=== PATIENT | female | born 1980 | race Caucasian/White ===

== ENCOUNTER 2025-04-19 16:10 | Outpatient (CLI) | payer OTHER, SELFPAY ==
[2025-04-19 16:48] LABS: Microscopic, Urine URINE MICROSCOPIC (MICROSCOPIC)
[2025-04-19 17:15] LABS: Hematocrit 39.2 % (37.0-47.0); Hemoglobin 13.1 g/dL (12.2-16.2); Immature Granulocytes % 0.3 %; Mean Corpuscular HGB Conc 33.4 g/dL (31.8-35.4); Mean Corpuscular Hemoglobin 29.7 pg (27.0-31.2); Mean Corpuscular Volume 88.9 fl (81-99); Nucleated Red Blood Cells % 0 %; Platelet Count 392 K/mm3 (142-424); Red Blood Count 4.41 M/mm3 (4.20-5.40); Red Cell Distribution Width-SD 41.0 fL; White Blood Count 7.7 K/mm3 (4.8-10.8)
[2025-04-19 17:16] LABS: Bilirubin,Urine Negative (Negative); Color,Urine YELLOW (Yellow); Glucose,Urine (UA) Negative (Negative); Ketones,Urine TRACE (Negative); Leukocyte Esterase,Urine Negative (Negative); PH,Urine 6.0 (5.0-8.5); Protein,Urine Negative (Negative); Specific Gravity, Urine 1.020 (1.005-1.030); Urobilinogen,Urine 0.2 EU/dl (0.2)
[2025-04-19 17:38] LABS: Alanine Aminotransferase 38 U/L (12-78); Albumin Level 4.7 g/dl (3.5-5.0); Albumin/Globulin Ratio 1.5 (1.1-1.8); Alkaline Phosphatase 84 U/L (38-126); Anion Gap 16.4 mEq/L (5-15); Aspartate Amino Transferase 29 U/L (14-36); Bilirubin,Total 1.2 mg/dl (0.2-1.3); Blood Urea Nitrogen 10 mg/dl (7-17); Calcium 10.3 mg/dl (8.4-10.2); Carbon Dioxide 26 mmol/L (22.0-30.0); Chloride 100 mmol/L (98-107); Cholesterol 215 mg/dl (140-200); Creatinine,Serum 0.70 mg/dl (0.52-1.04); Estimated Glomerular Filt Rate 91 ml/min (>60); GFR (African American) 110 ML/MIN (>60); Globulin 3.1 g/dL (1.3-3.2); Glucose 80 mg/dl (74-100); HDL Cholesterol 72 mg/dl (40-60); Potassium 4.4 mmoL/L (3.5-5.1); Sodium 138 mmol/L (136-145); Total Protein,Serum 7.8 g/dl (6.3-8.2); Triglycerides 81 mg/dl (30-150)
[2025-04-19 17:56] LABS: Free T4 (Free Thyroxine) 1.17 ng/dl (0.78-2.19)
[2025-04-19 17:58] LABS: 25-OH Vitamin D, Total 36.8 ng/mL (30-100)
[2025-04-19 18:09] LABS: Thyroid Stimulating Hormone < 0.02 uIU/mL (0.465-4.68)
[2025-04-19 18:28] LABS: Hepatitis C Ab Qual. W/ RFX NEGATIVE (Negative); Vitamin B12 293 pg/mL (239-931)
[2025-04-19 18:31] LABS: Bacteria,Urine 2+ /lpf; Mucus,Urine 1+ /lpf; RBC,Urine Occasional #/hpf (0-3)
[2025-04-19 18:42] LABS: Iron 134 ug/dL (37-170)
[2025-04-19 18:55] LABS: Hemoglobin A1C 5.1 % (4.0-6.0); Total Iron Binding Capacity 380 ug/dL (265-497)
[2025-04-19 19:21] LABS: Ferritin 14.8 ng/ml (6.24-137)
--- OUTSIDE RECORDS SUMMARY | 2025-04-20 10:48 | XMS_ITS | Clinical Summary ---
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 Role Phone Gladis Villarreal MD Primary Care Provider [phone] Allergies No known active allergies Medications atenolol (TENORMIN) 25 MG tablet 02/14/2023 Active Family History Medical History Relation Name Comments Hypertension Father Hypertension Mother Thyroid cancer Sister Relation Name Status Comments Father Alive Mother Alive Sister Alive Social History Tobacco Use Types Packs/Day Years Used Date Smoking Tobacco: Never Passive Smoke Exposure: Never Smokeless Tobacco: Never Tobacco Cessation:Counseling Given: Not Answered Alcohol Use Standard Drinks/Week Comments Yes 0 (1 standard drink = 0.6 oz pur e alcohol) Abuse Screen Answer Date Recorded Unsafe at Home or Work/School Not on file Feels Threatened by Someone? Not on file 03/2023 Does Anyone Keep You from Co ntacting Others or Doint Things Outside the Home? Not on file 04/27/2023 Physical Sign of Abuse Present Not on file 1 Housing Stability Answer Date Recorded Current Living Arrangements Not on file 03/2023 Potentially Unsafe Housing Conditions Not on larry e 04/27/2023 Family and Community Support Answer Bruce e Recorded Help with Day-to-Day Activities Not on file 04/27/2023 Lonely or Isolated Not on file 04/27/2023 Employment Answer Date Recorded Do you want help finding or keeping work or a jeane b? Not on file 04/27/2023 Disabilities Answer Date Recorded Concentrating, Remembering, or Making Decisions Difficulty Not on file 04/27/2023 Doing Errands Independently Difficulty Not on fi le 04/27/2023 Education Answer Date Recorded Help with school or training? Not on file Preferred Language Not on file 04/27/2023 Comments Unknown Sex and Gender Information Value Date Recorded Sex Assigned at Not on file Legal Sex Female 1:03 PM EDT Gender Identity Not on file Sexual Orientation Not on file Last Filed Vital Signs Vital Sign Reading Time Taken Comments Blood Pressure 124/78 10/05/2023 2:11 PM EDT Pulse 66 10/05/2023 2:11 PM EDT Temperature - - Respiratory Rate - - Oxygen Saturation 99% 10/05/2023 2:11 PM EDT Inhaled Oxygen Concentration - - Weight 59.3 kg (130 lb 12.8 oz) 10/05/2023 2:11 PM EDT Height 162.6 cm (5' 4 ) 10/05/2023 2:11 PM EDT Body Mass Index 22.45 10/05/2023 2:11 PM EDT Plan of Treatment Health Maintenance Due Date Last Done Comments Annual Gynecologic Pelvic an d Breast Exam 1981 TDAP/TD VACCINES (1 - Tdap) 02/07/2000 MAMMOGRAM 2021 ANNUAL PHYSICAL 02/16/2023 HEPATITIS C SCREENING 02/16/2023 INFLUENZA VACCINE 02/17/2025 Pneumococcal Vaccine 0-49 Aged Out No longer eligible based on patient's age to complete this topic Insurance [facility] Care Teams 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
--- OUTSIDE RECORDS SUMMARY | 2025-04-20 10:48 | XMS_ITS | Data Portability ---
Author Organization [place] - [facility] & LARS Hansen ADMIN Address [address] [place] [id number] Care Team Providers Care Tear Down Matcher Name Role Phone ОЛЕГ REED Family Medicine ОЛЕГ REED Primary Care Provider Assessment Encounter Date Assessment Date Assessment LastModified by Organization Details LastModified Time 06/02/2024 06/02/2024 given duration and recurrence of symptoms, we will plan for imaging as noted below. We have also plan for some additional lab work to assess. We discussed potential differential diagnosis including musculoskeletal cause such as iliopsoas related symptoms. [email or web address] Not available 06/02/2024 17:28:29 08/05/2024 08/05/2024 Follow up in 4 weeks. [email or web address] Not available 08/08/2024 14:52:23 09/01/2024 09/01/2024 CT findings 08/17 found a 4 mm hypodense lesion on the liver as well as a nodule in the lung. PCP is following up with chest CT. No acute intra-abdominal abnormalities or specific etiology to account for lower abdominal pain. [email or web address] Not available 09/01/2024 09:36:21 Plan of Treatment Reminders Order Date Submit Date Provider Last Modified By Organization Details Last Modified Time Details Appointments None recorded. Lab celiac disease serology panel, serum 2024 025 [facility] ([facility], [address] [facility], [place], [address], 16:10:15 CBC w/ auto diff 2024 025 [facility] ([facility], [address] [place], [address], 5 16:10:16 CMP, serum or plasma 2024 025 [facility]), [address] [place], [address], 5 16:10:17 C reactive protein, QN, serum or plasma 2024 025 [facility] [address] [place], [address], 5 16:10:19 gastrointes tinal pathogens DNA + RNA panel, LUDY+non-pro be, stool 2024 025 [facility] ([place]), [address] [place], [address], 5 11:08:46 calprotecti n, stool 2024 025 [facility] ([place] [address] [place], [address], 5 11:08:51 pancreatic elastase, quant, stool 2024 025 [facility] ([place]), [address] [place], [address], 5 11:08:50 O&P (ova & parasites), stool 2024 025 [facility] ([place]), [address] [place], [address], 5 11:08:54 H pylori Ag, qual immunoassay , stool [email or web address] ([place]), [address] [place], [address], 5 11:47:02 CMP, serum or plasma 11/2023 [facility] [address] [facility], [place], [address], 4 14:15:29 CBC w/ auto diff 2023 024 [facility] ([place]), [address] [facility], [place], [address], 4 14:15:27 lipase, serum or plasma 2023 024 [facility] [address] [facility], [place], [address], 4 14:15:34 urinalysis, dipstick 2023 ana [facility], [address], [place], [address], 4 14:19:03 ESR (erythrocyt e sedimentati on rate), blood 2023 024 [facility]), [address] [facility], [place], [address], 4 14:15:33 C reactive protein, QN, serum or plasma 2023 024 [facility] ([place]), [address] [facility], [place], [address], 4 14:15:35 rf (rheumatoid factor) + anti-ccp abs, serum 2023 024 [facility] ([place]), [address] [place], [address], 4 14:15:31 lipid panel, serum 2023 024 [facility] [address] [place], [address], 4 14:15:30 lipid panel, serum 06/05/ 2024 06/05/2 024 [facility], [address], [address], [place], [address], 4 06:19:28 HbA1c (hemoglobin A1c), blood 2023 024 [facility], [address], [address], [place], [address], 4 06:19:29 CBC w/ auto diff 2023 024 [facility], [address], [address], [place], [address], 4 06:19:26 CMP, serum or plasma 2023 024 [facility], [address], [address], [place], [address], 4 06:19:27 Referral None recorded. Procedures None recorded. Surgeries None recorded. Imaging CT, abdomen + pelvis, w/ contrast 2023 024 [facility], [address], [address], [place], [address], 5 08:43:49 XR, elbow, 3 or more view 2023 024 [email or web address] [facility] ([facility]), [address], [place], [address], 4 17:16:44 Medication Orders atenolol 25 mg tablet 2023 024 [facility], [address] [place], [address], 4 14:19:27 Patient TargetsNo targets recorded. Patient Instructions Encounter Date Encounter Id Patient Instructions Last Modified By Organization Details Last Modified Time 09/01/2024 [id number] Follow up in 2 months or sooner if needed. [email or web address] Not available 09/01/2024 09:41:29 Reason for Referral None Reported. Results Created Date Observation Date Name Description Value Unit Range Abnormal Flag Note LastModifiedBy Organization Detail LastModifiedTime 12/23/19 24 12/24/2023 CBC WITH DIFFE RENTI AL/PL ATELE T WBC 7.0 x10e3 /uL 3.4-10 .8 Not Available [facility] ([facility]) [address] [facility], [place], [address], 12/24/2023 06:19:26 12/23/19 24 12/24/2023 CBC WITH DIFFE RENTI AL/PL ATELE T RBC 4.18 x10e6 /uL 3.77-5 .28 Not Available [facility] ([facility]) [address] [place], [address], 12/24/2023 06:19:26 12/23/19 24 12/24/2023 CBC WITH DIFFE RENTI AL/PL ATELE T hemoglobin 13.1 g/dL 11.1-1 5.9 Not Available [facility] ([facility]) [address] [facility], [place], [address], 12/24/2023 06:19:26 12/23/19 24 12/24/2023 CBC WITH DIFFE RENTI AL/PL ATELE T hematocrit 39.2 % 34.0-4 6.6 Not Available [facility] ([facility]) [address] [facility], [place], [address], 12/24/2023 06:19:26 12/23/19 24 12/24/2023 CBC WITH DIFFE RENTI AL/PL ATELE T MCV 94 fL 79-97 Not Available [facility] ([facility]) [address] [facility], [place], [address], 12/24/2023 06:19:26 12/23/19 24 12/24/2023 CBC WITH DIFFE RENTI AL/PL ATELE T MCH 31.3 pg 26.6-3 3.0 Not Available [facility] ([facility]) [address] [facility], [place], [address], 12/24/2023 06:19:26 12/23/19 24 12/24/2023 CBC WITH DIFFE RENTI AL/PL ATELE T MCHC 33.4 g/dL 31.5-3 5.7 Not Available [facility] ([facility]) [address] [facility], [place], [address], 12/24/2023 06:19:26 12/23/19 24 12/24/2023 CBC WITH DIFFE RENTI AL/PL ATELE T RDW 12.0 % 11.7-1 5.4 Not Available [facility] ([facility]) [address] [facility], [place], [address], 12/24/2023 06:19:26 12/23/19 24 12/24/2023 CBC WITH DIFFE RENTI AL/PL ATELE T platelets 418 x10e3 /uL 150-45 0 Not Available [facility] ([facility]) [address] [facility], [place], [address], 12/24/2023 06:19:26 12/23/19 24 12/24/2023 CBC WITH DIFFE RENTI AL/PL ATELE T neutrophils 57 % not estab. Not Available [facility] ([facility]) [address] [facility], [place], [address], 12/24/2023 06:19:26 12/23/19 24 12/24/2023 CBC WITH DIFFE RENTI AL/PL ATELE T lymphs 34 % not estab. Not Available [facility] ([facility]) [address] [facility], [place], [address], 12/24/2023 06:19:26 12/23/19 24 12/24/2023 CBC WITH DIFFE RENTI AL/PL ATELE T monocytes 8 % not estab. Not Available [facility] ([facility]) [address] [facility], [place], [address], 12/24/2023 06:19:26 12/23/19 24 12/24/2023 CBC WITH DIFFE RENTI AL/PL ATELE T eos 1 % not estab. Not Available [facility] ([facility]) [address] [place], [address], 12/24/2023 06:19:26 12/23/19 24 12/24/2023 CBC WITH DIFFE RENTI AL/PL ATELE T basos 0 % not estab. Not Available [facility] ([facility]) [address] [facility], [place], [address], 12/24/2023 06:19:26 12/23/19 24 12/24/2023 CBC WITH DIFFE RENTI AL/PL ATELE T immature cells MINISTER HELPER Not Available [facility] ([facility]) [address] [place], [address], 12/24/2023 06:19:26 12/23/19 24 12/24/2023 CBC WITH DIFFE RENTI AL/PL ATELE T neutrophils (absolute) 4.0 x10e3 /uL 1.4-7. 0 Not Available [facility] ([facility]) [address] [place], [address], 12/24/2023 06:19:26 12/23/19 24 12/24/2023 CBC WITH DIFFE RENTI AL/PL ATELE T lymphs (absolute) 2.4 x10e3 /uL 0.7-3. 1 Not Available [facility] ([facility]) [address] [place], [address], 12/24/2023 06:19:26 12/23/19 24 12/24/2023 CBC WITH DIFFE RENTI AL/PL ATELE T monocytes(ab solute) 0.6 x10e3 /uL 0.1-0. 9 Not Available [facility] ([facility]) [address] [facility], [place], [address], 12/24/2023 06:19:26 12/23/19 24 12/24/2023 CBC WITH DIFFE RENTI AL/PL ATELE T eos (absolute) 0.1 x10e3 /uL 0.0-0. 4 Not Available [facility] ([facility]) [address] [facility], [place], [address], 12/24/2023 06:19:26 12/23/19 24 12/24/2023 CBC WITH DIFFE RENTI AL/PL ATELE T baso (absolute) 0.0 x10e3 /uL 0.0-0. 2 Not Available [facility] ([facility]) [address] [facility], [place], [address], 12/24/2023 06:19:26 12/23/19 24 12/24/2023 CBC WITH DIFFE RENTI AL/PL ATELE T immature granulocytes 0 % not estab. Not Available [facility] ([facility]) [address] [facility], [place], [address], 12/24/2023 06:19:26 12/23/19 24 12/24/2023 CBC WITH DIFFE RENTI AL/PL ATELE T immature grans (abs) 0.0 x10e3 /uL 0.0-0. 1 Not Available [facility] ([facility]) [address] [facility], [place], [address], 12/24/2023 06:19:26 12/23/19 24 12/24/2023 CBC WITH DIFFE RENTI AL/PL ATELE T NRBC MINISTER HELPER Not Available [facility] ([facility]) [address] [facility], [place], [address], 12/24/2023 06:19:26 12/23/19 24 12/24/2023 CBC WITH DIFFE RENTI AL/PL ATELE T hematology comments: MINISTER HELPER Not Available [facility] ([facility]) [address] [facility], [place], [address], 12/24/2023 06:19:26 12/23/19 24 12/24/2023 COMP. METAB OLIC PANEL (14) glucose 80 mg/dL 70-99 Not Available [facility] ([facility]) [address] [facility] [place], [address], 12/24/2023 06:19:27 12/23/19 24 12/24/2023 COMP. METAB OLIC PANEL (14) BUN 10 mg/dL 6-24 Not Available [facility] ([facility]) [address] [facility] [place], [address], 12/24/2023 06:19:27 12/23/19 24 12/24/2023 COMP. METAB OLIC PANEL (14) creatinine 0.73 mg/dL 0.57-1 .00 Not Available [facility] ([facility]) [address] [facility] [place], [address], 12/24/2023 06:19:27 12/23/19 24 12/24/2023 COMP. METAB OLIC PANEL (14) eGFR 105 mL/mi n/1.7 3 >59 Not Available [facility] ([facility]) [address] [facility] [place], [address], 12/24/2023 06:19:27 12/23/19 24 12/24/2023 COMP. METAB OLIC PANEL (14) BUN/creatini ne ratio 14 9-23 Not Available [facility] ([facility]) [address] [facility] [place], [address], 12/24/2023 06:19:27 12/23/19 24 12/24/2023 COMP. METAB OLIC PANEL (14) sodium 137 mmol/ L 134-14 4 Not Available [facility] ([facility]) [address] [facility] [place], [address], 12/24/2023 06:19:27 12/23/19 24 12/24/2023 COMP. METAB OLIC PANEL (14) potassium 4.8 mmol/ L 3.5-5. 2 Not Available [facility] ([facility]) [address] [place], [address], 12/24/2023 06:19:27 12/23/19 24 12/24/2023 COMP. METAB OLIC PANEL (14) chloride 102 mmol/ L 96-106 Not Available [facility] ([facility]) [address] [facility] [place], [address], 12/24/2023 06:19:27 12/23/19 24 12/24/2023 COMP. METAB OLIC PANEL (14) carbon dioxide, total 20 mmol/ L 20-29 Not Available [facility] ([facility]) [address] [facility], [place], [address], 12/24/2023 06:19:27 12/23/19 24 12/24/2023 COMP. METAB OLIC PANEL (14) calcium 10.0 mg/dL 8.7-10 .2 Not Available [facility] ([facility]) [address] [place], [address], 12/24/2023 06:19:27 12/23/19 24 12/24/2023 COMP. METAB OLIC PANEL (14) protein, total 7.5 g/dL 6.0-8. 5 Not Available [facility] ([facility]) [address] [place], [address], 12/24/2023 06:19:27 12/23/19 24 12/24/2023 COMP. METAB OLIC PANEL (14) albumin 4.6 g/dL 3.9-4. 9 Not Available [facility] ([facility]) [address] [place], [address], 12/24/2023 06:19:27 12/23/19 24 12/24/2023 COMP. METAB OLIC PANEL (14) globulin, total 2.9 g/dL 1.5-4. 5 Not Available [facility] ([facility]) [address] [facility] [place], [address], 12/24/2023 06:19:27 12/23/19 24 12/24/2023 COMP. METAB OLIC PANEL (14) A/G ratio 1.6 1.2-2. 2 Not Available [facility] ([facility]) [address] [facility] [place], [address], 12/24/2023 06:19:27 12/23/19 24 12/24/2023 COMP. METAB OLIC PANEL (14) bilirubin, total 0.7 mg/dL 0.0-1. 2 Not Available [facility] ([facility] [address] [place], [address], 12/24/2023 06:19:27 12/23/19 24 12/24/2023 COMP. METAB OLIC PANEL (14) alkaline phosphatase 49 IU/L 44-121 Not Available [facility] ([facility]) [address] [facility] [place], [address], 12/24/2023 06:19:27 12/23/19 24 12/24/2023 COMP. METAB OLIC PANEL (14) AST (SGOT) 17 IU/L 0-40 Not Available [facility] ([facility]) [address] [facility] [place], [address], 12/24/2023 06:19:27 12/23/19 24 12/24/2023 COMP. METAB OLIC PANEL (14) ALT (SGPT) 26 IU/L 0-32 Not Available [facility] ([facility]) [address] [facility] [place], [address], 12/24/2023 06:19:27 12/23/19 24 12/24/2023 LIPID PANEL cholesterol, total 201 mg/dL 100-19 9 above high normal Not Available [facility] ([facility]) [address] [facility] [place], [address], 12/24/2023 06:19:28 12/23/19 24 12/24/2023 LIPID PANEL triglyceride s 58 mg/dL 0-149 Not Available [facility] ([facility]) [address] [facility] [place], [address], 12/24/2023 06:19:28 12/23/19 24 12/24/2023 LIPID PANEL HDL cholesterol 79 mg/dL >39 Not Available [facility] ([facility]) [address] [facility] [place], [address], 12/24/2023 06:19:28 12/23/19 24 12/24/2023 LIPID PANEL VLDL cholesterol vickie 11 mg/dL 5-40 Not Available [facility] ([facility]) [address] [facility] [place], [address], 12/24/2023 06:19:28 12/23/19 24 12/24/2023 LIPID PANEL LDL chol calc ([facility]) 111 mg/dL 0-99 above high normal Not Available [facility] ([facility]) [address] [facility] [place], [address], 12/24/2023 06:19:28 12/23/19 24 12/24/2023 LIPID PANEL comment: MINISTER HELPER Not Available [facility] ([facility]) [address] [facility], [place], [address], 12/24/2023 06:19:28 12/23/19 24 12/24/2023 HEMOG LOBIN A1C hemoglobin A1C 5.3 % 4.8-5. 6 Predi abete s: 5.7 - 6.4 Diabe jessa: >6.4 Glyce isidro contr ol for adult s with diabe jessa: <7.0 Not Available [facility] ([facility]) [address] [place], [address], 12/24/2023 06:19:29 06/02/20 24 06/03/2024 CBC WITH DIFFE RENTI AL/PL ATELE T WBC 8.0 x10e3 /uL 3.4-10 .8 normal Not Available [facility] ([facility]) [address] [facility], [place], [address], 06/03/2024 14:15:27 06/02/20 24 06/03/2024 CBC WITH DIFFE RENTI AL/PL ATELE T RBC 4.19 x10e6 /uL 3.77-5 .28 normal Not Available [facility] ([facility]) [address] [place], [address], 06/03/2024 14:15:27 06/02/20 24 06/03/2024 CBC WITH DIFFE RENTI AL/PL ATELE T hemoglobin 13.3 g/dL 11.1-1 5.9 normal Not Available [facility] ([facility]) [address] [place], [address], 06/03/2024 14:15:27 06/02/20 24 06/03/2024 CBC WITH DIFFE RENTI AL/PL ATELE T hematocrit 40.4 % 34.0-4 6.6 normal Not Available [facility] ([facility]) [address] [facility], [place], [address], 06/03/2024 14:15:27 06/02/20 24 06/03/2024 CBC WITH DIFFE RENTI AL/PL ATELE T MCV 96 fL 79-97 normal Not Available [facility] ([facility]) [address] [place], [address], 06/03/2024 14:15:27 06/02/20 24 06/03/2024 CBC WITH DIFFE RENTI AL/PL ATELE T MCH 31.7 pg 26.6-3 3.0 normal Not Available [facility] ([facility]) [address] [place], [address], 06/03/2024 14:15:27 06/02/20 24 06/03/2024 CBC WITH DIFFE RENTI AL/PL ATELE T MCHC 32.9 g/dL 31.5-3 5.7 normal Not Available [facility] ([facility]) [address] [facility], [place], [address], 06/03/2024 14:15:27 06/02/20 24 06/03/2024 CBC WITH DIFFE RENTI AL/PL ATELE T RDW 11.7 % 11.7-1 5.4 Not Available [facility] ([facility]) [address] [facility], [place], [address], 06/03/2024 14:15:27 06/02/20 24 06/03/2024 CBC WITH DIFFE RENTI AL/PL ATELE T platelets 356 x10e3 /uL 150-45 0 normal Not Available [facility] ([facility]) [address] [facility], [place], [address], 06/03/2024 14:15:27 06/02/20 24 06/03/2024 CBC WITH DIFFE RENTI AL/PL ATELE T neutrophils 62 % not estab. normal Not Available [facility] ([facility]) [address] [facility], [place], [address], 06/03/2024 14:15:27 06/02/20 24 06/03/2024 CBC WITH DIFFE RENTI AL/PL ATELE T lymphs 29 % not estab. normal Not Available [facility] ([facility]) [address] [facility], [place], [address], 06/03/2024 14:15:27 06/02/20 24 06/03/2024 CBC WITH DIFFE RENTI AL/PL ATELE T monocytes 8 % not estab. normal Not Available [facility] ([facility]) [address] [facility], [place], [address], 06/03/2024 14:15:27 06/02/20 24 06/03/2024 CBC WITH DIFFE RENTI AL/PL ATELE T eos 1 % not estab. normal Not Available [facility] ([facility]) [address] [facility], [place], [address], 06/03/2024 14:15:27 06/02/20 24 06/03/2024 CBC WITH DIFFE RENTI AL/PL ATELE T basos 0 % not estab. normal Not Available [facility] ([facility]) [address] [facility], [place], [address], 06/03/2024 14:15:27 06/02/20 24 06/03/2024 CBC WITH DIFFE RENTI AL/PL ATELE T immature cells MINISTER HELPER Not Available [facility] ([facility]) [address] [facility], [place], [address], 06/03/2024 14:15:27 06/02/20 24 06/03/2024 CBC WITH DIFFE RENTI AL/PL ATELE T neutrophils (absolute) 4.9 x10e3 /uL 1.4-7. 0 normal Not Available [facility] ([facility]) [address] [place], [address], 06/03/2024 14:15:27 06/02/20 24 06/03/2024 CBC WITH DIFFE RENTI AL/PL ATELE T lymphs (absolute) 2.3 x10e3 /uL 0.7-3. 1 normal Not Available [facility] ([facility]) [address] [place], [address], 06/03/2024 14:15:27 06/02/20 24 06/03/2024 CBC WITH DIFFE RENTI AL/PL ATELE T monocytes(ab solute) 0.7 x10e3 /uL 0.1-0. 9 normal Not Available [facility] ([facility]) [address] [place], [address], 06/03/2024 14:15:27 06/02/20 24 06/03/2024 CBC WITH DIFFE RENTI AL/PL ATELE T eos (absolute) 0.1 x10e3 /uL 0.0-0. 4 normal Not Available [facility] ([facility]) [address] [facility], [place], [address], 06/03/2024 14:15:27 06/02/20 24 06/03/2024 CBC WITH DIFFE RENTI AL/PL ATELE T baso (absolute) 0.0 x10e3 /uL 0.0-0. 2 normal Not Available [facility] ([facility]) [address] [facility], [place], [address], 06/03/2024 14:15:27 06/02/20 24 06/03/2024 CBC WITH DIFFE RENTI AL/PL ATELE T immature granulocytes 0 % not estab. Not Available [facility] ([facility]) [address] [facility], [place], [address], 06/03/2024 14:15:27 06/02/20 24 06/03/2024 CBC WITH DIFFE RENTI AL/PL ATELE T immature grans (abs) 0.0 x10e3 /uL 0.0-0. 1 Not Available [facility] ([facility]) [address] [facility], [place], [address], 06/03/2024 14:15:27 06/02/20 24 06/03/2024 CBC WITH DIFFE RENTI AL/PL ATELE T NRBC MINISTER HELPER Not Available [facility] ([facility]) [address] [facility], [place], [address], 06/03/2024 14:15:27 06/02/20 24 06/03/2024 CBC WITH DIFFE RENTI AL/PL ATELE T hematology comments: MINISTER HELPER Not Available [facility] ([facility]) [address] [facility], [place], [address], 06/03/2024 14:15:27 06/02/20 24 06/03/2024 COMP. METAB OLIC PANEL (14) glucose 83 mg/dL 70-99 normal Not Available [facility] ([facility]) [address] [facility] [place], [address], 06/03/2024 14:15:29 06/02/20 24 06/03/2024 COMP. METAB OLIC PANEL (14) BUN 13 mg/dL 6-24 normal Not Available [facility] ([facility]) [address] [facility] [place], [address], 06/03/2024 14:15:29 06/02/20 24 06/03/2024 COMP. METAB OLIC PANEL (14) creatinine 0.74 mg/dL 0.57-1 .00 normal Not Available [facility] ([facility]) [address] [facility], [place], [address], 06/03/2024 14:15:29 06/02/20 24 06/03/2024 COMP. METAB OLIC PANEL (14) eGFR 103 mL/mi n/1.7 3 >59 normal Not Available [facility] ([facility]) [address] [facility] [place], [address], 06/03/2024 14:15:29 06/02/20 24 06/03/2024 COMP. METAB OLIC PANEL (14) BUN/creatini ne ratio 18 9-23 normal Not Available [facility] ([facility]) [address] [place], [address], 06/03/2024 14:15:29 06/02/20 24 06/03/2024 COMP. METAB OLIC PANEL (14) sodium 136 mmol/ L 134-14 4 normal Not Available [facility] ([facility]) [address] [place], [address], 06/03/2024 14:15:29 06/02/20 24 06/03/2024 COMP. METAB OLIC PANEL (14) potassium 4.5 mmol/ L 3.5-5. 2 normal Not Available [facility] ([facility]) [address] [place], [address], 06/03/2024 14:15:29 06/02/20 24 06/03/2024 COMP. METAB OLIC PANEL (14) chloride 102 mmol/ L 96-106 normal Not Available [facility] ([facility]) [address] [place], [address], 06/03/2024 14:15:29 06/02/20 24 06/03/2024 COMP. METAB OLIC PANEL (14) carbon dioxide, total 25 mmol/ L 20-29 normal Not Available [facility] ([facility]) [address] [place], [address], 06/03/2024 14:15:29 06/02/20 24 06/03/2024 COMP. METAB OLIC PANEL (14) calcium 10.1 mg/dL 8.7-10 .2 normal Not Available [facility] ([facility]) [address] [place], [address], 06/03/2024 14:15:29 06/02/20 24 06/03/2024 COMP. METAB OLIC PANEL (14) protein, total 7.5 g/dL 6.0-8. 5 normal Not Available [facility] ([facility]) [address] [place], [address], 06/03/2024 14:15:29 06/02/20 24 06/03/2024 COMP. METAB OLIC PANEL (14) albumin 4.5 g/dL 3.9-4. 9 normal Not Available [facility] ([facility]) [address] [place], [address], 06/03/2024 14:15:29 06/02/20 24 06/03/2024 COMP. METAB OLIC PANEL (14) globulin, total 3.0 g/dL 1.5-4. 5 Not Available [facility] ([facility]) [address], [place], [address], 06/03/2024 14:15:29 06/02/20 24 06/03/2024 COMP. METAB OLIC PANEL (14) bilirubin, total 0.8 mg/dL 0.0-1. 2 normal Not Available [facility] ([facility]) [address] [place], [address], 06/03/2024 14:15:29 06/02/20 24 06/03/2024 COMP. METAB OLIC PANEL (14) alkaline phosphatase 46 IU/L 44-121 normal Not Available [facility] ([facility]) [address] [place], [address], 06/03/2024 14:15:29 06/02/20 24 06/03/2024 COMP. METAB OLIC PANEL (14) AST (SGOT) 16 IU/L 0-40 normal Not Available [facility] ([facility]) [address] [place], [address], 06/03/2024 14:15:29 06/02/20 24 06/03/2024 COMP. METAB OLIC PANEL (14) ALT (SGPT) 14 IU/L 0-32 normal Not Available [facility] ([facility]) [address] [place], [address], 06/03/2024 14:15:29 06/02/20 24 06/03/2024 LIPID PANEL cholesterol, total 191 mg/dL 100-19 9 normal Not Available [facility] ([facility]) [address] [place], [address], 06/03/2024 14:15:30 06/02/20 24 06/03/2024 LIPID PANEL triglyceride s 56 mg/dL 0-149 normal Not Available [facility] ([facility]) [address] [place], [address], 06/03/2024 14:15:30 06/02/20 24 06/03/2024 LIPID PANEL HDL cholesterol 67 mg/dL >39 normal Not Available [facility] ([facility]) [address] [place], [address], 06/03/2024 14:15:30 06/02/20 24 06/03/2024 LIPID PANEL VLDL cholesterol vickie 11 mg/dL 5-40 Not Available [facility] ([facility]) [address] [place], [address], 06/03/2024 14:15:30 06/02/20 24 06/03/2024 LIPID PANEL LDL chol calc ([facility]) 113 mg/dL 0-99 above high normal Not Available [facility] ([facility]) [address] [place], [address], 06/03/2024 14:15:30 06/02/20 24 06/03/2024 LIPID PANEL LDL calc comment: MINISTER HELPER Not Available [facility] ([facility]) [address] [place], [address], 06/03/2024 14:15:30 06/02/20 24 06/03/2024 RHEUM ATOID ARTHR ITIS PROFI LE rheumatoid factor (rf) <10.0 IU/mL <14.0 Not Available [facility] ([facility]) [address] [place], [address], 06/03/2024 14:15:31 06/02/20 24 06/03/2024 RHEUM ATOID ARTHR ITIS PROFI LE anti-ccp Ab, IgG/IgA 13 units 0-19 Negat stanley <20 Weak posit stanley 20 - 39 Moder ate posit stanley 40 - 59 Stron g posit stanley >59 Not Available [facility] ([facility]) [address] [place], [address], 06/03/2024 14:15:31 06/02/20 24 06/03/2024 SEDIM ENTAT ION RATE- WESTE RGREN sedimentatio n rate-westerg jose david 2 mm/HR 0-32 normal Not Available [facility] ([facility]) [address] [facility], [place], [address], 06/03/2024 14:15:33 06/02/20 24 06/03/2024 LIPAS E lipase 48 U/L 14-72 normal Not Available [facility] ([facility]) [address] [facility], [place], [address], 06/03/2024 14:15:34 06/02/20 24 06/03/2024 C-ROSALIA CTIVE PROTE IN, QUANT C-reactive protein, quant <1 mg/L 0-10 Not Available [facility] ([facility]) [address] [facility], [place], [address], 06/03/2024 14:15:35 06/02/20 24 06/02/2024 urina lysis , dipst ick Leukocytes (reference range) negati ve Not Available [address], [place], [address], 06/02/2024 13:52:11 06/02/20 24 06/02/2024 urina lysis , dipst ick Nitrite (reference range:) negati ve Not Available [address], [place], [address], 06/02/2024 13:52:11 06/02/20 24 06/02/2024 urina lysis , dipst ick Urobilinogen (reference range) 0.2 Not Available [address], [place], [address], 06/02/2024 13:52:11 06/02/20 24 06/02/2024 urina lysis , dipst ick Protein (reference range) negati ve Not Available [address], [place], [address], 06/02/2024 13:52:11 06/02/20 24 06/02/2024 urina lysis , dipst ick pH (reference range 5-8.5) 5.5 Not Available [facility] [address] [address], [place], [address], 06/02/2024 13:52:11 06/02/20 24 06/02/2024 urina lysis , dipst ick Blood (reference range:) negati ve Not Available [facility] [address] [facility] [address], [place], [address], 06/02/2024 13:52:11 06/02/20 24 06/02/2024 urina lysis , dipst ick Specific [place] (reference range) 1.025 Not Available [facility], [place], [address], 06/02/2024 13:52:11 06/02/20 24 06/02/2024 urina lysis , dipst ick Ketone (reference range) modera te Not Available [facility] [address] [facility] [address], [place], [address], 06/02/2024 13:52:11 06/02/20 24 06/02/2024 urina lysis , dipst ick Bilirubin (reference range) negati ve Not Available [facility] [address] [facility] [address], [place], [address], 06/02/2024 13:52:11 06/02/20 24 06/02/2024 urina lysis , dipst ick Glucose (reference range) negati ve Not Available [facility] [address] [facility] [address], [place], [address], 06/02/2024 13:52:11 06/02/20 24 06/02/2024 urina lysis , dipst ick Color (reference range: yellow-brown ) Yellow Not Available [facility], [place], [address], 06/02/2024 13:52:11 08/05/19 25 08/06/2024 STEPHANIE C DISEA SE PANEL T-transgluta minase (ttg) IgA <2 U/mL 0-3 Negat stanley 0 - 3 Weak Posit stanley 4 - 10 Posit stanley >10 Tissu e Trans gluta radha e (tTG) has been ident ified as the endom ysial antig en. Studi es have demon str- ated that endom ysial IgA antib odies have over 99% speci ficit y for glute n sensi tive enter opath y. Not Available [facility] ([facility]) [address] [facility], [place], [address], 08/08/2024 16:10:15 08/05/19 25 08/06/2024 STEPHANIE C DISEA SE PANEL immunoglobul in A, qn, serum 286 mg/dL 87-352 normal Not Available [facility] ([facility]) [address] [place], [address], 08/08/2024 16:10:15 08/05/19 25 08/08/2024 STEPHANIE C DISEA SE PANEL endomysial antibody IgA NEGATI VE negati ve Not Available [facility] ([facility]) [address] [place], [address], 08/08/2024 16:10:15 08/05/19 25 08/06/2024 CBC WITH DIFFE RENTI AL/PL ATELE T WBC 6.0 x10e3 /uL 3.4-10 .8 normal Not Available [facility] ([facility]) [address] [place], [address], 08/08/2024 16:10:16 08/05/19 25 08/06/2024 CBC WITH DIFFE RENTI AL/PL ATELE T RBC 4.34 x10e6 /uL 3.77-5 .28 normal Not Available [facility] ([facility]) [address] [facility], [place], [address], 08/08/2024 16:10:16 08/05/19 25 08/06/2024 CBC WITH DIFFE RENTI AL/PL ATELE T hemoglobin 13.5 g/dL 11.1-1 5.9 normal Not Available [facility] ([facility]) [address] [place], [address], 08/08/2024 16:10:16 08/05/19 25 08/06/2024 CBC WITH DIFFE RENTI AL/PL ATELE T hematocrit 40.4 % 34.0-4 6.6 normal Not Available [facility] ([facility]) [address] [place], [address], 08/08/2024 16:10:16 08/05/19 25 08/06/2024 CBC WITH DIFFE RENTI AL/PL ATELE T MCV 93 fL 79-97 normal Not Available [facility] ([facility]) [address] [place], [address], 08/08/2024 16:10:16 08/05/19 25 08/06/2024 CBC WITH DIFFE RENTI AL/PL ATELE T MCH 31.1 pg 26.6-3 3.0 normal Not Available [facility] ([facility]) [address] [place], [address], 08/08/2024 16:10:16 08/05/19 25 08/06/2024 CBC WITH DIFFE RENTI AL/PL ATELE T MCHC 33.4 g/dL 31.5-3 5.7 normal Not Available [facility] ([facility]) [address] [facility] [place], [address], 08/08/2024 16:10:16 08/05/19 25 08/06/2024 CBC WITH DIFFE RENTI AL/PL ATELE T RDW 11.7 % 11.7-1 5.4 Not Available [facility] ([facility]) [address] [facility], [place], [address], 08/08/2024 16:10:16 08/05/19 25 08/06/2024 CBC WITH DIFFE RENTI AL/PL ATELE T platelets 468 x10e3 /uL 150-45 0 above high normal Not Available [facility] ([facility]) [address] [facility], [place], [address], 08/08/2024 16:10:16 08/05/19 25 08/06/2024 CBC WITH DIFFE RENTI AL/PL ATELE T neutrophils 56 % not estab. normal Not Available [facility] ([facility]) [address] [facility], [place], [address], 08/08/2024 16:10:16 08/05/19 25 08/06/2024 CBC WITH DIFFE RENTI AL/PL ATELE T lymphs 33 % not estab. normal Not Available [facility] ([facility]) [address] [facility], [place], [address], 08/08/2024 16:10:16 08/05/19 25 08/06/2024 CBC WITH DIFFE RENTI AL/PL ATELE T monocytes 9 % not estab. normal Not Available [facility] ([facility]) [address] [facility], [place], [address], 08/08/2024 16:10:16 08/05/19 25 08/06/2024 CBC WITH DIFFE RENTI AL/PL ATELE T eos 2 % not estab. normal Not Available [facility] ([facility]) [address] [facility], [place], [address], 08/08/2024 16:10:16 08/05/19 25 08/06/2024 CBC WITH DIFFE RENTI AL/PL ATELE T basos 0 % not estab. normal Not Available [facility] ([facility]) [address] [facility], [place], [address], 08/08/2024 16:10:16 08/05/19 25 08/06/2024 CBC WITH DIFFE RENTI AL/PL ATELE T immature cells MINISTER HELPER Not Available [facility] ([facility]) [address] [place], [address], 08/08/2024 16:10:16 08/05/19 25 08/06/2024 CBC WITH DIFFE RENTI AL/PL ATELE T neutrophils (absolute) 3.3 x10e3 /uL 1.4-7. 0 normal Not Available [facility] ([facility]) [address] [place], [address], 08/08/2024 16:10:16 08/05/19 25 08/06/2024 CBC WITH DIFFE RENTI AL/PL ATELE T lymphs (absolute) 2.0 x10e3 /uL 0.7-3. 1 normal Not Available [facility] ([facility]) [address] [place], [address], 08/08/2024 16:10:16 08/05/19 25 08/06/2024 CBC WITH DIFFE RENTI AL/PL ATELE T monocytes(ab solute) 0.6 x10e3 /uL 0.1-0. 9 normal Not Available [facility] ([facility]) [address] [place], [address], 08/08/2024 16:10:16 08/05/19 25 08/06/2024 CBC WITH DIFFE RENTI AL/PL ATELE T eos (absolute) 0.1 x10e3 /uL 0.0-0. 4 normal Not Available [facility] ([facility]) [address] [place], [address], 08/08/2024 16:10:16 08/05/19 25 08/06/2024 CBC WITH DIFFE RENTI AL/PL ATELE T baso (absolute) 0.0 x10e3 /uL 0.0-0. 2 normal Not Available [facility] ([facility]) [address] [facility], [place], [address], 08/08/2024 16:10:16 08/05/19 25 08/06/2024 CBC WITH DIFFE RENTI AL/PL ATELE T immature granulocytes 0 % not estab. Not Available [facility] ([facility]) [address] [facility], [place], [address], 08/08/2024 16:10:16 08/05/19 25 08/06/2024 CBC WITH DIFFE RENTI AL/PL ATELE T immature grans (abs) 0.0 x10e3 /uL 0.0-0. 1 Not Available [facility] ([facility]) [address] [facility], [place], [address], 08/08/2024 16:10:16 08/05/19 25 08/06/2024 CBC WITH DIFFE RENTI AL/PL ATELE T NRBC MINISTER HELPER Not Available [facility] ([facility]) [address] [facility], [place], [address], 08/08/2024 16:10:16 08/05/19 25 08/06/2024 CBC WITH DIFFE RENTI AL/PL ATELE T hematology comments: MINISTER HELPER Not Available [facility] ([facility]) [address] [facility], [place], [address], 08/08/2024 16:10:16 08/05/19 25 08/06/2024 COMP. METAB OLIC PANEL (14) glucose 80 mg/dL 70-99 normal Not Available [facility] ([facility]) [address] [facility], [place], [address], 08/08/2024 16:10:17 08/05/19 25 08/06/2024 COMP. METAB OLIC PANEL (14) BUN 13 mg/dL 6-24 normal Not Available [facility] ([facility]) [address] [facility] [place], [address], 08/08/2024 16:10:17 08/05/19 25 08/06/2024 COMP. METAB OLIC PANEL (14) creatinine 0.80 mg/dL 0.57-1 .00 normal Not Available [facility] ([facility]) [address] [facility] [place], [address], 08/08/2024 16:10:17 08/05/19 25 08/06/2024 COMP. METAB OLIC PANEL (14) eGFR 94 mL/mi n/1.7 3 >59 normal Not Available [facility] ([facility]) [address] [facility] [place], [address], 08/08/2024 16:10:17 08/05/19 25 08/06/2024 COMP. METAB OLIC PANEL (14) BUN/creatini ne ratio 16 9-23 normal Not Available [facility] ([facility]) [address] [facility], [place], [address], 08/08/2024 16:10:17 08/05/19 25 08/06/2024 COMP. METAB OLIC PANEL (14) sodium 138 mmol/ L 134-14 4 normal Not Available [facility] ([facility]) [address] [facility] [place], [address], 08/08/2024 16:10:17 08/05/19 25 08/06/2024 COMP. METAB OLIC PANEL (14) potassium 4.5 mmol/ L 3.5-5. 2 normal Not Available [facility] ([facility]) [address] [facility] [place], [address], 08/08/2024 16:10:17 08/05/19 25 08/06/2024 COMP. METAB OLIC PANEL (14) chloride 101 mmol/ L 96-106 normal Not Available [facility] ([facility]) [address] [facility] [place], [address], 08/08/2024 16:10:17 08/05/19 25 08/06/2024 COMP. METAB OLIC PANEL (14) carbon dioxide, total 22 mmol/ L 20-29 normal Not Available [facility] ([facility]) [address] [facility] [place], [address], 08/08/2024 16:10:17 08/05/19 25 08/06/2024 COMP. METAB OLIC PANEL (14) calcium 9.9 mg/dL 8.7-10 .2 normal Not Available [facility] ([facility]) [address] [facility] [place], [address], 08/08/2024 16:10:17 08/05/19 25 08/06/2024 COMP. METAB OLIC PANEL (14) protein, total 7.4 g/dL 6.0-8. 5 normal Not Available [facility] ([facility]) [address] [facility] [place], [address], 08/08/2024 16:10:17 08/05/19 25 08/06/2024 COMP. METAB OLIC PANEL (14) albumin 4.5 g/dL 3.9-4. 9 normal Not Available [facility] ([facility]) [address] [facility] [place], [address], 08/08/2024 16:10:17 08/05/19 25 08/06/2024 COMP. METAB OLIC PANEL (14) globulin, total 2.9 g/dL 1.5-4. 5 Not Available [facility] ([facility]) [address] [facility] [place], [address], 08/08/2024 16:10:17 08/05/19 25 08/06/2024 COMP. METAB OLIC PANEL (14) bilirubin, total 0.5 mg/dL 0.0-1. 2 normal Not Available [facility] ([facility]) [address] [place], [address], 08/08/2024 16:10:17 08/05/19 25 08/06/2024 COMP. METAB OLIC PANEL (14) alkaline phosphatase 46 IU/L 44-121 normal Not Available [facility] ([facility]) [address] [place], [address], 08/08/2024 16:10:17 08/05/19 25 08/06/2024 COMP. METAB OLIC PANEL (14) AST (SGOT) 15 IU/L 0-40 normal Not Available [facility] ([facility]) [address] [place], [address], 08/08/2024 16:10:17 08/05/19 25 08/06/2024 COMP. METAB OLIC PANEL (14) ALT (SGPT) 14 IU/L 0-32 normal Not Available [facility] ([facility]) [address] [place], [address], 08/08/2024 16:10:17 08/05/19 25 08/06/2024 C-ROSALIA CTIVE PROTE IN, QUANT C-reactive protein, quant <1 mg/L 0-10 Not Available [facility] ([facility]) [address] [place], [address], 08/08/2024 16:10:19 08/05/19 25 08/18/2024 SPECI MEN STATU S REPOR T specimen status report COMMEN T Test not perfo rmed due to the age of this speci men. TEST: [id number] 4 H. pylor i Stool Ag, EIA Not Available [facility] ([facility]) [address] [place], [address], 08/22/2024 11:08:56 08/05/19 25 08/18/2024 GI PROFI LE, STOOL , PCR campylobacte r COMMEN T Test not perfo rmed due to the age of this speci men. Not Available [facility] ([facility]) [address] [place], [address], 08/22/2024 11:08:46 08/05/19 25 08/18/2024 GI PROFI LE, STOOL , PCR C difficile toxin A/B TNP Test not perfo rmed Not Available [facility] ([facility]) [address] [place], [address], 08/22/2024 11:08:46 08/05/19 25 08/18/2024 GI PROFI LE, STOOL , PCR plesiomonas shigelloides TNP Test not perfo rmed Not Available [facility] ([facility]) [address] [place], [address], 08/22/2024 11:08:46 08/05/19 25 08/18/2024 GI PROFI LE, STOOL , PCR salmonella TNP Test not perfo rmed Not Available [facility] ([facility]) [address] [place], [address], 08/22/2024 11:08:46 08/05/19 25 08/18/2024 GI PROFI LE, STOOL , PCR vibrio TNP Test not perfo rmed Not Available [facility] ([facility]) [address] [place], [address], 08/22/2024 11:08:46 08/05/19 25 08/18/2024 GI PROFI LE, STOOL , PCR vibrio cholerae TNP Test not perfo rmed Not Available [facility] ([facility]) [address] [place], [address], 08/22/2024 11:08:46 08/05/19 25 08/18/2024 GI PROFI LE, STOOL , PCR yersinia enterocoliti ca TNP Test not perfo rmed Not Available [facility] ([facility]) [address] [place], [address], 08/22/2024 11:08:46 08/05/19 25 08/18/2024 GI PROFI LE, STOOL , PCR enteroaggreg ative E coli TNP Test not perfo rmed Not Available [facility] ([facility]) [address] [place], [address], 08/22/2024 11:08:46 08/05/19 25 08/18/2024 GI PROFI LE, STOOL , PCR enteropathog enic E coli TNP Test not perfo rmed Not Available [facility] ([facility]) [address] [place], [address], 08/22/2024 11:08:46 08/05/19 25 08/18/2024 GI PROFI LE, STOOL , PCR enterotoxige melina E coli TNP Test not perfo rmed Not Available [facility] ([facility]) [address] [place], [address], 08/22/2024 11:08:46 08/05/19 25 08/18/2024 GI PROFI LE, STOOL , PCR shiga-toxin- producing E coli TNP Test not perfo rmed Not Available [facility] ([facility]) [address] [place], [address], 08/22/2024 11:08:46 08/05/19 25 08/18/2024 GI PROFI LE, STOOL , PCR E coli O157 TNP Test not perfo rmed Not Available [facility] ([facility]) [address] [place], [address], 08/22/2024 11:08:46 08/05/19 25 08/18/2024 GI PROFI LE, STOOL , PCR shigella/ent eroinvasive E coli TNP Test not perfo rmed Not Available [facility] ([facility]) [address] [place], [address], 08/22/2024 11:08:46 08/05/19 25 08/18/2024 GI PROFI LE, STOOL , PCR cryptosporid ium TNP Test not perfo rmed Not Available [facility] ([facility]) [address] [place], [address], 08/22/2024 11:08:46 08/05/19 25 08/18/2024 GI PROFI LE, STOOL , PCR cyclospora cayetanensis TNP Test not perfo rmed Not Available [facility] ([facility]) [address] [place], [address], 08/22/2024 11:08:46 08/05/19 25 08/18/2024 GI PROFI LE, STOOL , PCR entamoeba histolytica TNP Test not perfo rmed Not Available [facility] ([facility]) [address] [place], [address], 08/22/2024 11:08:46 08/05/19 25 08/18/2024 GI PROFI LE, STOOL , PCR giardia lamblia TNP Test not perfo rmed Not Available [facility] ([facility]) [address] [place], [address], 08/22/2024 11:08:46 08/05/19 25 08/18/2024 GI PROFI LE, STOOL , PCR adenovirus F 40/41 TNP Test not perfo rmed Not Available [facility] ([facility]) [address] [place], [address], 08/22/2024 11:08:46 08/05/19 25 08/18/2024 GI PROFI LE, STOOL , PCR astrovirus TNP Test not perfo rmed Not Available [facility] ([facility]) [address] [place], [address], 08/22/2024 11:08:46 08/05/19 25 08/18/2024 GI PROFI LE, STOOL , PCR norovirus GI/gii TNP Test not perfo rmed Not Available [facility] ([facility]) [address] [facility], [place], [address], 08/22/2024 11:08:46 08/05/19 25 08/18/2024 GI PROFI LE, STOOL , PCR rotavirus A TNP Test not perfo rmed Not Available [facility] ([facility]) [address] [facility], [place], [address], 08/22/2024 11:08:46 08/05/19 25 08/18/2024 GI PROFI LE, STOOL , PCR sapovirus TNP Test not perfo rmed Not Available [facility] ([facility]) [address] [facility], [place], [address], 08/22/2024 11:08:46 08/05/19 25 08/18/2024 COMP. METAB OLIC PANEL (14) glucose COMMEN T mg/dL Test not perfo rmed. The requi red speci men for the test order ed was not recei blake. Not Available [facility] ([facility]) [address] [place], [address], 08/22/2024 11:08:48 08/05/19 25 08/18/2024 COMP. METAB OLIC PANEL (14) BUN TNP Test not perfo rmed Not Available [facility] ([facility]) [address] [place], [address], 08/22/2024 11:08:48 08/05/19 25 08/18/2024 COMP. METAB OLIC PANEL (14) creatinine TNP Test not perfo rmed Not Available [facility] ([facility]) [address] [place], [address], 08/22/2024 11:08:48 08/05/19 25 08/18/2024 COMP. METAB OLIC PANEL (14) eGFR MINISTER HELPER Not Available [facility] ([facility]) [address], [place], [address], 08/22/2024 11:08:48 08/05/19 25 08/18/2024 COMP. METAB OLIC PANEL (14) BUN/creatini ne ratio MINISTER HELPER Not Available [facility] ([facility]) [address], [place], [address], 08/22/2024 11:08:48 08/05/19 25 08/18/2024 COMP. METAB OLIC PANEL (14) sodium TNP Test not perfo rmed Not Available [facility] ([facility]) [address], [place], [address], 08/22/2024 11:08:48 08/05/19 25 08/18/2024 COMP. METAB OLIC PANEL (14) potassium TNP Test not perfo rmed Not Available [facility] ([facility]) [address], [place], [address], 08/22/2024 11:08:48 08/05/19 25 08/18/2024 COMP. METAB OLIC PANEL (14) chloride TNP Test not perfo rmed Not Available [facility] ([facility]) [address], [place], [address], 08/22/2024 11:08:48 08/05/19 25 08/18/2024 COMP. METAB OLIC PANEL (14) carbon dioxide, total TNP Test not perfo rmed Not Available [facility] ([facility]) [address], [place], [address], 08/22/2024 11:08:48 08/05/19 25 08/18/2024 COMP. METAB OLIC PANEL (14) calcium TNP Test not perfo rmed Not Available [facility] ([facility]) [address], [place], [address], 08/22/2024 11:08:48 08/05/19 25 08/18/2024 COMP. METAB OLIC PANEL (14) protein, total TNP Test not perfo rmed Not Available [facility] ([facility]) [address] [facility] [place], [address], 08/22/2024 11:08:48 08/05/19 25 08/18/2024 COMP. METAB OLIC PANEL (14) albumin TNP Test not perfo rmed Not Available [facility] ([facility]) [address], [place], [address], 08/22/2024 11:08:48 08/05/19 25 08/18/2024 COMP. METAB OLIC PANEL (14) globulin, total MINISTER HELPER Not Available [facility] ([facility]) [address] [facility], [place], [address], 08/22/2024 11:08:48 08/05/19 25 08/18/2024 COMP. METAB OLIC PANEL (14) A/G ratio MINISTER HELPER Not Available [facility] ([facility]) [address] [facility] [place], [address], 08/22/2024 11:08:48 08/05/19 25 08/18/2024 COMP. METAB OLIC PANEL (14) bilirubin, total TNP Test not perfo rmed Not Available [facility] ([facility]) [address] [facility] [place], [address], 08/22/2024 11:08:48 08/05/19 25 08/18/2024 COMP. METAB OLIC PANEL (14) alkaline phosphatase TNP Test not perfo rmed Not Available [facility] ([facility]) [address] [facility] [place], [address], 08/22/2024 11:08:48 08/05/19 25 08/18/2024 COMP. METAB OLIC PANEL (14) AST (SGOT) TNP Test not perfo rmed Not Available [facility] ([facility]) [address] [facility], [place], [address], 08/22/2024 11:08:48 08/05/19 25 08/18/2024 COMP. METAB OLIC PANEL (14) ALT (SGPT) TNP Test not perfo rmed Not Available [facility] ([facility]) [address] [place], [address], 08/22/2024 11:08:48 08/05/19 25 08/21/2024 PANCR EATIC ELAST ASE, FECAL pancreatic elastase, fecal >800 ug_el ast./ g >200 Sever e Pancr eatic Insuf ficie ncy: <100 Moder ate Pancr eatic Insuf ficie ncy: 100 - 200 Karina l: >200 Not Available [facility] ([facility]) [address] [place], [address], 08/22/2024 11:08:50 08/05/19 25 08/22/2024 CALPR OTECT IN, FECAL calprotectin , fecal 10 ug/g 0-120 Liana ntrat ion Inter preta tion Follo w-Up < 5 - 50 ug/g Karina l None >50 -120 ug/g Borde rline Re-ev aluat e in 4-6 weeks >120 ug/g Abnor mal Repea t as clini rio indic ated Not Available [facility] ([facility]) [address] [place], [address], 08/22/2024 11:08:51 08/05/19 25 08/18/[address] PROBL EM request problem COMMEN T Test not perfo rmed. The requi red speci men for the test order ed was not recei blake. TEST: [id number] Stephanie c Disea se Panel 08921 9 CBC With Diffe renti al/[place] t 608[address] 0 Comp. Metab olic Panel (14) 02862 7 C-Rosalia ctive Prote in, Quant Not Available [facility] ([facility]) [address] [place], [address], 08/22/2024 11:08:52 08/05/19 25 08/19/2024 OVA + JARROD ITE EXAM ova + parasite exam FINAL REPORT These resul ts were obtai nieves using wet prepa ratio n(s) and trich ayaan stain ed smear . This test does not inclu de testi ng for Crypt ospor idium parvu m, Cyclo spora , or Micro spori davey. Not Available [facility] ([facility]) [address] [facility], [place], [address], 08/22/2024 11:08:54 08/05/19 25 08/19/2024 OVA + JARROD ITE EXAM result 1 COMMEN T No ova, cysts , or jarrod ites seen. One negat stanley speci men does not rule out the possi bilit y of a jarrod itic infec tion. Not Available [facility] ([facility]) [address] [facility], [place], [address], 08/22/2024 11:08:54 08/05/19 25 08/18/[address] PROBL EM request problem COMMEN T Test not perfo rmed due to the age of this speci men. TEST: [id number] GI Profi le, Stool , PCR Not Available [facility] ([facility]) [address] [facility], [place], [address], 08/22/2024 11:08:55 08/05/19 25 08/18/2024 PLEAS E NOTE please note Commen t The date recor ded on the requi sitio n indic ates the sampl e(s) recei blake were great er than 72 hours old upon arriv al in our labor atory . Not Available [facility] ([facility]) [address] [facility], [place], [address], 08/22/2024 11:08:57 08/30/19 25 08/17/2024 imagi ng inter preta tion No observ ation record ed. [email or web address] [facility] (Scheduling) [address], [place], [place], [id number], 08/31/2024 08:45:49 08/30/1908/17/2024 US, trans vagin al No observ ation record ed. [email or web address] [facility] (Scheduling) [address], [place], [address], 09/12/2024 16:25:20 08/31/19 25 08/17/2024 CT, abdom en + pelvi s, w/ contr ast No observ ation record ed. KARMEN [facility] (Scheduling) [address], [place], [address], 08/31/2024 08:59:43 Result Notes None recorded. Problems Name Problem SNOMED Code Status Onset Date Resolution Date Notes Provider Name and Address Organization Details Recorded Time Stress 59884069 Active Jillian Urias null, [place] - [facility] - [place] & [place] 2 09:48:50 Essential hypertension 86138748 Active Jillian Uri[place] [facility] [place] 2 09:48:50 Mild anxiety 16654629 Active Jillian Urias null, [place] [facility] [place] 2 09:48:50 Problem Notes None recorded. Procedures Surgical History Date Name Laterality Status Provider Name and Address Organization Details Recorded Time 4 completed Alice [place] [facility] [place] 09/03/2023 10:22:14 4 Most Recent Mammogram completed Shital Maldonadoong [place] [facility] [place] 11/20/2023 11:34:19 3 Date of Last Pap Smear completed Aliceholly Skelton [place] [facility] [place] 09/03/2023 10:22:14 delivery completed Kerry Cuevas [place] [facility] [place] 03/31/2023 15:53:30 Imaging Results None recorded. Procedure Notes None recorded. Medical Equipment None Reported. Allergies No known drug allergies Medications Name Sig Start Date Stop Date Status Note LastModified by Organization Details LastModified Time amoxicillin 500 mg capsule TAKE 1 CAPSULE BY MOUTH TWICE DAILY FOR 7 DAYS 09/03 completed Not Available Not Available Not Available promethazin e-DM 6.25 mg-15 mg/5 mL oral syrup TAKE 5 ML BY MOUTH EVERY 6 HOURS NEEDED FOR COUGH CAUTION SEDATION active Not Available Not Available No t Available azithromyci n 250 mg tablet TAKE 2 TABLETS BY MOUTH ON DAY 1, AND THEN TAKE 1 TABLET BY MOUTH ONCE A DAY ON DAY 2 THROUGH DAY 5 active Not Available Not Available No t Available prednisone 20 mg tablet TAKE 2 TABLETS BY MOUTH ONCE DAILY DIRECTED 06/02 completed Not Available Not Available Not Available atenolol 25 mg tablet TAKE 1 TABLET BY MOUTH ONCE DAILY active Not Available Not Available No t Available Vistaril 25 mg capsule Take 1 {capsule_ as_needed } 3 times a day by oral route. 10/30 completed Not Available Not Available Not Available levofloxaci n 500 mg tablet TAKE 1 TABLET BY MOUTH ONCE DAILY 04/08 completed Not Available Not Available Not Available hydrochloro thiazide 12.5 mg tablet TAKE 1 TABLET BY MOUTH ONCE DAILY IN THE MORNING 10/30 completed Not Available Not Available Not Available BinaxNOW COVID-19 Ag Self Test kit Use as Directed on the Package 10/30 completed Not Available Not Available Not Available Vitals Date Recorded Body height Body mass index (BMI) Body weight Body temperature Oxygen saturation Oxygen saturation in Arterial blood by Pulse oximetry Heart rate Systolic And Diastolic Provider Name and Address Organization Details Last Updated DateTime 5 162.56 cm 24.1 kg/m2 37411.0 1 g 98.8 [degF] 98 % 98 % 71 /min 141/99 mm[Hg] Angie heck [place] [facility] [place] 5 09:14:53 Date Recorded Body height Body mass index (BMI) Body weight Body temperature Oxygen saturation Oxygen saturation in Arterial blood by Pulse oximetry Heart rate Heart rate Systolic And Diastolic Provider Name and Address Organization Details Last Updated DateTime 5 162.56 cm 23.7 kg/m2 61547.8 2 g 97.9 [degF] 99 % 99 % 65 /min 65 /min 135/98 mm[Hg] Ching Copeland [facility] & [place] 5 09:02:17 Date Recorded Body height Body mass index (BMI) Body weight Body temperature Oxygen saturation Oxygen saturation in Arterial blood by Pulse oximetry Heart rate Systolic And Diastolic Provider Name and Address Organization Details Last Updated DateTime 4 162.56 cm 22.8 kg/m2 46295.7 9 g 96.6 [degF] 100 % 100 % 59 /min 118/80 mm[Hg] [facility] & [place] 4 10:24:15 Date Recorded Body height Body mass index (BMI) Body weight Body temperature Oxygen saturation Oxygen saturation in Arterial blood by Pulse oximetry Heart rate Systolic And Diastolic Provider Name and Address Organization Details Last Updated DateTime 4 162.56 cm 23 kg/m2 34134.3 8 g 97.8 [degF] 99 % 99 % 51 /min 120/78 mm[Hg] Alice [facility] & [place] 4 13:24:16 Date Recorded Body height Body mass index (BMI) Body weight Body temperature Oxygen saturation Oxygen saturation in Arterial blood by Pulse oximetry Heart rate Systolic And Diastolic Provider Name and Address Organization Details Last Updated DateTime 4 162.56 cm 23.5 kg/m2 46836.1 5 g 98.2 [degF] 99 % 99 % 45 /min 108/64 mm[Hg] Alice [facility] & [place] 4 13:18:02 Social History Question Answer Notes LastModified by Organizat ion Details LastModified Time Tobacco Smoking Status Never Smoker Jillian Adonay [facility], [facility] & [place] 04/08/2022 09:52:03 Do You Have An Advance Directive? No [email or web address] Information not available 09/03/2023 If You Are , What Was Your Level Of Alcohol Consumption Prior To ? None [email or web address] Information not available 09/03/2023 Are You Blind Or Do You Have Difficulty Seeing? No [email or web address] Information not available 09/03/2023 What Is Your Level Of Caffeine Consumption? None [email or web address] Information not available 09/03/2023 What Was The Date Of Your Most Recent Tobacco Screening? 09/02/2023 [email or web address] Information not available 09/03/2023 Are You Passively Exposed To Smoke? No Information no t available 09/03/2023 How Much Tobacco Do You Smoke? No [email or web address] Information not available 09/03/2023 Has Tobacco Cessation Counseling Been Provided? No [email or web address] Information not available 09/03/2023 How Many Years Have You Smoked Tobacco? 0 [email or web address] Information not available 09/03/2023 Sex: Unknown Functional Status Question Answer Note LastModified by Organizat ion Details LastModified Time Do you use any illicit or recreational drugs? No [email or web address] Information not available 04/08/2022 Do you or have you ever used any other forms of tobacco or nicotine? No [email or web address] Information not available 09/03/2023 What is your level of alcohol consumption? Occasional [email or web address] Information not available 09/03/2023 Do you or have you ever used smokeless tobacco? Never used smokeless tobacco Information not available 09/03/2023 What is your exercise level? Moderate [email or web address] Information not available 09/03/2023 Mental Status Question Answer Note LastModified by Organization D etails LastModified Time Do you feel stressed (tense, restless, nervous, or anxious, or unable to sleep at night)? [id number] [email or web address] Information not available 09/03/2023 Family History Relationship Description Onset Age of this Age Resolved Age Notes LastModified by Organization Details LastModified Time Sister Malignant neoplasm of thyroid gland [email or web address] Not available 2024 08:56:33 Sister Headache pt. added direct ly (06/02) [email or web address] Not available 06/02/2024 12:50:19 Sister Disorder of thyroid gland pt. added direct ly (08/04) [email or web address]-13 Not available 08/04/2024 10:08:34 Father Alive Not available 09/01/2024 08:56:33 Father Myocardial infarction pt. added direct ly (08/04) [email or web address] Not available 08/04/2024 10:07:54 Father Hypertensive disorder pt. added direct ly (08/04) [email or web address] Not available 08/04/2024 10:08:17 Mother Alive Not available 09/01/2024 08:56:33 Mother Autoimmune disease pt. added direct ly (06/02) [email or web address] Not available 06/02/2024 12:50:04 Mother Headache pt. added direct ly (06/02) [email or web address] Not available 06/02/2024 12:50:19 Mother Rheumatoid arthritis pt. added direct ly (08/04) [email or web address] Not available 08/04/2024 10:06:59 Mother Hypertensive disorder pt. added direct ly (08/04) [email or web address] Not available 08/04/2024 10:08:17 Maternal Grandmother Disorder of endocrine system pt. added direct ly (06/02) [email or web address]-13 Not available 06/02/2024 12:50:34 Maternal Uncle Rheumatoid arthritis pt. added direct ly (08/04) [email or web address]-13 Not available 08/04/2024 10:06:59 Maternal Uncle Autoimmune disease pt. added direct ly (08/04) [email or web address]-13 Not available 08/04/2024 10:09:01 Paternal Grandmother Rheumatoid arthritis pt. added direct ly (08/04) [email or web address]-13 Not available 08/04/2024 10:06:59 Brother Headache pt. added direct ly (08/04) [email or web address]-13 Not available 08/04/2024 10:07:28 Brother Hypertensive disorder pt. added direct ly (08/04) [email or web address]-13 Not available 08/04/2024 10:08:17 Paternal Grandfather Hypertensive disorder pt. added direct ly (08/04) [email or web address] Not available 08/04/2024 10:08:17 Medical History Condition Response Headaches Y Back Problems Y Hypertension Y Acne Y Gynecological History Statement/Question Response 09/02/2023 Sexually Active? N Menses Monthly Y Date of Last Pap Smear 04/04/2023 Current Control Method Condoms Most Recent Mammogram 09/02/2023 Obstetrics History GPAL:G 2 P 0 0 0 2 Type Value Living 2 Total 2 Immunizations Vaccine Type Date Status Note Provider Nam e and Address Organization Details Recorded Time COVID-19, mRNA, LNP-S, PF, 30 mcg/0.3 mL dose 10/03/2020 completed Kerry ramirez, [place] [facility] [place] 03/31/2023 14:51:54 COVID-19, mRNA, LNP-S, PF, 30 mcg/0.3 mL dose 10/31/2020 completed Kerry Raedi null, [place] - [facility] & [place] 03/31/2023 14:51:54 Past Encounters Encounter ID Performer Location Encounter Start Date Encounter Closed Date Diagnosis/Indication Diagnosis SNOMED-CT Code Diagnosis ICD10 Code Diagnosis IMO Codes Diagnosis Note [id number] Олег Villarreal MD [address] [place] [address] 04/08/2022 09:36:23 04/08/2022 10:47:21 Palpitations 74941518 R00.2 Essential hypertension 58857750 I10 Anxiety 04486876 F41.9 Acid reflux 191653543 K2 1.9 [id number] Олег Villarreal MD [address] [place] [address] 10/30/2022 13:23:32 10/30/2022 14:29:12 Adult health examination 591733554 Z00.00 Hyperlipid emia screening 668019930 Z13.220 Diabetes m ellitus screening 350529346 Z13.1 Essential hypertension 97743740 I10 Pain in pelvis 01770776 R10.2 check urine, AIT panel Vaginal discharge 711617 006 N89.8 see above, pending f/u with teacher asst. [id number] Олег Villarreal MD [address] [place] [address] 11/25/2022 15:44:31 11/25/2022 16:26:01 Essential hypertension 92094550 I10 continue atenololha d been on HCTZ in the pastrefer to cards for consultpri or EKG WNLA1c lipids WNl in October Family his tory of coronary arteriosclerosis 676015227 Z82.49 Musculoskeletal pain 279 092913 M79.10 rec trial of massage/ch iro [id number] Anthony Pacheco MD [address] [place] [address] 12/12/2022 09:40:12 12/12/2022 11:22:41 Upper respiratory infection 63934172 J06.9 Pain in throat 756066629 R07.0 [id number] Олег Villarreal MD [address] [place] [address] 04/08/2023 13:30:32 04/08/2023 14:43:26 Essential hypertension 63042335 I10 pending echo with cardsstres s not covered by insurance, pt plans to discuss with cards Lower abdominal pain 545 90742 R10.30 suspect psoas syndrome but due to family hx of pancreatic cancer and other malignanci es, we can consider CT if she would like. she will first try stretching and therapy approach and then let me know how she wants to proceed. [id number] Олег Villarreal MD [address] [place] [address] 09/03/2023 10:15:05 09/03/2023 10:53:50 Right lateral elbow tendinopathy 7498445982 11887 M77.11 discussed splinting wrist to avoid activation of affected muscles/te ndons to rest while using voltaren topically and other supportive measures but order for PT and xray given if not improving, patient would also like to try topical compounded cream as well which will be faxed in [id number] Олег Villarreal MD [facility] [address] [place] [address] 12/23/2023 13:16:14 12/23/2023 15:37:50 Adult health examination 628339825 Z00.00 Hyperlipid emia screening 807171064 Z13.220 Diabetes m ellitus screening 204867619 Z13.1 Essential hypertension 57346487 I10 continue atenololdi scussed how she may be able to come off med if she has increase in cardio and monitors pressure, consider 1/2 dose if improving and following pressures Onychomycosis 417816140 B35.1 rx faxed to renetta chaves [id number] Олег Villarreal MD [facility] [address] [place] [address] 06/02/2024 13:13:25 06/02/2024 15:18:51 Abdominal pain 64903964 R10.9 Pain of mu ltiple joints 91361141 M25.50 Hyperlipidemia 88865178 E78.5 [id number] ANGIE FERNANDO NP [facility] [address] [place] [address] 08/05/2024 08:55:46 08/05/2024 10:35:21 Abdominal pain 67461590 R10.9 Labs today.Cyril mmend she schedule abdominal CT as previously ordered by Dr. Villarreal. Abdominal bloating 73810 9008 R14.0 Excessive flatus 2761528 7 R14.3 Excessive belching 41061 7000 R14.2 Loose stool 112317312 R1 9.5 Stool studies recommende d. [id number] ANGIE FERNANDO NP [facility] [address] [place] [address] 09/01/2024 08:53:28 09/01/2024 09:31:54 Abdominal pain 85862949 R10.9 Improving. CBC, CMP, CRP unremarkab le. Negative celiac panel. Loose stool 386108590 R1 9.5 Stool studies findings - normal fecal calprotect in, pancreatic elastase, and O&P. GI panel and H. pylori did not result due to age of specimen. With improvemen t in stool consistenc y we will hold off on repeat for now. Recommend metamucil consistent ly, increased water intake. Start OTC probiotic with billion cell count. Lesion of liver 88673731 0 K76.9 4 mm hypodense lesion in the liver. Due to size, lack of symptoms, and low risk factors no follow up imaging is recommende d at this time. Consider repeat imaging in 6 months to follow up on size. Health Concerns Section Related Observation LastModified by Organization Detai ls LastModified Time None Recorded Concern Status LastModified by Organization Details LastModified Time None Recorded Advance Directives Directive N: Payers Insurance Date Sequence Insurance Name Policy Number Policy Majano Covered Member ID Majano Member ID Guarantor Name 08/29/2024 1 [place] [employer] - PATH[employer]AY X (HMO) [id number] Renée Green [id number] Renée Green 08/05/2024 1 [employer] HIX[place] Renée Green [id number] Renée Green Notes Date Note Type Note Provider Name and Address Organization Details Recorded Time 09/03/2023 text/html ROS as noted in the HPI SHe is here for right elbow pain.She had moved in April and again a couple months later. She has been working on her arm and used an auger. She did feel the pain at that time and it has intermittently persisted. 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 She has the most pain in the morning and with gripping and lifting. She has family hx of RA in her mother and uncle. Олег Villarreal MD [address] [facility], [place], [address], [place] [facility] [place] 09/03/2023 12:54:16 12/23/2023 text/html ROS as noted in the HPI Patient is here for yearly check up and follow up.Last dental visit: 10+ years ago, doesn't have dental insurance.Last eye exam: s/p lasik, has had visit in the past two years Tdap vaccine: due for vaccineFlu vaccine: intermittent seasonallyCovid vaccine: 2 doses completed mammogram: 2022 WNL, will obtain record, ordered by gynColon cancer screening: family on her father's side of the family, a paternal uncle is affected.Dexa: not yet due for testingPap smear: follows with teacher asst in [place], 2022 WNL HLP screening: due for screeningDM Screening:due for screeningHTN screening: see below Diet: feels that her diet is healthy and well balanced, feels that she is getting fruits and vegetables.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 HTN: pt had seen cardiology in the past for this. Pressure has improved and has done well on this. She would like to see about coming off this in the future. She has been having issues with persistent nail fungus and would like to try treatment. We had previously discussed oral but she is open to trial of topical. Олег Villarreal MD [address], [place], [address], [facility] & [place] 12/23/2023 14:23:14 06/02/2024 text/html ROS as noted in the HPI 44-year-old female patient is here for a few concerns.SHe is here for anterior hip pain, usually it is on the left but has occasionally been on the right. It is a stabbing pain acutely then aches for a brief period. She has no clear triggers. Prior episodes may be potentially secondary to being seated for longer period of time.She notes that there is no change with bowel movements, blood in stool.Family history is notable for history of pancreatitis in her father who has recently . She also has family history of RA in her mother. She has been having pain in neck, wrists, knees, ankles, elbow, knuckles. She has had normal sed rate and crp in the past. She is worsening stiffness in the morning and during cold weather. She does feel that she has swelling at times especially in her knuckles. Her cholesterol was noted to be elevated on labs earlier in the year and is due for follow-up testing to assess for improvement with some dietary changes. Олег Villarreal MD [address], [place], [address], [facility] & [place] 06/02/2024 17:28:41 08/05/2024 text/html Renée Green is a 44 yr old female here today by referral for abdominal pain.During the Covid-19 pandemic she moved from [place] to [place]. Stress was increased during this time. She developed palpitations and hypertension. She was started on Atenolol for management. Cardiology work up showed normal echo and EKG. Stress test not performed due to expense. One year following is when GI issues began. She reports intermittent lower abdominal pain, mostly in the right quadrant. Pain is described as sharp and occurs typically around her menstrual cycle. She reports sour stomach in the morning associated with excessive flatus and belching, as well as urinary frequency. She was concerned that symptoms were associated with atenolol, so she cut the dose in half. It has seemed to help some. 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 In May [address]CP ordered a CT abdomen to further evaluate abdominal pain. This has not yet been completed. CBC, CMP, ESR, CRP, lipase, and urinalysis normal. Her bowels move daily after coffee. Stool is loose, evacuation complete. No blood in stool. Her father from pancreatic cancer at age 71. Her maternal grandmother and maternal great uncle also of pancreatic cancer. ANGIE FERNANDO, MAKSIM [address] [facility], [place], [address], [place] [facility] [place] & [place] 08/08/2024 15:01:32 09/01/2024 text/html PREVIOUS: Renée Green is a 44 yr old female here today by referral for abdominal pain.During the Covid-19 pandemic she moved from [place] to [place]. Stress was increased during this time. She developed palpitations and hypertension. She was started on Atenolol for management. Cardiology work up showed normal echo and EKG. Stress test not performed due to expense. One year following is when GI issues began. She reports intermittent lower abdominal pain, mostly in the right quadrant. Pain is described as sharp and occurs typically around her menstrual cycle. She reports sour stomach in the morning associated with excessive flatus and belching, as well as urinary frequency. She was concerned that symptoms were associated with atenolol, so she cut the dose in half. It has seemed to help some. 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 In May [address] her PCP ordered a CT abdomen to further evaluate abdominal pain. This has not yet been completed. CBC, CMP, ESR, CRP, lipase, and urinalysis normal. Her bowels move daily after coffee. Stool is loose, evacuation complete. No blood in stool. Her father from pancreatic cancer at age 71. Her maternal grandmother and maternal great uncle also of pancreatic cancer. CURRENT: Renée Green is a 44 yr old female here today for follow up.Today we discussed findings of labs, stool, and imaging. She states that episodes of sharp abdominal pain have subsided. She has occasional aches, but nothing like before. She was given an antibiotic last week for a secondary infection to the flu. Her stool was loose due to this, but prior to that the consistency had improved. She says at first it's formed/soft then loose to follow. She was doing 1 scoop Metamucil daily, but has not been consistent recently. She gets around 60 oz water daily. ANGIE FERNANDO, MINISTER HELPER [address], [place], [address], [facility] - [place] - [place] & [place] 09/01/2024 09:43:14 OBGyn Episode No OBEpisode recorded.
--- OUTSIDE RECORDS SUMMARY | 2025-04-20 10:48 | XMS_ITS | Patient Health Record ---
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 Yes Drugs/Alcohol: Social Info Question Answer Notes Drugs Have you used drugs other than those for medical reasons in the past 12 months? No Alcohol Screen Did you have a drink containing alcohol in the past year? Yes Points 0 Interpretation Negative Tobacco Use: Social Info Question Answer Notes Tobacco Use/Smoking Are you a former smoker Tobacco use other than smoking: Are you an other tobac co user? No Problems Problem Type SNOMED Code ICD Code Onset Dates Problem Status W/U Status Risk Notes Problem Contraception care education (917325226) Advised about oral contraception (Z30.09) 010 Active confirmed CONTRACEPTIVE MANAGEMENT Plan Of Treatment No Information Medical (General) History Medical History History ICD Code SOCIAL HX: denies SOCIAL HX: denies denies MICRONOR 0.35 MG TABS (NORETHINDRONE (CO NTRACEPTIVE)) Surgical History Surgery Date(Month/Year) c/s 02/26
--- OUTSIDE RECORDS SUMMARY | 2025-04-20 10:48 | XMS_ITS | Encounter Summary ---
Author Organization Healthcare Address [address] [place] [address] Care Team Providers Care Folder Machine Name Role Phone Shyanne Castro APRN Primary Care Provider [phone] Deb Devine Unavailable Unavailabl e Encounter Details Date Type Department Care Team (Late st Contact Info) Description 09/07/2024 Outside Procedure External Location [address] [place] [address] Provider, Caden False Pass Social History Tobacco Use Types Packs/Day Years Used Date Smoking Tobacco: Never Passive Smoke Exposure: Never Smokeless Tobacco: Never Humiliation, Afraid, Rape, and Kick questionnair e Answer Date Recorded Within the last year, have y ou been afraid of your partner or ex-partner? No 09/07/2024 Within the last year, have y ou been humiliated or emotionally abused in other ways by your partner or ex-partner? No Within the last year, have y ou been kicked, hit, slapped, or otherwise physically hurt by your partner or ex-partner? No 09/07/2024 Within the last year, have y ou been raped or forced to have any kind of sexual activity by your partner or ex-partner? No 09/07/2024 Overall Financial Resource Strain (CARDIA) Answe r Date Recorded How hard is it for you to pa y for the very basics like food, housing, medical care, and heating? Not hard at all 09/07/2024 PHQ-2 Answer Date Recorded Patient Health Questionnaire-2 Score 0 09/07/2024 Hunger Vital Sign Answer Date Recorded Within the past 12 months, y ou worried that your food would run out before you got the money to buy more. Never true 09/07/19 25 Within the past 12 months, t he food you bought just didn't last and you didn't have money to get more. Never true 09/07/2024 PRAPARE - Transportation Answer Date Re corded In the past 12 months, has l ack of transportation kept you from medical appointments or from getting medications? No 08/20 In the past 12 months, has l ack of transportation kept you from meetings, work, or from getting things needed for daily living? No 09/07/2024 PHQ-9 Answer Date Recorded Patient Health Questionnaire-9 Score 0 09/07/2024 Housing Stability Vital Sign Answer Bruce e Recorded In the last 12 months, was t here a time when you were not able to pay the mortgage or rent on time? No 09/07/2024 In the past 12 months, how m any times have you moved where you were living? 0 09/07/2024 At any time in the past 12 m [facility], were you homeless or living in a snf (including now)? No 09/07/2024 Utilities Answer Date Recorded In the past 12 months has th e electric, gas, oil, or water company threatened to shut off services in your home? No 09/07/2024 Comments Unknown Sex and Gender Information Value Date Recorded Sex Assigned at Female 08/25/2024 9:24 AM EST Legal Sex Female 6:55 PM EDT Gender Identity Not on file Sexual Orientation Not on file documented as of this encounter Functional Status * Over the past 2 weeks, how often have you been bothered by any of the following problems? Question Answer Date of Assessment Author Little interest or pleasure in doing things Not at all 09/07/2024 9:33 AM Argenis Kang Feeling down, depressed, or hopeless Not at all 09/07/2024 9:33 AM Argenis Kang Patient Health Questionnaire -2 Score 0 09/07/2024 9:33 AM Argenis Kang * Question Answer Date of Assessment Author Trouble falling or staying a sleep, or sleeping too much Not at all 09/07/2024 9:33 AM Argenis Kang Feeling tired or having janell le energy Not at all 09/07/2024 9:33 AM Argenis Kang Poor appetite or overeating Not at all 09/07/2024 9: 33 AM Argenis Kang Feeling bad about yourself - or that you are a failure or have let yourself or your family down Not at all 09/07/2024 9:33 AM Argenis Kang Trouble concentrating on thi ngs, such as reading the newspaper or watching television Not at all 09/07/2024 9:33 AM Argenis Kang Moving or speaking so slowly that other people could have noticed? Or the opposite - being so fidgety or restless that you have been moving around a lot more than usual. Not at all 09/07/2024 9:33 AM Argenis Kang Thoughts that you would be b pete off or hurting yourself in some way Not at all 09/07/2024 9:33 AM Argenis Kang Patient Health Questionnaire -9 Score 0 09/07/2024 9:33 AM Argenis Kang * Calculated C-SSRS Risk Score (Lifetime/Recent) Answer Date of Assessment Author No Risk Indicated 09/07/2024 9:33 AM Argenis Kang * How difficult have these problems made it for you to do your work, take care of things at home, or get along with other people? Answer Date of Assessment Author Not difficult at all 09/07/2024 9:33 AM Argenis Sanders * Question Answer Date of Assessment Author 1. Wish to be (Past 1 Month) No 025 9:33 AM Argenis Kang 2. Non-Specific Active Suici minda Thoughts (Past 1 Month) No 09/07/2024 9:33 AM Dixon Kang 6. Suicidal Behavior (Lifetime) No 9:33 AM Argenis Kang documented as of this encounter Plan of Treatment Not on file documented as of this encounter Procedures Procedure Name Priority Date/Time Associated Diagnosis Comments MAMMOGRAPHY BREAST SCREENING TOMOSYNTHESIS BILATERAL 09/07/2024 11:03 AM EST documented in this encounter Results * Mammography Breast Screening Tomosynthesis Bilateral (09/07/2024 11:03 AM EST) Anatomical Region Laterality Modality Breast Bilateral Mammography 09/07/2024 11:0 3 AM EST Narrative 09/07/2024 11:51 AM EST [address] [address] Name: COLE GREEN Exam Date: 09/07/2024 : 1980 Age 44 years Gender: F Physician: GARIMA DAVIS Facility: [facility] Facility HSV: Outpatient Exam: JAZMINE SCRN MAMMO W/CAD BILAT Exam: 3-D screening mammography including tomosynthesis and CAD (Computer Assisted Detection). Clinical indication: Asymptomatic screening exam Comparison: Exams to 2021 TECHNIQUE: Routine bilateral 2D screening mammogram with CC and MLO views obtained. 3-D tomosynthesis and Computer assisted detection were utilized for this exam. BREAST DENSITY: The breasts are heterogeneously dense, which may obscure small masses FINDINGS: No suspicious mass, architectural distortion, or suspicious calcifications are present. IMPRESSION: No evidence of malignancy in either breast Recommendation: Annual screening mammography recommended in one year The results of this report will be communicated to the patient by letter in layman's terms. ACR BI-RADS: BI-RADS assessment category 1: Negative mammogram Mammography does not detect approximately 10-15% of breast cancers. A normal mammogram does not exclude breast cancer in a patient with palpable mass or abnormal findings on physical examination. These patients may need biopsies and when clinically indicated a biopsy should not be postponed because of a normal mammogram. If the patient has breast surgery or biopsy, FDA/SA Regulatory Guidelines mandate that this facility receive pathologic results for follow-up correlation. Electronically signed by: Galo Mendiola MD 09/07/2024 11:46 AM EST Dictated By: Galo Mendiola Transcribed By: Transcribed On: 09/07/2024 11:43 AM Electronically signed by: Galo Mendiola 09/07/2024 Thank you for referring COLE GREEN to [facility]. Legally authenticated by BRENDA DAVILA 2024-09-07 11:43:54 Procedure Note Provider, Caden False Pass - 09/07/2024 [id number] [place] [address] Name: COLE GREEN Exam Date: 09/07/2024 : 1980 Age 44 years Gender: F Physician: GARIMA DAVIS Facility: [facility] Facility HSV: Outpatient Exam: JAZMINE SCRN MAMMO W/CAD BILAT Exam: 3-D screening mammography including tomosynthesis and CAD(Computer Assisted Detection). Clinical indication: Asymptomatic screening exam Comparison: Exams to 2021 TECHNIQUE: Routine bilateral 2D screening mammogram with CC and MLOviews obtained. 3-D tomosynthesis and Computer assisted detection were utilizedfor this exam. BREAST DENSITY: The breasts are heterogeneously dense, which may obscuresmall masses FINDINGS: No suspicious mass, architectural distortion, or suspicious calcifications are present. IMPRESSION: No evidence of malignancy in either breast Recommendation: Annual screening mammography recommended in one year The results of this report will be communicated to the patient by letterin layman's terms. ACR BI-RADS: BI-RADS assessment category 1: Negative mammogram Mammography does not detect approximately 10-15% of breast cancers. Anormal mammogram does not exclude breast cancer in a patient with palpable massor abnormal findings on physical examination. These patients may needbiopsies and when clinically indicated a biopsy should not be postponed because ofa normal mammogram. If the patient has breast surgery or biopsy, FDA/SA Regulatory Guidelines mandate that this facility receive pathologicresults for follow-up correlation. Electronically signed by: Galo Mendiola MD 09/07/2024 11:46 AM [facility] Dictated By: Galo Mendiola Transcribed By: Transcribed On: 09/07/2024 11:43 AM Electronically signed by: Galo Mendiola 09/07/2024 Thank you for referring COLE GREEN to [facility]. Legally authenticated by BRENDA DAVILA 2024-09-07 11:43:54 Generic False Pass Provider IMG BI PROCEDURES Fi nal Result documented in this encounter Visit Diagnoses Not on filedocumented in this encounter Additional Health Concerns Assessment Noted Time PHQ-9 Depression Total Score: 0 09/07/19 9:33 AM EST A Body Mass Index follow-up plan has been documented for the patient 09/07/2024 12:05 PM EST documented as of this encounter Care Teams Folder Machine Relationship Specialty Start Date End Date Shyanne Castro APRN [address] [place] [address] PCP - General Family Medicine 09/07/24 Deb Devine Clinical Surgical Lead 09/07/24 10/11/24 documented as of this encounter
--- OUTSIDE RECORDS SUMMARY | 2025-04-20 10:48 | XMS_ITS | Clinical Summary ---
Author Organization Healthcare Address [address] [place] [address] Care Team Providers Care Executive Vice President Of Sales Name Role Phone Shynane Castro Kenyon SHAH Primary Care Provider [phone] Allergies No known active allergies Medications lisinopril 5 MG tabletIndications :Essential (primary) hypertension Take 1 tablet (5 mg) by mouth daily. 90 tablet 1 5 Active methylPREDNISolon e (Medrol Dospak) 4 MG tabletsIndication s:Acute upper respiratory infection, unspecified Take as directed on package. 21 tablet 5 Active Active Problems No known active problems Family History Medical History Relation Name Comments Coronary artery disease Father Hypertension, benign Father Pancreatic cancer Father Pancreatic cancer Maternal Grandmother Diverticulitis Mother Thyroid cancer Sister Relation Name Status Comments Father Maternal Grandmother Mother Sister Social History Tobacco Use Types Packs/Day Years Used Date Smoking Tobacco: Never Passive Smoke Exposure: Never Smokeless Tobacco: Never Tobacco Cessation:Counseling Given: Not Answered Humiliation, Afraid, Rape, and Kick questionnair e [...] any time in the past 12 m [facility], were you homeless or living in a senior living (including now)? No 09/07/2024 Utilities Answer Date Recorded In the past 12 months has th e [employer], gas, oil, or water company threatened to shut off services in your home? No 09/07/2024 Comments Unknown Sex and Gender Information Value Date Recorded Sex Assigned at Female 08/25/2024 9:24 AM EST Legal Sex Female 6:55 PM EDT Gender Identity Not on file Sexual Orientation Not on file Last Filed Vital Signs Vital Sign Reading Time Taken Comments Blood Pressure 130/84 09/07/2024 9:29 AM EST Pulse 75 09/07/2024 9:29 AM EST Temperature - - Respiratory Rate 18 09/07/2024 9:29 AM EST Oxygen Saturation 98% 09/07/2024 9:29 AM EST Inhaled Oxygen Concentration - - Weight 74.7 kg (164 lb 10.9 oz) 09/07/2024 9:29 AM EST Height 162.6 cm (5' 4 ) 09/07/2024 9:29 AM EST Body Mass Index 28.27 09/07/2024 9:29 AM EST Plan of Treatment Health Maintenance Due Date Last Done Comments [facility]-HIV Screening 1980 [facility]-Hepatitis C Screening 1980 [facility]-Infant/Child/Adol SDOH Screenings 1980 [facility]-Varicella Vaccines (1 of 2 - 13+ 2-dose series) 1994 [facility]-DTaP,Tdap,and Td Vaccine s (1 - Tdap) 02/07/2000 [facility]-Hepatitis B Vaccines (1 of 3 - 19+ 3-dose series) 02/07/2000 HPV Vaccines (1 - 3-dose SCD M series) 02/07/2008 [facility]-HPV/Cotest 2011 [facility]-Cervical Cancer Screening 09/03/2024 [facility]-Pap Smear 09/03/2024 09/03/2021, 09/03/2021 [facility]- SDOH Screenings 03/07/2025 [facility]-Adult SDOH Screenings 03/07/2025 09/07/2024 [id number] Vaccine ( season) 2025 10/31/2020, 10/03/2020 [facility]-Influenza Vaccine (#1) 2025 [facility]-Depression Screening 09/07/2025 025, 09/07/2024 [facility]-Zoster Vaccines (1 of 2) 2031 [facility]-Obesity Intervention Completed 025, 09/07/2024, 09/07/2024 [facility]-HIB Vaccines Aged Out No longer e ligible based on patient's age to complete this topic [facility]-Hepatitis A Vaccines Aged Out No longer eligible based on patient's age to complete this topic [facility]-IPV Vaccines Aged Out No longer e ligible based on patient's age to complete this topic [facility]-Pneumococcal Vaccine: Pediatrics (0 to 5 Years) and At-Risk Patients (6 to 49 Years) Aged Out No longer eligible b ased on patient's age to complete this topic [facility]-Rotavirus Vaccines Aged Out No lo nger eligible based on patient's age to complete this topic Procedures Procedure Name Priority Date/Time Associated Diagnosis Comments PAP SMEAR EXTERNAL RESULT 09/03/2021 from Last 3 Months or Most Recently Relevant to Health Maintenance Results * Pap Smear External Result (09/03/2021) Narrative 09/03/2021 Ordered by an unspecified provider. External Provider LAB CYTOLOGY ORDERABLES Final Result from Last 3 Months or Most Recently Relevant to Health Maintenance Insurance DAVID Care Teams Executive Vice President Of Sales Relationship Specialty Start Date End Date Shyanne Castro APRN [address] [place] [address] PCP - General Family Medicine 09/07/24
[2025-04-21 16:29] LABS: Deamidated Gliadin Abs, IgA 20 units (0-19); Deamidated Gliadin Abs, IgG 2 units (0-19)
[2025-04-25 18:01] LABS: Saccharomyces cerevisiae, IgA <20.0 Units (0.0-24.9); Saccharomyces cerevisiae, IgG <20.0 Units (0.0-24.9)
== END 2025-04-19 23:59 | disposition home or self-care (01) ==
LOC: LAB.DROPOF 04-20 10:40
PROVIDERS: PCP Nurse Practitioner Family; Visit Provider Nurse Practitioner Family
DX: R14.0 Abdominal distension (gaseous) (principal); Z11.59 Encounter for screening for other viral diseases; Z11.4 Encounter for screening for human immunodeficiency virus [HIV]; E11.9 Type 2 diabetes mellitus without complications; R10.11 Right upper quadrant pain; I10 Essential (primary) hypertension; Z13.220 Encounter for screening for lipoid disorders; Z13.21 Encounter for screening for nutritional disorder; R53.83 Other fatigue; Z13.29 Encounter for screening for other suspected endocrine disorder; Z80.0 Family history of malignant neoplasm of digestive organs; Z80.8 Family history of malignant neoplasm of other organs or systems; R41.3 Other amnesia; G47.33 Obstructive sleep apnea (adult) (pediatric)
CPT/HCPCS: 80053; 80061; 81001; 82306; 82607; 82728; 83036; 83540; 83550; 84156; 84439; 84443; 85025; 86231; 86258; 86364; 86671; 86803; 87086; 87389

== ENCOUNTER 2025-05-24 11:59 | Outpatient (CLI) | payer OTHER, SELFPAY ==
--- NOTE | 2025-05-24 12:03 | XR_ITS ---
FINAL REPORT CLINICAL HISTORY: Assessment of fecal burden COMPARISON: None FINDINGS: A single supine view of the abdomen was obtained. There is no prior for comparison. The bowel gas pattern is nonspecific and nonobstructive. There is a normal amount of stool in the colon. There are no pathologic calcifications. Osseous structures are within normal limits. IMPRESSION: No acute intraabdominal abnormality. Normal stool burden. Reviewed, Interpreted and Dictated by Lakeshia Zuleta MD Transcribed by Chen Lilly Authenticated and [facility]
--- OUTSIDE RECORDS SUMMARY | 2025-05-24 12:18 | XMS_ITS | Clinical Summary ---
Author Organization Healthcare Address [address] [place] [address] Care Team Providers Care Stucco Laborer Name Role Phone Shyanne Castro Kenyon SHAH Primary Care Provider [phone] Allergies No known active allergies Medications lisinopril [...] any time in the past 12 m [facility], were you homeless or living in a usp (including now)? No 09/07/2024 Utilities Answer Date Recorded In the past 12 months has th e [employer], gas, oil, or water company threatened to [...] Screenings 03/07/2025 [facility]-Adult SDOH Screenings 03/07/2025 09/07/2024 [id number] Vaccine ( season) 2025 10/31/2020, 10/03/2020 [facility]-Influenza [...] to Health Maintenance Insurance DAVID Care Teams Stucco Laborer Relationship Specialty Start Date End Date Shyanne Castro APRN [address] [place] [address] PCP - General Family Medicine 09/07/24
--- OUTSIDE RECORDS SUMMARY | 2025-05-24 12:18 | XMS_ITS | Clinical Summary ---
Author Organization [facility] Address [address] [place] [address] Care Team Providers Care Case Assembler Name Role Phone Gladis Villarreal MD Primary Care Provider [phone] Allergies No known active allergies Medications atenolol [...] patient's age to complete this topic Insurance [facility] Care Teams Case Assembler Relationship Specialty Start Date End Date Gladis Villarreal MD PCP - General Family Medicine 02/16/23
--- OUTSIDE RECORDS SUMMARY | 2025-05-24 12:18 | XMS_ITS | Data Portability ---
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 [email or web address] Not available 08/08/2024 14:52:23 09/01/2024 09/01/2024 CT findings 08/17 found a 4 mm hypodense lesion on the liver as well as a nodule in the lung. PCP is following up with chest CT. No acute intra-abdominal abnormalities or specific etiology to account for lower abdominal pain. [email or web address] Not available 09/01/2024 09:36:21 Plan of Treatment Reminders Order Date Submit Date Provider Last Modified By Organization Details Last Modified Time Details Appointments None recorded. Lab celiac disease serology panel, serum 2024 025 [facility] ([facility], [address] [facility], [place], [address], 16:10:15 CBC w/ auto diff 2024 025 [facility] ([facility], [address] [place], [address], 5 16:10:16 CMP, serum or plasma [address] [facility] ([facility]), [address] [place], [address], 5 16:10:17 C reactive protein, QN, serum or plasma [address] [facility] ([facility]), [address] [place], [address], 5 16:10:19 gastrointes tinal pathogens DNA + RNA panel, LUDY+non-pro be, stool [address] [facility] ([place]), [address] [place], [address], 5 11:08:46 calprotecti n, stool [address] [facility] ([place]), [address] [place], [address], 5 11:08:51 pancreatic elastase, quant, stool [address] [facility] ([place]), [address] [place], [address], 5 11:08:50 O&P (ova & parasites), stool [address] [facility] ([place]), [address] [place], [address], 5 11:08:54 H pylori Ag, qual immunoassay , stool [email or web address] ([place]), [address] [place], [address], 5 11:47:02 CMP, serum or plasma 11/2023 [facility] [address] [facility], [place], [address], 4 14:15:29 CBC w/ auto diff [address] [facility] ([place]), [address] [facility], [place], [address], 4 14:15:27 lipase, serum or plasma 2023 024 [facility] [address] [facility], [place], [address], 4 14:15:34 urinalysis, dipstick 2023 ana [facility], [address], [place], [address], 4 14:19:03 ESR (erythrocyt e sedimentati on rate), blood [address] [facility] ([place]), [address] [facility], [place], [address], 4 14:15:33 C reactive protein, QN, serum or plasma [address] [facility] ([place]), [address] [facility], [place], [address], 4 14:15:35 rf (rheumatoid factor) + anti-ccp abs, serum [address] [facility] ([place]), [address] [place], [address], 4 14:15:31 lipid panel, serum [address] [facility] ([place]), [address] [place], [address], 4 14:15:30 lipid panel, serum 06/05/ 2024 06/05/2 024 [facility], [address], [address], [place], [address], 4 06:19:28 HbA1c (hemoglobin A1c), blood 2023 024 [facility], [address], [address], [place], [address], 4 06:19:29 CBC w/ auto diff 2023 024 [facility], [address], [address], [place], [address], 4 06:19:26 CMP, serum or plasma 2023 024 [facility], [address], [address], [place], [address], 4 06:19:27 Referral None recorded. Procedures None recorded. Surgeries None recorded. Imaging CT, abdomen + pelvis, w/ contrast 2023 024 [facility], [address], [address], [place], [address], 5 08:43:49 XR, elbow, 3 or more view 2023 024 [email or web address] [facility] ([facility]), [address], [place], [address], 4 17:16:44 Medication Orders atenolol 25 mg tablet 2023 024 [facility], [address] [place], [address], 4 14:19:27 Patient TargetsNo targets recorded. Patient Instructions Encounter Date Encounter Id Patient Instructions Last Modified By Organization Details Last Modified Time 09/01/2024 [id number] Follow up in 2 months or sooner if needed. [email or web address] Not available 09/01/2024 09:41:29 Reason for Referral None Reported. Results Created Date Observation Date Name Description Value Unit Range Abnormal Flag Note LastModifiedBy Organization Detail LastModifiedTime 12/23/19 24 12/24/2023 CBC WITH DIFFE RENTI AL/PL ATELE T WBC 7.0 x10e3 /uL 3.4-10 .8 Not Available [facility] ([facility]) [address] [facility], [place], [address], 12/24/2023 06:19:26 12/23/19 24 12/24/2023 CBC WITH DIFFE RENTI AL/PL ATELE T RBC 4.18 x10e6 /uL 3.77-5 .28 Not Available [facility] ([facility]) [address] [place], [address], 12/24/2023 06:19:26 12/23/19 24 12/24/2023 CBC WITH DIFFE RENTI AL/PL ATELE T hemoglobin 13.1 g/dL 11.1-1 5.9 Not Available [facility] ([facility]) [address] [facility], [place], [address], 12/24/2023 06:19:26 12/23/19 24 12/24/2023 CBC WITH DIFFE RENTI AL/PL ATELE T hematocrit 39.2 % 34.0-4 6.6 Not Available [facility] ([facility]) [address] [facility], [place], [address], 12/24/2023 06:19:26 12/23/19 24 12/24/2023 CBC WITH DIFFE RENTI AL/PL ATELE T MCV 94 fL 79-97 Not Available [facility] ([facility]) [address] [facility], [place], [address], 12/24/2023 06:19:26 12/23/19 24 12/24/2023 CBC WITH DIFFE RENTI AL/PL ATELE T MCH 31.3 pg 26.6-3 3.0 Not Available [facility] ([facility]) [address] [facility], [place], [address], 12/24/2023 06:19:26 12/23/19 24 12/24/2023 CBC WITH DIFFE RENTI AL/PL ATELE T MCHC 33.4 g/dL 31.5-3 5.7 Not Available [facility] ([facility]) [address] [facility], [place], [address], 12/24/2023 06:19:26 12/23/19 24 12/24/2023 CBC WITH DIFFE RENTI AL/PL ATELE T RDW 12.0 % 11.7-1 5.4 Not Available [facility] ([facility]) [address] [facility], [place], [address], 12/24/2023 06:19:26 12/23/19 24 12/24/2023 CBC WITH DIFFE RENTI AL/PL ATELE T platelets 418 x10e3 /uL 150-45 0 Not Available [facility] ([facility]) [address] [facility], [place], [address], 12/24/2023 06:19:26 12/23/19 24 12/24/2023 CBC WITH DIFFE RENTI AL/PL ATELE T neutrophils 57 % not estab. Not Available [facility] ([facility]) [address] [facility], [place], [address], 12/24/2023 06:19:26 12/23/19 24 12/24/2023 CBC WITH DIFFE RENTI AL/PL ATELE T lymphs 34 % not estab. Not Available [facility] ([facility]) [address] [facility], [place], [address], 12/24/2023 06:19:26 12/23/19 24 12/24/2023 CBC WITH DIFFE RENTI AL/PL ATELE T monocytes 8 % not estab. Not Available [facility] ([facility]) [address] [facility], [place], [address], 12/24/2023 06:19:26 12/23/19 24 12/24/2023 CBC WITH DIFFE RENTI AL/PL ATELE T eos 1 % not estab. Not Available [facility] ([facility]) [address] [place], [address], 12/24/2023 06:19:26 12/23/19 24 12/24/2023 CBC WITH DIFFE RENTI AL/PL ATELE T basos 0 % not estab. Not Available [facility] ([facility]) [address] [facility], [place], [address], 12/24/2023 06:19:26 12/23/19 24 12/24/2023 CBC WITH DIFFE RENTI AL/PL ATELE T immature cells SPECIFICATION WRITER Not Available [facility] ([facility]) [address] [place], [address], 12/24/2023 06:19:26 12/23/19 24 12/24/2023 CBC WITH DIFFE RENTI AL/PL ATELE T neutrophils (absolute) 4.0 x10e3 /uL 1.4-7. 0 Not Available [facility] ([facility]) [address] [place], [address], 12/24/2023 06:19:26 12/23/19 24 12/24/2023 CBC WITH DIFFE RENTI AL/PL ATELE T lymphs (absolute) 2.4 x10e3 /uL 0.7-3. 1 Not Available [facility] ([facility]) [address] [place], [address], 12/24/2023 06:19:26 12/23/19 24 12/24/2023 CBC WITH DIFFE RENTI AL/PL ATELE T monocytes(ab solute) 0.6 x10e3 /uL 0.1-0. 9 Not Available [facility] ([facility]) [address] [facility], [place], [address], 12/24/2023 06:19:26 12/23/19 24 12/24/2023 CBC WITH DIFFE RENTI AL/PL ATELE T eos (absolute) 0.1 x10e3 /uL 0.0-0. 4 Not Available [facility] ([facility]) [address] [facility], [place], [address], 12/24/2023 06:19:26 12/23/19 24 12/24/2023 CBC WITH DIFFE RENTI AL/PL ATELE T baso (absolute) 0.0 x10e3 /uL 0.0-0. 2 Not Available [facility] ([facility]) [address] [facility], [place], [address], 12/24/2023 06:19:26 12/23/19 24 12/24/2023 CBC WITH DIFFE RENTI AL/PL ATELE T immature granulocytes 0 % not estab. Not Available [facility] ([facility]) [address] [facility], [place], [address], 12/24/2023 06:19:26 12/23/19 24 12/24/2023 CBC WITH DIFFE RENTI AL/PL ATELE T immature grans (abs) 0.0 x10e3 /uL 0.0-0. 1 Not Available [facility] ([facility]) [address] [facility], [place], [address], 12/24/2023 06:19:26 12/23/19 24 12/24/2023 CBC WITH DIFFE RENTI AL/PL ATELE T NRBC SPECIFICATION WRITER Not Available [facility] ([facility]) [address] [facility], [place], [address], 12/24/2023 06:19:26 12/23/19 24 12/24/2023 CBC WITH DIFFE RENTI AL/PL ATELE T hematology comments: SPECIFICATION WRITER Not Available [facility] ([facility]) [address] [facility], [place], [address], 12/24/2023 06:19:26 12/23/19 24 12/24/2023 COMP. METAB OLIC PANEL (14) glucose 80 mg/dL 70-99 Not Available [facility] ([facility]) [address] [facility] [place], [address], 12/24/2023 06:19:27 12/23/19 24 12/24/2023 COMP. METAB OLIC PANEL (14) BUN 10 mg/dL 6-24 Not Available [facility] ([facility]) [address] [facility] [place], [address], 12/24/2023 06:19:27 12/23/19 24 12/24/2023 COMP. METAB OLIC PANEL (14) creatinine 0.73 mg/dL 0.57-1 .00 Not Available [facility] ([facility]) [address] [facility] [place], [address], 12/24/2023 06:19:27 12/23/19 24 12/24/2023 COMP. METAB OLIC PANEL (14) eGFR 105 mL/mi n/1.7 3 >59 Not Available [facility] ([facility]) [address] [facility] [place], [address], 12/24/2023 06:19:27 12/23/19 24 12/24/2023 COMP. METAB OLIC PANEL (14) BUN/creatini ne ratio 14 9-23 Not Available [facility] ([facility]) [address] [facility] [place], [address], 12/24/2023 06:19:27 12/23/19 24 12/24/2023 COMP. METAB OLIC PANEL (14) sodium 137 mmol/ L 134-14 4 Not Available [facility] ([facility]) [address] [facility] [place], [address], 12/24/2023 06:19:27 12/23/19 24 12/24/2023 COMP. METAB OLIC PANEL (14) potassium 4.8 mmol/ L 3.5-5. 2 Not Available [facility] ([facility]) [address] [place], [address], 12/24/2023 06:19:27 12/23/19 24 12/24/2023 COMP. METAB OLIC PANEL (14) chloride 102 mmol/ L 96-106 Not Available [facility] ([facility]) [address] [facility] [place], [address], 12/24/2023 06:19:27 12/23/19 24 12/24/2023 COMP. METAB OLIC PANEL (14) carbon dioxide, total 20 mmol/ L 20-29 Not Available [facility] ([facility]) [address] [facility], [place], [address], 12/24/2023 06:19:27 12/23/19 24 12/24/2023 COMP. METAB OLIC PANEL (14) calcium 10.0 mg/dL 8.7-10 .2 Not Available [facility] ([facility]) [address] [place], [address], 12/24/2023 06:19:27 12/23/19 24 12/24/2023 COMP. METAB OLIC PANEL (14) protein, total 7.5 g/dL 6.0-8. 5 Not Available [facility] ([facility]) [address] [place], [address], 12/24/2023 06:19:27 12/23/19 24 12/24/2023 COMP. METAB OLIC PANEL (14) albumin 4.6 g/dL 3.9-4. 9 Not Available [facility] ([facility]) [address] [place], [address], 12/24/2023 06:19:27 12/23/19 24 12/24/2023 COMP. METAB OLIC PANEL (14) globulin, total 2.9 g/dL 1.5-4. 5 Not Available [facility] ([facility]) [address] [facility] [place], [address], 12/24/2023 06:19:27 12/23/19 24 12/24/2023 COMP. METAB OLIC PANEL (14) A/G ratio 1.6 1.2-2. 2 Not Available [facility] ([facility]) [address] [facility] [place], [address], 12/24/2023 06:19:27 12/23/19 24 12/24/2023 COMP. METAB OLIC PANEL (14) bilirubin, total 0.7 mg/dL 0.0-1. 2 Not Available [facility] ([facility] [address] [facility] [place], [address], 12/24/2023 06:19:27 12/23/19 24 12/24/2023 COMP. METAB OLIC PANEL (14) alkaline phosphatase 49 IU/L 44-121 Not Available [facility] ([facility]) [address] [facility] [place], [address], 12/24/2023 06:19:27 12/23/19 24 12/24/2023 COMP. METAB OLIC PANEL (14) AST (SGOT) 17 IU/L 0-40 Not Available [facility] ([facility]) [address] [facility] [place], [address], 12/24/2023 06:19:27 12/23/19 24 12/24/2023 COMP. METAB OLIC PANEL (14) ALT (SGPT) 26 IU/L 0-32 Not Available [facility] ([facility]) [address] [facility] [place], [address], 12/24/2023 06:19:27 12/23/19 24 12/24/2023 LIPID PANEL cholesterol, total 201 mg/dL 100-19 9 above high normal Not Available [facility] ([facility]) [address] [facility] [place], [address], 12/24/2023 06:19:28 12/23/19 24 12/24/2023 LIPID PANEL triglyceride s 58 mg/dL 0-149 Not Available [facility] ([facility]) [address] [facility] [place], [address], 12/24/2023 06:19:28 12/23/19 24 12/24/2023 LIPID PANEL HDL cholesterol 79 mg/dL >39 Not Available [facility] ([facility]) [address] [facility] [place], [address], 12/24/2023 06:19:28 12/23/19 24 12/24/2023 LIPID PANEL VLDL cholesterol vickie 11 mg/dL 5-40 Not Available [facility] ([facility]) [address] [facility] [place], [address], 12/24/2023 06:19:28 12/23/19 24 12/24/2023 LIPID PANEL LDL chol calc ([facility]) 111 mg/dL 0-99 above high normal Not Available [facility] ([facility]) [address] [facility] [place], [address], 12/24/2023 06:19:28 12/23/19 24 12/24/2023 LIPID PANEL comment: SPECIFICATION WRITER Not Available [facility] ([facility]) [address] [facility], [place], [address], 12/24/2023 06:19:28 12/23/19 24 12/24/2023 HEMOG LOBIN A1C hemoglobin A1C 5.3 % 4.8-5. 6 Predi abete s: 5.7 - 6.4 Diabe jessa: >6.4 Glyce isidro contr ol for adult s with diabe jessa: <7.0 Not Available [facility] ([facility]) [address] [place], [address], 12/24/2023 06:19:29 06/02/20 24 06/03/2024 CBC WITH DIFFE RENTI AL/PL ATELE T WBC 8.0 x10e3 /uL 3.4-10 .8 normal Not Available [facility] ([facility]) [address] [facility], [place], [address], 06/03/2024 14:15:27 06/02/20 24 06/03/2024 CBC WITH DIFFE RENTI AL/PL ATELE T RBC 4.19 x10e6 /uL 3.77-5 .28 normal Not Available [facility] ([facility]) [address] [place], [address], 06/03/2024 14:15:27 06/02/20 24 06/03/2024 CBC WITH DIFFE RENTI AL/PL ATELE T hemoglobin 13.3 g/dL 11.1-1 5.9 normal Not Available [facility] ([facility]) [address] [place], [address], 06/03/2024 14:15:27 06/02/20 24 06/03/2024 CBC WITH DIFFE RENTI AL/PL ATELE T hematocrit 40.4 % 34.0-4 6.6 normal Not Available [facility] ([facility]) [address] [facility], [place], [address], 06/03/2024 14:15:27 06/02/20 24 06/03/2024 CBC WITH DIFFE RENTI AL/PL ATELE T MCV 96 fL 79-97 normal Not Available [facility] ([facility]) [address] [place], [address], 06/03/2024 14:15:27 06/02/20 24 06/03/2024 CBC WITH DIFFE RENTI AL/PL ATELE T MCH 31.7 pg 26.6-3 3.0 normal Not Available [facility] ([facility]) [address] [place], [address], 06/03/2024 14:15:27 06/02/20 24 06/03/2024 CBC WITH DIFFE RENTI AL/PL ATELE T MCHC 32.9 g/dL 31.5-3 5.7 normal Not Available [facility] ([facility]) [address] [facility], [place], [address], 06/03/2024 14:15:27 06/02/20 24 06/03/2024 CBC WITH DIFFE RENTI AL/PL ATELE T RDW 11.7 % 11.7-1 5.4 Not Available [facility] ([facility]) [address] [facility], [place], [address], 06/03/2024 14:15:27 06/02/20 24 06/03/2024 CBC WITH DIFFE RENTI AL/PL ATELE T platelets 356 x10e3 /uL 150-45 0 normal Not Available [facility] ([facility]) [address] [facility], [place], [address], 06/03/2024 14:15:27 06/02/20 24 06/03/2024 CBC WITH DIFFE RENTI AL/PL ATELE T neutrophils 62 % not estab. normal Not Available [facility] ([facility]) [address] [facility], [place], [address], 06/03/2024 14:15:27 06/02/20 24 06/03/2024 CBC WITH DIFFE RENTI AL/PL ATELE T lymphs 29 % not estab. normal Not Available [facility] ([facility]) [address] [facility], [place], [address], 06/03/2024 14:15:27 06/02/20 24 06/03/2024 CBC WITH DIFFE RENTI AL/PL ATELE T monocytes 8 % not estab. normal Not Available [facility] ([facility]) [address] [facility], [place], [address], 06/03/2024 14:15:27 06/02/20 24 06/03/2024 CBC WITH DIFFE RENTI AL/PL ATELE T eos 1 % not estab. normal Not Available [facility] ([facility]) [address] [facility], [place], [address], 06/03/2024 14:15:27 06/02/20 24 06/03/2024 CBC WITH DIFFE RENTI AL/PL ATELE T basos 0 % not estab. normal Not Available [facility] ([facility]) [address] [facility], [place], [address], 06/03/2024 14:15:27 06/02/20 24 06/03/2024 CBC WITH DIFFE RENTI AL/PL ATELE T immature cells SPECIFICATION WRITER Not Available [facility] ([facility]) [address] [facility], [place], [address], 06/03/2024 14:15:27 06/02/20 24 06/03/2024 CBC WITH DIFFE RENTI AL/PL ATELE T neutrophils (absolute) 4.9 x10e3 /uL 1.4-7. 0 normal Not Available [facility] ([facility]) [address] [place], [address], 06/03/2024 14:15:27 06/02/20 24 06/03/2024 CBC WITH DIFFE RENTI AL/PL ATELE T lymphs (absolute) 2.3 x10e3 /uL 0.7-3. 1 normal Not Available [facility] ([facility]) [address] [place], [address], 06/03/2024 14:15:27 06/02/20 24 06/03/2024 CBC WITH DIFFE RENTI AL/PL ATELE T monocytes(ab solute) 0.7 x10e3 /uL 0.1-0. 9 normal Not Available [facility] ([facility]) [address] [place], [address], 06/03/2024 14:15:27 06/02/20 24 06/03/2024 CBC WITH DIFFE RENTI AL/PL ATELE T eos (absolute) 0.1 x10e3 /uL 0.0-0. 4 normal Not Available [facility] ([facility]) [address] [facility], [place], [address], 06/03/2024 14:15:27 06/02/20 24 06/03/2024 CBC WITH DIFFE RENTI AL/PL ATELE T baso (absolute) 0.0 x10e3 /uL 0.0-0. 2 normal Not Available [facility] ([facility]) [address] [facility], [place], [address], 06/03/2024 14:15:27 06/02/20 24 06/03/2024 CBC WITH DIFFE RENTI AL/PL ATELE T immature granulocytes 0 % not estab. Not Available [facility] ([facility]) [address] [facility], [place], [address], 06/03/2024 14:15:27 06/02/20 24 06/03/2024 CBC WITH DIFFE RENTI AL/PL ATELE T immature grans (abs) 0.0 x10e3 /uL 0.0-0. 1 Not Available [facility] ([facility]) [address] [facility], [place], [address], 06/03/2024 14:15:27 06/02/20 24 06/03/2024 CBC WITH DIFFE RENTI AL/PL ATELE T NRBC SPECIFICATION WRITER Not Available [facility] ([facility]) [address] [facility], [place], [address], 06/03/2024 14:15:27 06/02/20 24 06/03/2024 CBC WITH DIFFE RENTI AL/PL ATELE T hematology comments: SPECIFICATION WRITER Not Available [facility] ([facility]) [address] [facility], [place], [address], 06/03/2024 14:15:27 06/02/20 24 06/03/2024 COMP. METAB OLIC PANEL (14) glucose 83 mg/dL 70-99 normal Not Available [facility] ([facility]) [address] [facility] [place], [address], 06/03/2024 14:15:29 06/02/20 24 06/03/2024 COMP. METAB OLIC PANEL (14) BUN 13 mg/dL 6-24 normal Not Available [facility] ([facility]) [address] [facility] [place], [address], 06/03/2024 14:15:29 06/02/20 24 06/03/2024 COMP. METAB OLIC PANEL (14) creatinine 0.74 mg/dL 0.57-1 .00 normal Not Available [facility] ([facility]) [address] [facility], [place], [address], 06/03/2024 14:15:29 06/02/20 24 06/03/2024 COMP. METAB OLIC PANEL (14) eGFR 103 mL/mi n/1.7 3 >59 normal Not Available [facility] ([facility]) [address] [facility] [place], [address], 06/03/2024 14:15:29 06/02/20 24 06/03/2024 COMP. METAB OLIC PANEL (14) BUN/creatini ne ratio 18 9-23 normal Not Available [facility] ([facility]) [address] [place], [address], 06/03/2024 14:15:29 06/02/20 24 06/03/2024 COMP. METAB OLIC PANEL (14) sodium 136 mmol/ L 134-14 4 normal Not Available [facility] ([facility]) [address] [place], [address], 06/03/2024 14:15:29 06/02/20 24 06/03/2024 COMP. METAB OLIC PANEL (14) potassium 4.5 mmol/ L 3.5-5. 2 normal Not Available [facility] ([facility]) [address] [place], [address], 06/03/2024 14:15:29 06/02/20 24 06/03/2024 COMP. METAB OLIC PANEL (14) chloride 102 mmol/ L 96-106 normal Not Available [facility] ([facility]) [address] [place], [address], 06/03/2024 14:15:29 06/02/20 24 06/03/2024 COMP. METAB OLIC PANEL (14) carbon dioxide, total 25 mmol/ L 20-29 normal Not Available [facility] ([facility]) [address] [place], [address], 06/03/2024 14:15:29 06/02/20 24 06/03/2024 COMP. METAB OLIC PANEL (14) calcium 10.1 mg/dL 8.7-10 .2 normal Not Available [facility] ([facility]) [address] [place], [address], 06/03/2024 14:15:29 06/02/20 24 06/03/2024 COMP. METAB OLIC PANEL (14) protein, total 7.5 g/dL 6.0-8. 5 normal Not Available [facility] ([facility]) [address] [place], [address], 06/03/2024 14:15:29 06/02/20 24 06/03/2024 COMP. METAB OLIC PANEL (14) albumin 4.5 g/dL 3.9-4. 9 normal Not Available [facility] ([facility]) [address] [place], [address], 06/03/2024 14:15:29 06/02/20 24 06/03/2024 COMP. METAB OLIC PANEL (14) globulin, total 3.0 g/dL 1.5-4. 5 Not Available [facility] ([facility]) [address], [place], [address], 06/03/2024 14:15:29 06/02/20 24 06/03/2024 COMP. METAB OLIC PANEL (14) bilirubin, total 0.8 mg/dL 0.0-1. 2 normal Not Available [facility] ([facility]) [address] [place], [address], 06/03/2024 14:15:29 06/02/20 24 06/03/2024 COMP. METAB OLIC PANEL (14) alkaline phosphatase 46 IU/L 44-121 normal Not Available [facility] ([facility]) [address] [place], [address], 06/03/2024 14:15:29 06/02/20 24 06/03/2024 COMP. METAB OLIC PANEL (14) AST (SGOT) 16 IU/L 0-40 normal Not Available [facility] ([facility]) [address] [place], [address], 06/03/2024 14:15:29 06/02/20 24 06/03/2024 COMP. METAB OLIC PANEL (14) ALT (SGPT) 14 IU/L 0-32 normal Not Available [facility] ([facility]) [address] [place], [address], 06/03/2024 14:15:29 06/02/20 24 06/03/2024 LIPID PANEL cholesterol, total 191 mg/dL 100-19 9 normal Not Available [facility] ([facility]) [address] [place], [address], 06/03/2024 14:15:30 06/02/20 24 06/03/2024 LIPID PANEL triglyceride s 56 mg/dL 0-149 normal Not Available [facility] ([facility]) [address] [place], [address], 06/03/2024 14:15:30 06/02/20 24 06/03/2024 LIPID PANEL HDL cholesterol 67 mg/dL >39 normal Not Available [facility] ([facility]) [address] [place], [address], 06/03/2024 14:15:30 06/02/20 24 06/03/2024 LIPID PANEL VLDL cholesterol vickie 11 mg/dL 5-40 Not Available [facility] ([facility]) [address] [place], [address], 06/03/2024 14:15:30 06/02/20 24 06/03/2024 LIPID PANEL LDL chol calc ([facility]) 113 mg/dL 0-99 above high normal Not Available [facility] ([facility]) [address] [place], [address], 06/03/2024 14:15:30 06/02/20 24 06/03/2024 LIPID PANEL LDL calc comment: SPECIFICATION WRITER Not Available [facility] ([facility]) [address] [place], [address], 06/03/2024 14:15:30 06/02/20 24 06/03/2024 RHEUM ATOID ARTHR ITIS PROFI LE rheumatoid factor (rf) <10.0 IU/mL <14.0 Not Available [facility] ([facility]) [address] [place], [address], 06/03/2024 14:15:31 06/02/20 24 06/03/2024 RHEUM ATOID ARTHR ITIS PROFI LE anti-ccp Ab, IgG/IgA 13 units 0-19 Negat stanley <20 Weak posit stanley 20 - 39 Moder ate posit stanley 40 - 59 Stron g posit stanley >59 Not Available [facility] ([facility]) [address] [place], [address], 06/03/2024 14:15:31 06/02/20 24 06/03/2024 SEDIM ENTAT ION RATE- WESTE RGREN sedimentatio n rate-westerg jose david 2 mm/HR 0-32 normal Not Available [facility] ([facility]) [address] [facility], [place], [address], 06/03/2024 14:15:33 06/02/20 24 06/03/2024 LIPAS E lipase 48 U/L 14-72 normal Not Available [facility] ([facility]) [address] [facility], [place], [address], 06/03/2024 14:15:34 06/02/20 24 06/03/2024 C-ROSALIA CTIVE PROTE IN, QUANT C-reactive protein, quant <1 mg/L 0-10 Not Available [facility] ([facility]) [address] [facility], [place], [address], 06/03/2024 14:15:35 06/02/20 24 06/02/2024 urina lysis , dipst ick Leukocytes (reference range) negati ve Not Available [address], [place], [address], 06/02/2024 13:52:11 06/02/20 24 06/02/2024 urina lysis , dipst ick Nitrite (reference range:) negati ve Not Available [address], [place], [address], 06/02/2024 13:52:11 06/02/20 24 06/02/2024 urina lysis , dipst ick Urobilinogen (reference range) 0.2 Not Available [address], [place], [address], 06/02/2024 13:52:11 06/02/20 24 06/02/2024 urina lysis , dipst ick Protein (reference range) negati ve Not Available [address], [place], [address], 06/02/2024 13:52:11 06/02/20 24 06/02/2024 urina lysis , dipst ick pH (reference range 5-8.5) 5.5 Not Available [facility] [address], [place], [address], 06/02/2024 13:52:11 06/02/20 24 06/02/2024 urina lysis , dipst ick Blood (reference range:) negati ve Not Available [facility] [address] [facility] [address], [place], [address], 06/02/2024 13:52:11 06/02/20 24 06/02/2024 urina lysis , dipst ick Specific Castaner (reference range) 1.025 Not Available [facility] [address], [place], [address], 06/02/2024 13:52:11 06/02/20 24 06/02/2024 urina lysis , dipst ick Ketone (reference range) modera te Not Available [facility] [address] [facility] [address], [place], [address], 06/02/2024 13:52:11 06/02/20 24 06/02/2024 urina lysis , dipst ick Bilirubin (reference range) negati ve Not Available [facility] [address] [facility] [address], [place], [address], 06/02/2024 13:52:11 06/02/20 24 06/02/2024 urina lysis , dipst ick Glucose (reference range) negati ve Not Available [facility] [address] [facility] [address], [place], [address], 06/02/2024 13:52:11 06/02/20 24 06/02/2024 urina lysis , dipst ick Color (reference range: yellow-brown ) Yellow Not Available [facility] [place], [place] [address], 06/02/2024 13:52:11 08/05/19 25 08/06/2024 STEPHANIE C [...] tive enter opath y. Not Available [facility] ([facility]) [address] [facility], [place], [address], 08/08/2024 16:10:15 08/05/19 25 08/06/2024 STEPHANIE C DISEA SE PANEL immunoglobul in A, qn, serum 286 mg/dL 87-352 normal Not Available [facility] ([facility]) [address] [place], [address], 08/08/2024 16:10:15 08/05/19 25 08/08/2024 STEPHANIE C DISEA SE PANEL endomysial antibody IgA NEGATI VE negati ve Not Available [facility] ([facility]) [address] [place], [address], 08/08/2024 16:10:15 08/05/19 25 08/06/2024 CBC WITH DIFFE RENTI AL/PL ATELE T WBC 6.0 x10e3 /uL 3.4-10 .8 normal Not Available [facility] ([facility]) [address] [place], [address], 08/08/2024 16:10:16 08/05/19 25 08/06/2024 CBC WITH DIFFE RENTI AL/PL ATELE T RBC 4.34 x10e6 /uL 3.77-5 .28 normal Not Available [facility] ([facility]) [address] [facility], [place], [address], 08/08/2024 16:10:16 08/05/19 25 08/06/2024 CBC WITH DIFFE RENTI AL/PL ATELE T hemoglobin 13.5 g/dL 11.1-1 5.9 normal Not Available [facility] ([facility]) [address] [place], [address], 08/08/2024 16:10:16 08/05/19 25 08/06/2024 CBC WITH DIFFE RENTI AL/PL ATELE T hematocrit 40.4 % 34.0-4 6.6 normal Not Available [facility] ([facility]) [address] [place], [address], 08/08/2024 16:10:16 08/05/19 25 08/06/2024 CBC WITH DIFFE RENTI AL/PL ATELE T MCV 93 fL 79-97 normal Not Available [facility] ([facility]) [address] [place], [address], 08/08/2024 16:10:16 08/05/19 25 08/06/2024 CBC WITH DIFFE RENTI AL/PL ATELE T MCH 31.1 pg 26.6-3 3.0 normal Not Available [facility] ([facility]) [address] [place], [address], 08/08/2024 16:10:16 08/05/19 25 08/06/2024 CBC WITH DIFFE RENTI AL/PL ATELE T MCHC 33.4 g/dL 31.5-3 5.7 normal Not Available [facility] ([facility]) [address] [place], [address], 08/08/2024 16:10:16 08/05/19 25 08/06/2024 CBC WITH DIFFE RENTI AL/PL ATELE T RDW 11.7 % 11.7-1 5.4 Not Available [facility] ([facility]) [address] [facility], [place], [address], 08/08/2024 16:10:16 08/05/19 25 08/06/2024 CBC WITH DIFFE RENTI AL/PL ATELE T platelets 468 x10e3 /uL 150-45 0 above high normal Not Available [facility] ([facility]) [address] [facility], [place], [address], 08/08/2024 16:10:16 08/05/19 25 08/06/2024 CBC WITH DIFFE RENTI AL/PL ATELE T neutrophils 56 % not estab. normal Not Available [facility] ([facility]) [address] [facility], [place], [address], 08/08/2024 16:10:16 08/05/19 25 08/06/2024 CBC WITH DIFFE RENTI AL/PL ATELE T lymphs 33 % not estab. normal Not Available [facility] ([facility]) [address] [facility], [place], [address], 08/08/2024 16:10:16 08/05/19 25 08/06/2024 CBC WITH DIFFE RENTI AL/PL ATELE T monocytes 9 % not estab. normal Not Available [facility] ([facility]) [address] [facility], [place], [address], 08/08/2024 16:10:16 08/05/19 25 08/06/2024 CBC WITH DIFFE RENTI AL/PL ATELE T eos 2 % not estab. normal Not Available [facility] ([facility]) [address] [facility], [place], [address], 08/08/2024 16:10:16 08/05/19 25 08/06/2024 CBC WITH DIFFE RENTI AL/PL ATELE T basos 0 % not estab. normal Not Available [facility] ([facility]) [address] [facility], [place], [address], 08/08/2024 16:10:16 08/05/19 25 08/06/2024 CBC WITH DIFFE RENTI AL/PL ATELE T immature cells SPECIFICATION WRITER Not Available [facility] ([facility]) [address] [place], [address], 08/08/2024 16:10:16 08/05/19 25 08/06/2024 CBC WITH DIFFE RENTI AL/PL ATELE T neutrophils (absolute) 3.3 x10e3 /uL 1.4-7. 0 normal Not Available [facility] ([facility]) [address] [place], [address], 08/08/2024 16:10:16 08/05/19 25 08/06/2024 CBC WITH DIFFE RENTI AL/PL ATELE T lymphs (absolute) 2.0 x10e3 /uL 0.7-3. 1 normal Not Available [facility] ([facility]) [address] [place], [address], 08/08/2024 16:10:16 08/05/19 25 08/06/2024 CBC WITH DIFFE RENTI AL/PL ATELE T monocytes(ab solute) 0.6 x10e3 /uL 0.1-0. 9 normal Not Available [facility] ([facility]) [address] [place], [address], 08/08/2024 16:10:16 08/05/19 25 08/06/2024 CBC WITH DIFFE RENTI AL/PL ATELE T eos (absolute) 0.1 x10e3 /uL 0.0-0. 4 normal Not Available [facility] ([facility]) [address] [place], [address], 08/08/2024 16:10:16 08/05/19 25 08/06/2024 CBC WITH DIFFE RENTI AL/PL ATELE T baso (absolute) 0.0 x10e3 /uL 0.0-0. 2 normal Not Available [facility] ([facility]) [address] [facility], [place], [address], 08/08/2024 16:10:16 08/05/19 25 08/06/2024 CBC WITH DIFFE RENTI AL/PL ATELE T immature granulocytes 0 % not estab. Not Available [facility] ([facility]) [address] [facility], [place], [address], 08/08/2024 16:10:16 08/05/19 25 08/06/2024 CBC WITH DIFFE RENTI AL/PL ATELE T immature grans (abs) 0.0 x10e3 /uL 0.0-0. 1 Not Available [facility] ([facility]) [address] [facility], [place], [address], 08/08/2024 16:10:16 08/05/19 25 08/06/2024 CBC WITH DIFFE RENTI AL/PL ATELE T NRBC SPECIFICATION WRITER Not Available [facility] ([facility]) [address] [facility], [place], [address], 08/08/2024 16:10:16 08/05/19 25 08/06/2024 CBC WITH DIFFE RENTI AL/PL ATELE T hematology comments: SPECIFICATION WRITER Not Available [facility] ([facility]) [address] [facility], [place], [address], 08/08/2024 16:10:16 08/05/19 25 08/06/2024 COMP. METAB OLIC PANEL (14) glucose 80 mg/dL 70-99 normal Not Available [facility] ([facility]) [address] [facility], [place], [address], 08/08/2024 16:10:17 08/05/19 25 08/06/2024 COMP. METAB OLIC PANEL (14) BUN 13 mg/dL 6-24 normal Not Available [facility] ([facility]) [address] [facility] [place], [address], 08/08/2024 16:10:17 08/05/19 25 08/06/2024 COMP. METAB OLIC PANEL (14) creatinine 0.80 mg/dL 0.57-1 .00 normal Not Available [facility] ([facility]) [address] [facility] [place], [address], 08/08/2024 16:10:17 08/05/19 25 08/06/2024 COMP. METAB OLIC PANEL (14) eGFR 94 mL/mi n/1.7 3 >59 normal Not Available [facility] ([facility]) [address] [facility] [place], [address], 08/08/2024 16:10:17 08/05/19 25 08/06/2024 COMP. METAB OLIC PANEL (14) BUN/creatini ne ratio 16 9-23 normal Not Available [facility] ([facility]) [address] [facility], [place], [address], 08/08/2024 16:10:17 08/05/19 25 08/06/2024 COMP. METAB OLIC PANEL (14) sodium 138 mmol/ L 134-14 4 normal Not Available [facility] ([facility]) [address] [facility] [place], [address], 08/08/2024 16:10:17 08/05/19 25 08/06/2024 COMP. METAB OLIC PANEL (14) potassium 4.5 mmol/ L 3.5-5. 2 normal Not Available [facility] ([facility]) [address] [facility] [place], [address], 08/08/2024 16:10:17 08/05/19 25 08/06/2024 COMP. METAB OLIC PANEL (14) chloride 101 mmol/ L 96-106 normal Not Available [facility] ([facility]) [address] [facility] [place], [address], 08/08/2024 16:10:17 08/05/19 25 08/06/2024 COMP. METAB OLIC PANEL (14) carbon dioxide, total 22 mmol/ L 20-29 normal Not Available [facility] ([facility]) [address] [facility] [place], [address], 08/08/2024 16:10:17 08/05/19 25 08/06/2024 COMP. METAB OLIC PANEL (14) calcium 9.9 mg/dL 8.7-10 .2 normal Not Available [facility] ([facility]) [address] [facility] [place], [address], 08/08/2024 16:10:17 08/05/19 25 08/06/2024 COMP. METAB OLIC PANEL (14) protein, total 7.4 g/dL 6.0-8. 5 normal Not Available [facility] ([facility]) [address] [facility] [place], [address], 08/08/2024 16:10:17 08/05/19 25 08/06/2024 COMP. METAB OLIC PANEL (14) albumin 4.5 g/dL 3.9-4. 9 normal Not Available [facility] ([facility]) [address] [place] [place], [address], 08/08/2024 16:10:17 08/05/19 25 08/06/2024 COMP. METAB OLIC PANEL (14) globulin, total 2.9 g/dL 1.5-4. 5 Not Available [facility] ([facility]) [address] [place] [place], [address], 08/08/2024 16:10:17 08/05/19 25 08/06/2024 COMP. METAB OLIC PANEL (14) bilirubin, total 0.5 mg/dL 0.0-1. 2 normal Not Available [facility] ([facility]) [address] [place], [address], 08/08/2024 16:10:17 08/05/19 25 08/06/2024 COMP. METAB OLIC PANEL (14) alkaline phosphatase 46 IU/L 44-121 normal Not Available [facility] ([facility]) [address] [place], [address], 08/08/2024 16:10:17 08/05/19 25 08/06/2024 COMP. METAB OLIC PANEL (14) AST (SGOT) 15 IU/L 0-40 normal Not Available [facility] ([facility]) [address] [place], [address], 08/08/2024 16:10:17 08/05/19 25 08/06/2024 COMP. METAB OLIC PANEL (14) ALT (SGPT) 14 IU/L 0-32 normal Not Available [facility] ([facility]) [address] [place], [address], 08/08/2024 16:10:17 08/05/19 25 08/06/2024 C-ROSALIA CTIVE PROTE IN, QUANT C-reactive protein, quant <1 mg/L 0-10 Not Available [facility] ([facility]) [address] [place], [address], 08/08/2024 16:10:19 08/05/19 25 08/18/2024 SPECI MEN STATU S REPOR T specimen status report COMMEN T Test not perfo rmed due to the age of this speci men. TEST: [id number] 4 H. pylor i Stool Ag, EIA Not Available [facility] ([facility]) [address] [place], [address], 08/22/2024 11:08:56 08/05/19 25 08/18/2024 GI PROFI LE, STOOL , PCR campylobacte r COMMEN T Test not perfo rmed due to the age of this speci men. Not Available [facility] ([facility]) [address] [place], [address], 08/22/2024 11:08:46 08/05/19 25 08/18/2024 GI PROFI LE, STOOL , PCR C difficile toxin A/B TNP Test not perfo rmed Not Available [facility] ([facility]) [address] [place], [address], 08/22/2024 11:08:46 08/05/19 25 08/18/2024 GI PROFI LE, STOOL , PCR plesiomonas shigelloides TNP Test not perfo rmed Not Available [facility] ([facility]) [address] [place], [address], 08/22/2024 11:08:46 08/05/19 25 08/18/2024 GI PROFI LE, STOOL , PCR salmonella TNP Test not perfo rmed Not Available [facility] ([facility]) [address] [place], [address], 08/22/2024 11:08:46 08/05/19 25 08/18/2024 GI PROFI LE, STOOL , PCR vibrio TNP Test not perfo rmed Not Available [facility] ([facility]) [address] [place], [address], 08/22/2024 11:08:46 08/05/19 25 08/18/2024 GI PROFI LE, STOOL , PCR vibrio cholerae TNP Test not perfo rmed Not Available [facility] ([facility]) [address] [place], [address], 08/22/2024 11:08:46 08/05/19 25 08/18/2024 GI PROFI LE, STOOL , PCR yersinia enterocoliti ca TNP Test not perfo rmed Not Available [facility] ([facility]) [address] [place], [address], 08/22/2024 11:08:46 08/05/19 25 08/18/2024 GI PROFI LE, STOOL , PCR enteroaggreg ative E coli TNP Test not perfo rmed Not Available [facility] ([facility]) [address] [place], [address], 08/22/2024 11:08:46 08/05/19 25 08/18/2024 GI PROFI LE, STOOL , PCR enteropathog enic E coli TNP Test not perfo rmed Not Available [facility] ([facility]) [address] [place], [address], 08/22/2024 11:08:46 08/05/19 25 08/18/2024 GI PROFI LE, STOOL , PCR enterotoxige melina E coli TNP Test not perfo rmed Not Available [facility] ([facility]) [address] [place], [address], 08/22/2024 11:08:46 08/05/19 25 08/18/2024 GI PROFI LE, STOOL , PCR shiga-toxin- producing E coli TNP Test not perfo rmed Not Available [facility] ([facility]) [address] [place], [address], 08/22/2024 11:08:46 08/05/19 25 08/18/2024 GI PROFI LE, STOOL , PCR E coli O157 TNP Test not perfo rmed Not Available [facility] ([facility]) [address] [place], [address], 08/22/2024 11:08:46 08/05/19 25 08/18/2024 GI PROFI LE, STOOL , PCR shigella/ent eroinvasive E coli TNP Test not perfo rmed Not Available [facility] ([facility]) [address] [place], [address], 08/22/2024 11:08:46 08/05/19 25 08/18/2024 GI PROFI LE, STOOL , PCR cryptosporid ium TNP Test not perfo rmed Not Available [facility] ([facility]) [address] [place], [address], 08/22/2024 11:08:46 08/05/19 25 08/18/2024 GI PROFI LE, STOOL , PCR cyclospora cayetanensis TNP Test not perfo rmed Not Available [facility] ([facility]) [address] [place], [address], 08/22/2024 11:08:46 08/05/19 25 08/18/2024 GI PROFI LE, STOOL , PCR entamoeba histolytica TNP Test not perfo rmed Not Available [facility] ([facility]) [address] [place], [address], 08/22/2024 11:08:46 08/05/19 25 08/18/2024 GI PROFI LE, STOOL , PCR giardia lamblia TNP Test not perfo rmed Not Available [facility] ([facility]) [address] [place], [address], 08/22/2024 11:08:46 08/05/19 25 08/18/2024 GI PROFI LE, STOOL , PCR adenovirus F 40/41 TNP Test not perfo rmed Not Available [facility] ([facility]) [address] [place], [address], 08/22/2024 11:08:46 08/05/19 25 08/18/2024 GI PROFI LE, STOOL , PCR astrovirus TNP Test not perfo rmed Not Available [facility] ([facility]) [address] [place], [address], 08/22/2024 11:08:46 08/05/19 25 08/18/2024 GI PROFI LE, STOOL , PCR norovirus GI/gii TNP Test not perfo rmed Not Available [facility] ([facility]) [address] [facility], [place], [address], 08/22/2024 11:08:46 08/05/19 25 08/18/2024 GI PROFI LE, STOOL , PCR rotavirus A TNP Test not perfo rmed Not Available [facility] ([facility]) [address] [facility], [place], [address], 08/22/2024 11:08:46 08/05/19 25 08/18/2024 GI PROFI LE, STOOL , PCR sapovirus TNP Test not perfo rmed Not Available [facility] ([facility]) [address] [facility], [place], [address], 08/22/2024 11:08:46 08/05/19 25 08/18/2024 COMP. METAB OLIC PANEL (14) glucose COMMEN T mg/dL Test not perfo rmed. The requi red speci men for the test order ed was not recei blake. Not Available [facility] ([facility]) [address] [place], [address], 08/22/2024 11:08:48 08/05/19 25 08/18/2024 COMP. METAB OLIC PANEL (14) BUN TNP Test not perfo rmed Not Available [facility] ([facility]) [address] [place], [address], 08/22/2024 11:08:48 08/05/19 25 08/18/2024 COMP. METAB OLIC PANEL (14) creatinine TNP Test not perfo rmed Not Available [facility] ([facility]) [address] [place], [address], 08/22/2024 11:08:48 08/05/19 25 08/18/2024 COMP. METAB OLIC PANEL (14) eGFR SPECIFICATION WRITER Not Available [facility] ([facility]) [address], [place], [address], 08/22/2024 11:08:48 08/05/19 25 08/18/2024 COMP. METAB OLIC PANEL (14) BUN/creatini ne ratio SPECIFICATION WRITER Not Available [facility] ([facility]) [address], [place], [address], 08/22/2024 11:08:48 08/05/19 25 08/18/2024 COMP. METAB OLIC PANEL (14) sodium TNP Test not perfo rmed Not Available [facility] ([facility]) [address], [place], [address], 08/22/2024 11:08:48 08/05/19 25 08/18/2024 COMP. METAB OLIC PANEL (14) potassium TNP Test not perfo rmed Not Available [facility] ([facility]) [address], [place], [address], 08/22/2024 11:08:48 08/05/19 25 08/18/2024 COMP. METAB OLIC PANEL (14) chloride TNP Test not perfo rmed Not Available [facility] ([facility]) [address], [place], [address], 08/22/2024 11:08:48 08/05/19 25 08/18/2024 COMP. METAB OLIC PANEL (14) carbon dioxide, total TNP Test not perfo rmed Not Available [facility] ([facility]) [address], [place], [address], 08/22/2024 11:08:48 08/05/19 25 08/18/2024 COMP. METAB OLIC PANEL (14) calcium TNP Test not perfo rmed Not Available [facility] ([facility]) [address], [place], [address], 08/22/2024 11:08:48 08/05/19 25 08/18/2024 COMP. METAB OLIC PANEL (14) protein, total TNP Test not perfo rmed Not Available [facility] ([facility]) [address] [facility] [place], [address], 08/22/2024 11:08:48 08/05/19 25 08/18/2024 COMP. METAB OLIC PANEL (14) albumin TNP Test not perfo rmed Not Available [facility] ([facility]) [address], [place], [address], 08/22/2024 11:08:48 08/05/19 25 08/18/2024 COMP. METAB OLIC PANEL (14) globulin, total SPECIFICATION WRITER Not Available [facility] ([facility]) [address] [facility], [place], [address], 08/22/2024 11:08:48 08/05/19 25 08/18/2024 COMP. METAB OLIC PANEL (14) A/G ratio SPECIFICATION WRITER Not Available [facility] ([facility]) [address] [facility] [place], [address], 08/22/2024 11:08:48 08/05/19 25 08/18/2024 COMP. METAB OLIC PANEL (14) bilirubin, total TNP Test not perfo rmed Not Available [facility] ([facility]) [address] [facility] [place], [address], 08/22/2024 11:08:48 08/05/19 25 08/18/2024 COMP. METAB OLIC PANEL (14) alkaline phosphatase TNP Test not perfo rmed Not Available [facility] ([facility]) [address] [place] [place], [address], 08/22/2024 11:08:48 08/05/19 25 08/18/2024 COMP. METAB OLIC PANEL (14) AST (SGOT) TNP Test not perfo rmed Not Available [facility] ([facility]) [address] [facility], [place], [address], 08/22/2024 11:08:48 08/05/19 25 08/18/2024 COMP. METAB OLIC PANEL (14) ALT (SGPT) TNP Test not perfo rmed Not Available [facility] ([facility]) [address] [place], [address], 08/22/2024 11:08:48 08/05/19 25 08/21/2024 PANCR EATIC ELAST ASE, FECAL pancreatic elastase, fecal >800 ug_el ast./ g >200 Sever e Pancr eatic Insuf ficie ncy: <100 Moder ate Pancr eatic Insuf ficie ncy: 100 - 200 Karina l: >200 Not Available [facility] ([facility]) [address] [place], [address], 08/22/2024 11:08:50 08/05/19 25 08/22/2024 CALPR OTECT IN, FECAL calprotectin , fecal 10 ug/g 0-120 Liana ntrat ion Inter preta tion Follo w-Up < 5 - 50 ug/g Karina l None >50 -120 ug/g Borde rline Re-ev aluat e in 4-6 weeks >120 ug/g Abnor mal Repea t as clini rio indic ated Not Available [facility] ([facility]) [address] [place], [address], 08/22/2024 11:08:51 08/05/19 25 08/18/[address] PROBL EM request problem COMMEN T Test not perfo rmed. The requi red speci men for the test order ed was not recei blake. TEST: [id number] Stephanie c Disea se Panel 14815 9 CBC With Diffe renti al/[place] t [address] 0 Comp. Metab olic Panel (14) 08018 7 C-Rosalia ctive Prote in, Quant Not Available [facility] ([facility]) [address] [place], [address], 08/22/2024 11:08:52 08/05/19 25 08/19/2024 OVA + JARROD ITE EXAM ova + parasite exam FINAL REPORT These resul ts were obtai nieves using wet prepa ratio n(s) and trich ayaan stain ed smear . This test does not inclu de testi ng for Crypt ospor idium parvu m, Cyclo spora , or Micro spori davey. Not Available [facility] ([facility]) [address] [facility], [place], [address], 08/22/2024 11:08:54 08/05/19 25 08/19/2024 OVA + JARROD ITE EXAM result 1 COMMEN T No ova, cysts , or jarrod ites seen. One negat stanley speci men does not rule out the possi bilit y of a jarrod itic infec tion. Not Available [facility] ([facility]) [address], [place], [address], 08/22/2024 11:08:54 08/05/19 25 08/18/[address] PROBL EM request problem COMMEN T Test not perfo rmed due to the age of this speci men. TEST: 02239 0 GI Profi le, Stool , PCR Not Available [facility] ([facility]) [address], [place], [address], 08/22/2024 11:08:55 08/05/19 25 08/18/2024 PLEAS E NOTE please note Commen t The date recor ded on the requi sitio n indic ates the sampl e(s) recei blake were great er than 72 hours old upon arriv al in our labor atory . Not Available [facility] ([facility]) [address], [place], [address], 08/22/2024 11:08:57 08/30/19 25 08/17/2024 imagi ng inter preta tion No observ ation record ed. [email or web address] [facility] (Scheduling) [address], [place], [address], 08/31/2024 08:45:49 08/30/1908/17/2024 US, trans vagin al No observ ation record ed. [email or web address] [facility] (Scheduling) [address], [place], [address], 09/12/2024 16:25:20 08/31/19 25 08/17/2024 CT, abdom en + pelvi s, w/ contr ast No observ ation record ed. [email or web address] [facility] (Scheduling) [address], [place], [address], 08/31/2024 08:59:43 Result Notes None recorded. Problems Name Problem SNOMED Code Status Onset Date Resolution Date Notes Provider Name and Address Organization Details Recorded Time Stress 98450033 Active Jillian Urias null, [place] [facility] [place] [facility] [place] 2 09:48:50 Essential hypertension 20070718 Active Jillian Uri[place] [facility] [place] 2 09:48:50 Mild anxiety 30236890 Active Jillian Urias null, [place] [facility] [place] 2 09:48:50 Problem Notes None recorded. Procedures Surgical History Date Name Laterality Status Provider Name and Address Organization Details Recorded Time 4 completed Alice Wyocena [place] [facility] [place] 09/03/2023 10:22:14 4 Most Recent Mammogram completed Shital Maldonadoong [place] [facility] [place] 11/20/2023 11:34:19 3 Date of Last Pap Smear completed Aliceholly Skelton [place] [facility] [place] 09/03/2023 10:22:14 delivery completed Kerry Cuevas [place] [facility] [place] 03/31/2023 15:53:30 Imaging Results None recorded. Procedure [...] Updated DateTime 5 162.56 cm 24.1 kg/m2 11162.0 1 g 98.8 [degF] 98 % 98 % 71 /min 141/99 mm[Hg] Angie heck [place] [facility] [place] 5 09:14:53 Date Recorded Body height Body mass index (BMI) Body weight Body temperature Oxygen saturation Oxygen saturation in Arterial blood by Pulse oximetry Heart rate Heart rate Systolic And Diastolic Provider Name and Address Organization Details Last Updated DateTime 5 162.56 cm 23.7 kg/m2 42555.8 2 g 97.9 [degF] 99 % 99 % 65 /min 65 /min 135/98 mm[Hg] Ching Copeland [facility] & [place] 5 09:02:17 Date Recorded Body height Body mass index (BMI) Body weight Body temperature Oxygen saturation Oxygen saturation in Arterial blood by Pulse oximetry Heart rate Systolic And Diastolic Provider Name and Address Organization Details Last Updated DateTime 4 162.56 cm 22.8 kg/m2 72966.7 9 g 96.6 [degF] 100 % 100 % 59 /min 118/80 mm[Hg] [facility] & [place] 4 10:24:15 Date Recorded Body height Body mass index (BMI) Body weight Body temperature Oxygen saturation Oxygen saturation in Arterial blood by Pulse oximetry Heart rate Systolic And Diastolic Provider Name and Address Organization Details Last Updated DateTime 4 162.56 cm 23 kg/m2 52727.3 8 g 97.8 [degF] 99 % 99 % 51 /min 120/78 mm[Hg] Alice [facility] & [place] 4 13:24:16 Date Recorded Body height Body mass index (BMI) Body weight Body temperature Oxygen saturation Oxygen saturation in Arterial blood by Pulse oximetry Heart rate Systolic And Diastolic Provider Name and Address Organization Details Last Updated DateTime 4 162.56 cm 23.5 kg/m2 62062.1 5 g 98.2 [degF] 99 % 99 % 45 /min 108/64 mm[Hg] Alice [facility] & [place] 4 13:18:02 Social History Question Answer Notes LastModified by Organizat ion Details LastModified Time Tobacco Smoking Status Never Smoker Jillian Adonay [place], [facility] & [place] 04/08/2022 09:52:03 Do You Have An Advance Directive? No [email or web address] Information not available 09/03/2023 If You Are , What Was Your Level Of Alcohol Consumption Prior To ? None [email or web address] Information not available 09/03/2023 Are You Blind Or Do You Have Difficulty Seeing? No [email or web address] Information not available 09/03/2023 What Is Your Level Of Caffeine Consumption? None Information not available 09/03/2023 What Was The Date Of Your Most Recent Tobacco Screening? 09/02/2023 [email or web address] Information not available 09/03/2023 Are You Passively Exposed To Smoke? No [email or web address] Information no t available 09/03/2023 How Much Tobacco Do You Smoke? No [email or web address] Information not available 09/03/2023 Has Tobacco Cessation Counseling Been Provided? No [email or web address] Information not available 09/03/2023 How Many Years Have You Smoked Tobacco? 0 [email or web address] Information not available 09/03/2023 Sex: Unknown Functional Status Question Answer Note LastModified by Organizat ion Details LastModified Time Do you use any illicit or recreational drugs? No [email or web address] Information not available 04/08/2022 Do you or have you ever used any other forms of tobacco or nicotine? No [email or web address] Information not available 09/03/2023 What is your level of alcohol consumption? Occasional [email or web address] Information not available 09/03/2023 Do you or have you ever used smokeless tobacco? Never used smokeless tobacco [email or web address] Information not available 09/03/2023 What is your exercise level? Moderate [email or web address] Information not available 09/03/2023 Mental Status Question Answer Note LastModified by Organization D etails LastModified Time Do you feel stressed (tense, restless, nervous, or anxious, or unable to sleep at night)? [id number] Information not available 09/03/2023 Family History Relationship [...] completed Kerry ramirez, [place] [facility] [place] 03/31/2023 14:51:54 COVID-19, mRNA, LNP-S, PF, 30 mcg/0.3 mL dose 10/31/2020 completed Kerry Raedi null, [place] [facility] & [place] 03/31/2023 14:51:54 Past Encounters Encounter ID Performer Location Encounter Start Date Encounter Closed Date Diagnosis/Indication Diagnosis SNOMED-CT Code Diagnosis ICD10 Code Diagnosis IMO Codes Diagnosis Note [id number] Олег Villarreal MD [address] [place] [address] 04/08/2022 09:36:23 04/08/2022 10:47:21 Palpitations 23156952 R00.2 Essential hypertension 45182609 I10 Anxiety 53767662 F41.9 Acid reflux 466264798 K2 1.9 [id number] Олег Villarreal MD [address] [place] [address] 10/30/2022 13:23:32 10/30/2022 14:29:12 Adult health examination 108204978 Z00.00 Hyperlipid emia screening 436041172 Z13.220 Diabetes m ellitus screening 934938081 Z13.1 Essential hypertension 36754165 I10 Pain in pelvis 43386629 R10.2 check urine, AIT panel Vaginal discharge 800021 006 N89.8 see above, pending f/u with lead miner. [id number] Олег Villarreal MD [address] [place] [address] 11/25/2022 15:44:31 11/25/2022 16:26:01 Essential hypertension 33679169 I10 continue atenololha d been on HCTZ in the pastrefer to cards for consultpri or EKG WNLA1c lipids WNl in October Family his tory of coronary arteriosclerosis 923673020 Z82.49 Musculoskeletal pain 279 400344 M79.10 rec trial of massage/ch iro [id number] Anthony Pacheco MD [address] [place] [address] 12/12/2022 09:40:12 12/12/2022 11:22:41 Upper respiratory infection 84909167 J06.9 Pain in throat 347127988 R07.0 [id number] Олег Villarreal MD [address] [place] [address] 04/08/2023 13:30:32 04/08/2023 14:43:26 Essential hypertension 92783530 I10 pending echo with cardsstres s not covered by insurance, pt plans to discuss with cards Lower abdominal pain 545 43448 R10.30 suspect psoas syndrome but due to family hx of pancreatic cancer and other malignanci es, we can consider CT if she would like. she will first try stretching and therapy approach and then let me know how she wants to proceed. [id number] Олег Villarreal MD [address] [place] [address] 09/03/2023 10:15:05 09/03/2023 10:53:50 Right lateral elbow tendinopathy 1130607194 64682 M77.11 discussed splinting wrist to avoid activation of affected muscles/te ndons to rest while using voltaren topically and other supportive measures but order for PT and xray given if not improving, patient would also like to try topical compounded cream as well which will be faxed in [id number] Олег Villarreal MD [facility] [address] [place] [address] 12/23/2023 13:16:14 12/23/2023 15:37:50 Adult health examination 166942629 Z00.00 Hyperlipid emia screening 482819635 Z13.220 Diabetes m ellitus screening 839968495 Z13.1 Essential hypertension 38109803 I10 continue atenololdi scussed how she may be able to come off med if she has increase in cardio and monitors pressure, consider 1/2 dose if improving and following pressures Onychomycosis 493916704 B35.1 rx faxed to renetta chaves [id number] Олег Villarreal MD [facility] [address] [place] [address] 06/02/2024 13:13:25 06/02/2024 15:18:51 Abdominal pain 50242335 R10.9 Pain of mu ltiple joints 93699287 M25.50 Hyperlipidemia 31868216 E78.5 [id number] ANGIE FERNANDO NP [facility] [address] [place] [address] 08/05/2024 08:55:46 08/05/2024 10:35:21 Abdominal pain 72546337 R10.9 Labs today.Cyril mmend she schedule abdominal CT as previously ordered by Dr. Villarreal. Abdominal bloating 32773 9008 R14.0 Excessive flatus 4168397 7 R14.3 Excessive belching 41867 7000 R14.2 Loose stool 181009380 R1 9.5 Stool studies recommende d. [id number] ANGIE FERNANDO NP [facility] [address] [place] [address] 09/01/2024 08:53:28 09/01/2024 09:31:54 Abdominal pain 23070780 R10.9 Improving. CBC, CMP, CRP unremarkab le. Negative celiac panel. Loose stool 603225631 R1 9.5 Stool studies findings - normal fecal calprotect in, pancreatic elastase, and O&P. GI panel and H. pylori did not result due to age of specimen. With improvemen t in stool consistenc y we will hold off on repeat for now. Recommend metamucil consistent ly, increased water intake. Start OTC probiotic with billion cell count. Lesion of liver 94695298 0 K76.9 4 mm hypodense lesion in [...] - [employer] - [employer] X (HMO) [id number] Renée Green [id number] Renée Green 08/05/2024 1 [employer] (O) HIXKY Renée Green [id number] Renée Green Notes Date Note Type Note [...] mother and uncle. Олег Villarreal MD [address] [facility], [place], [address], [place] [facility] [place] 09/03/2023 12:54:16 12/23/2023 text/html ROS as noted [...] yet due for testingPap smear: follows with lead miner in [place], 2022 WNL HLP screening: due for screeningDM [...] topical. Олег Villarreal MD [address], [place], [address], [facility] & [place] 12/23/2023 14:23:14 06/02/2024 text/html ROS as noted [...] changes. Олег Villarreal MD [address], [place], [address], [facility] & [place] 06/02/2024 17:28:41 08/05/2024 text/html Renée Green is a 44 yr old female here today by referral for abdominal pain.During the Covid-19 pandemic she moved from [place] to [place]. Stress was increased during this time. She [...] has seemed to help some. She says GANG MOWER OPERATOR also performed a TVUS that was normal. [...] of pancreatic cancer. ANGIE FERNANDO, MAKSIM [address] [facility] [facility], [place], [address], [place] [facility] [place] 08/08/2024 15:01:32 09/01/2024 text/html PREVIOUS: Renée Green is a 44 yr old female here today by referral for abdominal pain.During the Covid-19 pandemic she moved from [place] to [place]. Stress was increased during this time. She [...] has seemed to help some. She says GANG MOWER OPERATOR also performed a TVUS that was normal. [...] around 60 oz water daily. ANGIE FERNANDO, SPECIFICATION WRITER [address], [place], [address], [facility] [place] - [place] 09/01/2024 09:43:14 OBGyn Episode No OBEpisode recorded.
--- OUTSIDE RECORDS SUMMARY | 2025-05-24 12:18 | XMS_ITS | Encounter Summary ---
Author Organization Healthcare Address [address] [place] [address] Care Team Providers Care Hairspring Studder Name Role Phone Shyanne Castro APRN Primary Care Provider [phone] Deb Devine Unavailable Unavailabl e Encounter Details Date Type Department Care Team (Late st Contact Info) Description 09/07/2024 Outside Procedure External Location [address] [place] [address] Provider, Caden [place] Social History Tobacco Use Types Packs/Day Years [...] any time in the past 12 m [facility], were you homeless or living in a fdc (including now)? No 09/07/2024 Utilities Answer Date [...] AM EST Narrative 09/07/2024 11:51 AM EST [address] [address] Name: COLE GREEN Exam Date: 09/07/2024 : 1980 Age 44 years Gender: F Physician: GARIMA DAVIS Facility: [facility] Facility HSV: Outpatient Exam: JAZMINE SCRN MAMMO [...] Thank you for referring COLE GREEN to [facility]. Legally authenticated by BRENDA DAVILA 2024-09-07 11:43:54 Procedure Note Provider, Caden Carolina - 09/07/2024 [address] [place] [address] Name: COLE GREEN Exam Date: 09/07/2024 : 1980 Age 44 years Gender: F Physician: GARIMA DAVIS Facility: [facility] Facility HSV: Outpatient Exam: JAZMINE SCRN MAMMO [...] by: Galo Mendiola MD 09/07/2024 11:46 AM [facility] Dictated By: Galo Mendiola Transcribed By: Transcribed On: 09/07/2024 11:43 AM Electronically signed by: Galo Mendiola 09/07/2024 Thank you for referring COLE GREEN to [facility]. Legally authenticated by BRENDA DAVILA 2024-09-07 11:43:54 Generic [place] Provider IMG BI PROCEDURES Fi nal Result documented in this encounter Visit Diagnoses Not on filedocumented in this encounter Additional Health Concerns Assessment Noted Time PHQ-9 Depression Total Score: 0 09/07/19 9:33 AM EST A Body Mass Index follow-up plan has been documented for the patient 09/07/2024 12:05 PM EST documented as of this encounter Care Teams Hairspring Studder Relationship Specialty Start Date End Date Shyanne Castro APRN [address] [place] [address] PCP - General Family Medicine 09/07/24 Deb Devine Clinical Heavy Cleaner 09/07/24 10/11/24 documented as of this encounter
== END 2025-05-24 23:59 | disposition home or self-care (01) ==
LOC: RAD 12:00
PROVIDERS: PCP Nurse Practitioner Family; Visit Provider Internal Medicine Gastroenterology
DX: K59.00 Constipation, unspecified (principal)
CPT/HCPCS: 74018

== ENCOUNTER 2025-05-31 13:38 | Outpatient (CLI) | payer OTHER, SELFPAY ==
--- OUTSIDE RECORDS SUMMARY | 2025-05-31 13:56 | XMS_ITS | Data Portability ---
Author Organization [place] - [facility] & L[facility] ADMIN Address [address] [place] [id number] Care Team Providers Care Dyer Helper Name Role Phone ОЛЕГ REED Family Medicine [...] 08/05/2024 08/05/2024 Follow up in 4 weeks. [email or web address] Not available 08/08/2024 14:52:23 09/01/2024 09/01/2024 CT findings 08/17 found a 4 mm hypodense lesion on the liver as well as a nodule in the lung. PCP is following up with chest CT. No acute intra-abdominal abnormalities or specific etiology to account for lower abdominal pain. [email or web address] Not available 09/01/2024 09:36:21 Plan of Treatment Reminders Order Date Submit Date Provider Last Modified By Organization Details Last Modified Time Details Appointments None recorded. Lab celiac disease serology panel, serum 2024 025 [facility] ([facility], [address] [facility], [place], [address], 16:10:15 CBC w/ auto diff 2024 025 [facility] ([facility], [address] [place], [address], 5 16:10:16 CMP, serum or plasma 2024 025 [facility] ([place]), [address] [place], [address], 5 16:10:17 C reactive protein, QN, serum or plasma 2024 025 [facility] ([place]), [address] [place], [address], 5 16:10:19 gastrointes tinal pathogens DNA + RNA panel, LUDY+non-pro be, stool 2024 025 [facility] ([place]), [address] [place], [address], 5 11:08:46 calprotecti n, stool 2024 025 [facility] ([place]), [address] [place], [address], 5 11:08:51 pancreatic elastase, quant, stool 2024 025 [facility] ([place]), [address] [place], [address], 5 11:08:50 O&P (ova & parasites), stool 2024 025 [facility] ([place]), [address] [place], [address], 5 11:08:54 H pylori Ag, qual immunoassay , stool [email or web address] ([place]), [address] [place], [address], 5 11:47:02 CMP, serum or plasma 11/2023 [facility] ([place]), [address] [facility], [place], [address], 4 14:15:29 CBC w/ auto diff 2023 024 [facility] ([place]), [address] [facility], [place], [address], 4 14:15:27 lipase, serum or plasma 2023 024 [facility] ([place]), [address] [facility], [place], [address], 4 14:15:34 urinalysis, dipstick 2023 ana [facility], [address], [place], [address], 4 14:19:03 ESR (erythrocyt e sedimentati on rate), blood 2023 024 [facility] ([place]), [address] [facility], [place], [address], 4 14:15:33 C reactive protein, QN, serum or plasma 2023 024 [facility] ([place]), [address] [facility], [place], [address], 4 14:15:35 rf (rheumatoid factor) + anti-ccp abs, serum 2023 024 [facility] ([place]), [address] [place], [address], 4 14:15:31 lipid panel, serum 2023 024 [facility] ([place]), [address] [place], [address], 4 14:15:30 lipid panel, serum 06/05/ 2024 06/05/2 024 [facility], [address], [address], [place], [address], 4 06:19:28 HbA1c (hemoglobin A1c), blood 2023 024 [facility], [address], [address], [place], [address], 4 06:19:29 CBC w/ auto diff 2023 024 [facility], [address], [address], [place], [address], 4 06:19:26 CMP, serum or plasma 2023 024 [facility], [address], [address], [place], [address], 4 06:19:27 Referral None recorded. Procedures None recorded. Surgeries None recorded. Imaging CT, abdomen + pelvis, w/ contrast 2023 024 [facility], [address], [address], [place], [address], 5 08:43:49 XR, elbow, 3 or more view 2023 024 [email or web address] [facility] ([facility]), [address], [place], [address], 4 17:16:44 Medication Orders atenolol 25 mg tablet 2023 024 [facility], [address] [place], [address], 4 14:19:27 Patient TargetsNo targets recorded. Patient Instructions Encounter Date Encounter Id Patient Instructions Last Modified By Organization Details Last Modified Time 09/01/2024 [id number] Follow up in 2 months or sooner if needed. [email or web address] Not available 09/01/2024 09:41:29 Reason for Referral None Reported. Results Created Date Observation Date Name Description Value Unit Range Abnormal Flag Note LastModifiedBy Organization Detail LastModifiedTime 12/23/19 24 12/24/2023 CBC WITH DIFFE RENTI AL/PL ATELE T WBC 7.0 x10e3 /uL 3.4-10 .8 Not Available [facility] ([facility]) [address] [facility], [place], [address], 12/24/2023 06:19:26 12/23/19 24 12/24/2023 CBC WITH DIFFE RENTI AL/PL ATELE T RBC 4.18 x10e6 /uL 3.77-5 .28 Not Available [facility] ([facility]) [address] [place], [address], 12/24/2023 06:19:26 12/23/19 24 12/24/2023 CBC WITH DIFFE RENTI AL/PL ATELE T hemoglobin 13.1 g/dL 11.1-1 5.9 Not Available [facility] ([facility]) [address] [facility], [place], [address], 12/24/2023 06:19:26 12/23/19 24 12/24/2023 CBC WITH DIFFE RENTI AL/PL ATELE T hematocrit 39.2 % 34.0-4 6.6 Not Available [facility] ([facility]) [address] [facility], [place], [address], 12/24/2023 06:19:26 12/23/19 24 12/24/2023 CBC WITH DIFFE RENTI AL/PL ATELE T MCV 94 fL 79-97 Not Available [facility] ([facility]) [address] [facility], [place], [address], 12/24/2023 06:19:26 12/23/19 24 12/24/2023 CBC WITH DIFFE RENTI AL/PL ATELE T MCH 31.3 pg 26.6-3 3.0 Not Available [facility] ([facility]) [address] [facility], [place], [address], 12/24/2023 06:19:26 12/23/19 24 12/24/2023 CBC WITH DIFFE RENTI AL/PL ATELE T MCHC 33.4 g/dL 31.5-3 5.7 Not Available [facility] ([facility]) [address] [facility], [place], [address], 12/24/2023 06:19:26 12/23/19 24 12/24/2023 CBC WITH DIFFE RENTI AL/PL ATELE T RDW 12.0 % 11.7-1 5.4 Not Available [facility] ([facility]) [address] [facility], [place], [address], 12/24/2023 06:19:26 12/23/19 24 12/24/2023 CBC WITH DIFFE RENTI AL/PL ATELE T platelets 418 x10e3 /uL 150-45 0 Not Available [facility] ([facility]) [address] [facility], [place], [address], 12/24/2023 06:19:26 12/23/19 24 12/24/2023 CBC WITH DIFFE RENTI AL/PL ATELE T neutrophils 57 % not estab. Not Available [facility] ([facility]) [address] [facility], [place], [address], 12/24/2023 06:19:26 12/23/19 24 12/24/2023 CBC WITH DIFFE RENTI AL/PL ATELE T lymphs 34 % not estab. Not Available [facility] ([facility]) [address] [facility], [place], [address], 12/24/2023 06:19:26 12/23/19 24 12/24/2023 CBC WITH DIFFE RENTI AL/PL ATELE T monocytes 8 % not estab. Not Available [facility] ([facility]) [address] [facility], [place], [address], 12/24/2023 06:19:26 12/23/19 24 12/24/2023 CBC WITH DIFFE RENTI AL/PL ATELE T eos 1 % not estab. Not Available [facility] ([facility]) [address] [place], [address], 12/24/2023 06:19:26 12/23/19 24 12/24/2023 CBC WITH DIFFE RENTI AL/PL ATELE T basos 0 % not estab. Not Available [facility] ([facility]) [address] [facility], [place], [address], 12/24/2023 06:19:26 12/23/19 24 12/24/2023 CBC WITH DIFFE RENTI AL/PL ATELE T immature cells [employer] Not Available [facility] ([facility]) [address] [place], [address], 12/24/2023 06:19:26 12/23/19 24 12/24/2023 CBC WITH DIFFE RENTI AL/PL ATELE T neutrophils (absolute) 4.0 x10e3 /uL 1.4-7. 0 Not Available [facility] ([facility]) [address] [place], [address], 12/24/2023 06:19:26 12/23/19 24 12/24/2023 CBC WITH DIFFE RENTI AL/PL ATELE T lymphs (absolute) 2.4 x10e3 /uL 0.7-3. 1 Not Available [facility] ([facility]) [address] [place], [address], 12/24/2023 06:19:26 12/23/19 24 12/24/2023 CBC WITH DIFFE RENTI AL/PL ATELE T monocytes(ab solute) 0.6 x10e3 /uL 0.1-0. 9 Not Available [facility] ([facility]) [address] [facility], [place], [address], 12/24/2023 06:19:26 12/23/19 24 12/24/2023 CBC WITH DIFFE RENTI AL/PL ATELE T eos (absolute) 0.1 x10e3 /uL 0.0-0. 4 Not Available [facility] ([facility]) [address] [facility], [place], [address], 12/24/2023 06:19:26 12/23/19 24 12/24/2023 CBC WITH DIFFE RENTI AL/PL ATELE T baso (absolute) 0.0 x10e3 /uL 0.0-0. 2 Not Available [facility] ([facility]) [address] [facility], [place], [address], 12/24/2023 06:19:26 12/23/19 24 12/24/2023 CBC WITH DIFFE RENTI AL/PL ATELE T immature granulocytes 0 % not estab. Not Available [facility] ([facility]) [address] [facility], [place], [address], 12/24/2023 06:19:26 12/23/19 24 12/24/2023 CBC WITH DIFFE RENTI AL/PL ATELE T immature grans (abs) 0.0 x10e3 /uL 0.0-0. 1 Not Available [facility] ([facility]) [address] [facility], [place], [address], 12/24/2023 06:19:26 12/23/19 24 12/24/2023 CBC WITH DIFFE RENTI AL/PL ATELE T NRBC [employer] Not Available [facility] ([facility]) [address] [facility], [place], [address], 12/24/2023 06:19:26 12/23/19 24 12/24/2023 CBC WITH DIFFE RENTI AL/PL ATELE T hematology comments: [employer] Not Available [facility] ([facility]) [address] [facility], [place], [address], 12/24/2023 06:19:26 12/23/19 24 12/24/2023 COMP. METAB OLIC PANEL (14) glucose 80 mg/dL 70-99 Not Available [facility] ([facility]) [address] [facility] [place], [address], 12/24/2023 06:19:27 12/23/19 24 12/24/2023 COMP. METAB OLIC PANEL (14) BUN 10 mg/dL 6-24 Not Available [facility] ([facility]) [address] [facility] [place], [address], 12/24/2023 06:19:27 12/23/19 24 12/24/2023 COMP. METAB OLIC PANEL (14) creatinine 0.73 mg/dL 0.57-1 .00 Not Available [facility] ([facility]) [address] [facility] [place], [address], 12/24/2023 06:19:27 12/23/19 24 12/24/2023 COMP. METAB OLIC PANEL (14) eGFR 105 mL/mi n/1.7 3 >59 Not Available [facility] ([facility]) [address] [facility] [place], [address], 12/24/2023 06:19:27 12/23/19 24 12/24/2023 COMP. METAB OLIC PANEL (14) BUN/creatini ne ratio 14 9-23 Not Available [facility] ([facility]) [address] [facility] [place], [address], 12/24/2023 06:19:27 12/23/19 24 12/24/2023 COMP. METAB OLIC PANEL (14) sodium 137 mmol/ L 134-14 4 Not Available [facility] ([facility]) [address] [facility] [place], [address], 12/24/2023 06:19:27 12/23/19 24 12/24/2023 COMP. METAB OLIC PANEL (14) potassium 4.8 mmol/ L 3.5-5. 2 Not Available [facility] ([facility]) [address] [place], [address], 12/24/2023 06:19:27 12/23/19 24 12/24/2023 COMP. METAB OLIC PANEL (14) chloride 102 mmol/ L 96-106 Not Available [facility] ([facility]) [address] [facility] [place], [address], 12/24/2023 06:19:27 12/23/19 24 12/24/2023 COMP. METAB OLIC PANEL (14) carbon dioxide, total 20 mmol/ L 20-29 Not Available [facility] ([facility]) [address] [facility], [place], [address], 12/24/2023 06:19:27 12/23/19 24 12/24/2023 COMP. METAB OLIC PANEL (14) calcium 10.0 mg/dL 8.7-10 .2 Not Available [facility] ([facility]) [address] [place], [address], 12/24/2023 06:19:27 12/23/19 24 12/24/2023 COMP. METAB OLIC PANEL (14) protein, total 7.5 g/dL 6.0-8. 5 Not Available [facility] ([facility]) [address] [place], [address], 12/24/2023 06:19:27 12/23/19 24 12/24/2023 COMP. METAB OLIC PANEL (14) albumin 4.6 g/dL 3.9-4. 9 Not Available [facility] ([facility]) [address] [place], [address], 12/24/2023 06:19:27 12/23/19 24 12/24/2023 COMP. METAB OLIC PANEL (14) globulin, total 2.9 g/dL 1.5-4. 5 Not Available [facility] ([facility]) [address] [facility] [place], [address], 12/24/2023 06:19:27 12/23/19 24 12/24/2023 COMP. METAB OLIC PANEL (14) A/G ratio 1.6 1.2-2. 2 Not Available [facility] ([facility]) [address] [facility] [place], [address], 12/24/2023 06:19:27 12/23/19 24 12/24/2023 COMP. METAB OLIC PANEL (14) bilirubin, total 0.7 mg/dL 0.0-1. 2 Not Available [facility] ([facility] [address] [facility] [place], [address], 12/24/2023 06:19:27 12/23/19 24 12/24/2023 COMP. METAB OLIC PANEL (14) alkaline phosphatase 49 IU/L 44-121 Not Available [facility] ([facility]) [address] [facility] [place], [address], 12/24/2023 06:19:27 12/23/19 24 12/24/2023 COMP. METAB OLIC PANEL (14) AST (SGOT) 17 IU/L 0-40 Not Available [facility] ([facility]) [address] [facility] [place], [address], 12/24/2023 06:19:27 12/23/19 24 12/24/2023 COMP. METAB OLIC PANEL (14) ALT (SGPT) 26 IU/L 0-32 Not Available [facility] ([facility]) [address] [facility] [place], [address], 12/24/2023 06:19:27 12/23/19 24 12/24/2023 LIPID PANEL cholesterol, total 201 mg/dL 100-19 9 above high normal Not Available [facility] ([facility]) [address] [facility] [place], [address], 12/24/2023 06:19:28 12/23/19 24 12/24/2023 LIPID PANEL triglyceride s 58 mg/dL 0-149 Not Available [facility] ([facility]) [address] [facility] [place], [address], 12/24/2023 06:19:28 12/23/19 24 12/24/2023 LIPID PANEL HDL cholesterol 79 mg/dL >39 Not Available [facility] ([facility]) [address] [facility] [place], [address], 12/24/2023 06:19:28 12/23/19 24 12/24/2023 LIPID PANEL VLDL cholesterol vickie 11 mg/dL 5-40 Not Available [facility] ([facility]) [address] [facility] [place], [address], 12/24/2023 06:19:28 12/23/19 24 12/24/2023 LIPID PANEL LDL chol calc ([facility]) 111 mg/dL 0-99 above high normal Not Available [facility] ([facility]) [address] [facility] [place], [address], 12/24/2023 06:19:28 12/23/19 24 12/24/2023 LIPID PANEL comment: [employer] Not Available [facility] ([facility]) [address] [facility], [place], [address], 12/24/2023 06:19:28 12/23/19 24 12/24/2023 HEMOG LOBIN A1C hemoglobin A1C 5.3 % 4.8-5. 6 Predi abete s: 5.7 - 6.4 Diabe jessa: >6.4 Glyce isidro contr ol for adult s with diabe jessa: <7.0 Not Available [facility] ([facility]) [address] [place], [address], 12/24/2023 06:19:29 06/02/20 24 06/03/2024 CBC WITH DIFFE RENTI AL/PL ATELE T WBC 8.0 x10e3 /uL 3.4-10 .8 normal Not Available [facility] ([facility]) [address] [facility], [place], [address], 06/03/2024 14:15:27 06/02/20 24 06/03/2024 CBC WITH DIFFE RENTI AL/PL ATELE T RBC 4.19 x10e6 /uL 3.77-5 .28 normal Not Available [facility] ([facility]) [address] [place], [address], 06/03/2024 14:15:27 06/02/20 24 06/03/2024 CBC WITH DIFFE RENTI AL/PL ATELE T hemoglobin 13.3 g/dL 11.1-1 5.9 normal Not Available [facility] ([facility]) [address] [place], [address], 06/03/2024 14:15:27 06/02/20 24 06/03/2024 CBC WITH DIFFE RENTI AL/PL ATELE T hematocrit 40.4 % 34.0-4 6.6 normal Not Available [facility] ([facility]) [address] [facility], [place], [address], 06/03/2024 14:15:27 06/02/20 24 06/03/2024 CBC WITH DIFFE RENTI AL/PL ATELE T MCV 96 fL 79-97 normal Not Available [facility] ([facility]) [address] [place], [address], 06/03/2024 14:15:27 06/02/20 24 06/03/2024 CBC WITH DIFFE RENTI AL/PL ATELE T MCH 31.7 pg 26.6-3 3.0 normal Not Available [facility] ([facility]) [address] [place], [address], 06/03/2024 14:15:27 06/02/20 24 06/03/2024 CBC WITH DIFFE RENTI AL/PL ATELE T MCHC 32.9 g/dL 31.5-3 5.7 normal Not Available [facility] ([facility]) [address] [facility], [place], [address], 06/03/2024 14:15:27 06/02/20 24 06/03/2024 CBC WITH DIFFE RENTI AL/PL ATELE T RDW 11.7 % 11.7-1 5.4 Not Available [facility] ([facility]) [address] [facility], [place], [address], 06/03/2024 14:15:27 06/02/20 24 06/03/2024 CBC WITH DIFFE RENTI AL/PL ATELE T platelets 356 x10e3 /uL 150-45 0 normal Not Available [facility] ([facility]) [address] [facility], [place], [address], 06/03/2024 14:15:27 06/02/20 24 06/03/2024 CBC WITH DIFFE RENTI AL/PL ATELE T neutrophils 62 % not estab. normal Not Available [facility] ([facility]) [address] [facility], [place], [address], 06/03/2024 14:15:27 06/02/20 24 06/03/2024 CBC WITH DIFFE RENTI AL/PL ATELE T lymphs 29 % not estab. normal Not Available [facility] ([facility]) [address] [facility], [place], [address], 06/03/2024 14:15:27 06/02/20 24 06/03/2024 CBC WITH DIFFE RENTI AL/PL ATELE T monocytes 8 % not estab. normal Not Available [facility] ([facility]) [address] [facility], [place], [address], 06/03/2024 14:15:27 06/02/20 24 06/03/2024 CBC WITH DIFFE RENTI AL/PL ATELE T eos 1 % not estab. normal Not Available [facility] ([facility]) [address] [facility], [place], [address], 06/03/2024 14:15:27 06/02/20 24 06/03/2024 CBC WITH DIFFE RENTI AL/PL ATELE T basos 0 % not estab. normal Not Available [facility] ([facility]) [address] [facility], [place], [address], 06/03/2024 14:15:27 06/02/20 24 06/03/2024 CBC WITH DIFFE RENTI AL/PL ATELE T immature cells [employer] Not Available [facility] ([facility]) [address] [facility], [place], [address], 06/03/2024 14:15:27 06/02/20 24 06/03/2024 CBC WITH DIFFE RENTI AL/PL ATELE T neutrophils (absolute) 4.9 x10e3 /uL 1.4-7. 0 normal Not Available [facility] ([facility]) [address] [place], [address], 06/03/2024 14:15:27 06/02/20 24 06/03/2024 CBC WITH DIFFE RENTI AL/PL ATELE T lymphs (absolute) 2.3 x10e3 /uL 0.7-3. 1 normal Not Available [facility] ([facility]) [address] [place], [address], 06/03/2024 14:15:27 06/02/20 24 06/03/2024 CBC WITH DIFFE RENTI AL/PL ATELE T monocytes(ab solute) 0.7 x10e3 /uL 0.1-0. 9 normal Not Available [facility] ([facility]) [address] [place], [address], 06/03/2024 14:15:27 06/02/20 24 06/03/2024 CBC WITH DIFFE RENTI AL/PL ATELE T eos (absolute) 0.1 x10e3 /uL 0.0-0. 4 normal Not Available [facility] ([facility]) [address] [facility], [place], [address], 06/03/2024 14:15:27 06/02/20 24 06/03/2024 CBC WITH DIFFE RENTI AL/PL ATELE T baso (absolute) 0.0 x10e3 /uL 0.0-0. 2 normal Not Available [facility] ([facility]) [address] [facility], [place], [address], 06/03/2024 14:15:27 06/02/20 24 06/03/2024 CBC WITH DIFFE RENTI AL/PL ATELE T immature granulocytes 0 % not estab. Not Available [facility] ([facility]) [address] [facility], [place], [address], 06/03/2024 14:15:27 06/02/20 24 06/03/2024 CBC WITH DIFFE RENTI AL/PL ATELE T immature grans (abs) 0.0 x10e3 /uL 0.0-0. 1 Not Available [facility] ([facility]) [address] [facility], [place], [address], 06/03/2024 14:15:27 06/02/20 24 06/03/2024 CBC WITH DIFFE RENTI AL/PL ATELE T NRBC [employer] Not Available [facility] ([facility]) [address] [facility], [place], [address], 06/03/2024 14:15:27 06/02/20 24 06/03/2024 CBC WITH DIFFE RENTI AL/PL ATELE T hematology comments: [employer] Not Available [facility] ([facility]) [address] [facility], [place], [address], 06/03/2024 14:15:27 06/02/20 24 06/03/2024 COMP. METAB OLIC PANEL (14) glucose 83 mg/dL 70-99 normal Not Available [facility] ([facility]) [address] [facility] [place], [address], 06/03/2024 14:15:29 06/02/20 24 06/03/2024 COMP. METAB OLIC PANEL (14) BUN 13 mg/dL 6-24 normal Not Available [facility] ([facility]) [address] [facility] [place], [address], 06/03/2024 14:15:29 06/02/20 24 06/03/2024 COMP. METAB OLIC PANEL (14) creatinine 0.74 mg/dL 0.57-1 .00 normal Not Available [facility] ([facility]) [address] [facility], [place], [address], 06/03/2024 14:15:29 06/02/20 24 06/03/2024 COMP. METAB OLIC PANEL (14) eGFR 103 mL/mi n/1.7 3 >59 normal Not Available [facility] ([facility]) [address] [facility] [place], [address], 06/03/2024 14:15:29 06/02/20 24 06/03/2024 COMP. METAB OLIC PANEL (14) BUN/creatini ne ratio 18 9-23 normal Not Available [facility] ([facility]) [address] [place], [address], 06/03/2024 14:15:29 06/02/20 24 06/03/2024 COMP. METAB OLIC PANEL (14) sodium 136 mmol/ L 134-14 4 normal Not Available [facility] ([facility]) [address] [place], [address], 06/03/2024 14:15:29 06/02/20 24 06/03/2024 COMP. METAB OLIC PANEL (14) potassium 4.5 mmol/ L 3.5-5. 2 normal Not Available [facility] ([facility]) [address] [place], [address], 06/03/2024 14:15:29 06/02/20 24 06/03/2024 COMP. METAB OLIC PANEL (14) chloride 102 mmol/ L 96-106 normal Not Available [facility] ([facility]) [address] [place], [address], 06/03/2024 14:15:29 06/02/20 24 06/03/2024 COMP. METAB OLIC PANEL (14) carbon dioxide, total 25 mmol/ L 20-29 normal Not Available [facility] ([facility]) [address] [place], [address], 06/03/2024 14:15:29 06/02/20 24 06/03/2024 COMP. METAB OLIC PANEL (14) calcium 10.1 mg/dL 8.7-10 .2 normal Not Available [facility] ([facility]) [address] [place], [address], 06/03/2024 14:15:29 06/02/20 24 06/03/2024 COMP. METAB OLIC PANEL (14) protein, total 7.5 g/dL 6.0-8. 5 normal Not Available [facility] ([facility]) [address] [place], [address], 06/03/2024 14:15:29 06/02/20 24 06/03/2024 COMP. METAB OLIC PANEL (14) albumin 4.5 g/dL 3.9-4. 9 normal Not Available [facility] ([facility]) [address] [place], [address], 06/03/2024 14:15:29 06/02/20 24 06/03/2024 COMP. METAB OLIC PANEL (14) globulin, total 3.0 g/dL 1.5-4. 5 Not Available [facility] ([facility]) [address], [place], [address], 06/03/2024 14:15:29 06/02/20 24 06/03/2024 COMP. METAB OLIC PANEL (14) bilirubin, total 0.8 mg/dL 0.0-1. 2 normal Not Available [facility] ([facility]) [address] [place], [address], 06/03/2024 14:15:29 06/02/20 24 06/03/2024 COMP. METAB OLIC PANEL (14) alkaline phosphatase 46 IU/L 44-121 normal Not Available [facility] ([facility]) [address] [place], [address], 06/03/2024 14:15:29 06/02/20 24 06/03/2024 COMP. METAB OLIC PANEL (14) AST (SGOT) 16 IU/L 0-40 normal Not Available [facility] ([facility]) [address] [place], [address], 06/03/2024 14:15:29 06/02/20 24 06/03/2024 COMP. METAB OLIC PANEL (14) ALT (SGPT) 14 IU/L 0-32 normal Not Available [facility] ([facility]) [address] [place], [address], 06/03/2024 14:15:29 06/02/20 24 06/03/2024 LIPID PANEL cholesterol, total 191 mg/dL 100-19 9 normal Not Available [facility] ([facility]) [address] [place], [address], 06/03/2024 14:15:30 06/02/20 24 06/03/2024 LIPID PANEL triglyceride s 56 mg/dL 0-149 normal Not Available [facility] ([facility]) [address] [place], [address], 06/03/2024 14:15:30 06/02/20 24 06/03/2024 LIPID PANEL HDL cholesterol 67 mg/dL >39 normal Not Available [facility] ([facility]) [address] [place], [address], 06/03/2024 14:15:30 06/02/20 24 06/03/2024 LIPID PANEL VLDL cholesterol vickie 11 mg/dL 5-40 Not Available [facility] ([facility]) [address] [place], [address], 06/03/2024 14:15:30 06/02/20 24 06/03/2024 LIPID PANEL LDL chol calc ([facility]) 113 mg/dL 0-99 above high normal Not Available [facility] ([facility]) [address] [place], [address], 06/03/2024 14:15:30 06/02/20 24 06/03/2024 LIPID PANEL LDL calc comment: [employer] Not Available [facility] ([facility]) [address] [place], [address], 06/03/2024 14:15:30 06/02/20 24 06/03/2024 RHEUM ATOID ARTHR ITIS PROFI LE rheumatoid factor (rf) <10.0 IU/mL <14.0 Not Available [facility] ([facility]) [address] [place], [address], 06/03/2024 14:15:31 06/02/20 24 06/03/2024 RHEUM ATOID ARTHR ITIS PROFI LE anti-ccp Ab, IgG/IgA 13 units 0-19 Negat stanley <20 Weak posit stanley 20 - 39 Moder ate posit stanley 40 - 59 Stron g posit stanley >59 Not Available [facility] ([facility]) [address] [place], [address], 06/03/2024 14:15:31 06/02/20 24 06/03/2024 SEDIM ENTAT ION RATE- WESTE RGREN sedimentatio n rate-westerg jose david 2 mm/HR 0-32 normal Not Available [facility] ([facility]) [address] [facility], [place], [address], 06/03/2024 14:15:33 06/02/20 24 06/03/2024 LIPAS E lipase 48 U/L 14-72 normal Not Available [facility] ([facility]) [address] [facility], [place], [address], 06/03/2024 14:15:34 06/02/20 24 06/03/2024 C-ROSALIA CTIVE PROTE IN, QUANT C-reactive protein, quant <1 mg/L 0-10 Not Available [facility] ([facility]) [address] [facility], [place], [address], 06/03/2024 14:15:35 06/02/20 24 06/02/2024 urina lysis , dipst ick Leukocytes (reference range) negati ve Not Available [address], [place], [address], 06/02/2024 13:52:11 06/02/20 24 06/02/2024 urina lysis , dipst ick Nitrite (reference range:) negati ve Not Available [address], [place], [address], 06/02/2024 13:52:11 06/02/20 24 06/02/2024 urina lysis , dipst ick Urobilinogen (reference range) 0.2 Not Available [address], [place], [address], 06/02/2024 13:52:11 06/02/20 24 06/02/2024 urina lysis , dipst ick Protein (reference range) negati ve Not Available [address], [place], [address], 06/02/2024 13:52:11 06/02/20 24 06/02/2024 urina lysis , dipst ick pH (reference range 5-8.5) 5.5 Not Available [facility] [address], [place], [address], 06/02/2024 13:52:11 06/02/20 24 06/02/2024 urina lysis , dipst ick Blood (reference range:) negati ve Not Available [facility] [address] [facility] [address], [place], [address], 06/02/2024 13:52:11 06/02/20 24 06/02/2024 urina lysis , dipst ick Specific [place] (reference range) 1.025 Not Available [facility] [address], [place], [address], 06/02/2024 13:52:11 06/02/20 24 06/02/2024 urina lysis , dipst ick Ketone (reference range) modera te Not Available [facility] [address] [facility] [address], [place], [address], 06/02/2024 13:52:11 06/02/20 24 06/02/2024 urina lysis , dipst ick Bilirubin (reference range) negati ve Not Available [facility] [address] [facility] [address], [place], [address], 06/02/2024 13:52:11 06/02/20 24 06/02/2024 urina lysis , dipst ick Glucose (reference range) negati ve Not Available [facility] [address] [facility] [address], [place], [address], 06/02/2024 13:52:11 06/02/20 24 06/02/2024 urina lysis , dipst ick Color (reference range: yellow-brown ) Yellow Not Available [facility] [address], [place], [address], 06/02/2024 13:52:11 08/05/19 25 08/06/2024 STEPHANIE C [...] tive enter opath y. Not Available [facility] ([facility]) [address] [facility], [place], [address], 08/08/2024 16:10:15 08/05/19 25 08/06/2024 STEPHANIE C DISEA SE PANEL immunoglobul in A, qn, serum 286 mg/dL 87-352 normal Not Available [facility] ([facility]) [address] [place], [address], 08/08/2024 16:10:15 08/05/19 25 08/08/2024 STEPHANIE C DISEA SE PANEL endomysial antibody IgA NEGATI VE negati ve Not Available [facility] ([facility]) [address] [place], [address], 08/08/2024 16:10:15 08/05/19 25 08/06/2024 CBC WITH DIFFE RENTI AL/PL ATELE T WBC 6.0 x10e3 /uL 3.4-10 .8 normal Not Available [facility] ([facility]) [address] [place], [address], 08/08/2024 16:10:16 08/05/19 25 08/06/2024 CBC WITH DIFFE RENTI AL/PL ATELE T RBC 4.34 x10e6 /uL 3.77-5 .28 normal Not Available [facility] ([facility]) [address] [facility], [place], [address], 08/08/2024 16:10:16 08/05/19 25 08/06/2024 CBC WITH DIFFE RENTI AL/PL ATELE T hemoglobin 13.5 g/dL 11.1-1 5.9 normal Not Available [facility] ([facility]) [address] [place], [address], 08/08/2024 16:10:16 08/05/19 25 08/06/2024 CBC WITH DIFFE RENTI AL/PL ATELE T hematocrit 40.4 % 34.0-4 6.6 normal Not Available [facility] ([facility]) [address] [place], [address], 08/08/2024 16:10:16 08/05/19 25 08/06/2024 CBC WITH DIFFE RENTI AL/PL ATELE T MCV 93 fL 79-97 normal Not Available [facility] ([facility]) [address] [place], [address], 08/08/2024 16:10:16 08/05/19 25 08/06/2024 CBC WITH DIFFE RENTI AL/PL ATELE T MCH 31.1 pg 26.6-3 3.0 normal Not Available [facility] ([facility]) [address] [place], [address], 08/08/2024 16:10:16 08/05/19 25 08/06/2024 CBC WITH DIFFE RENTI AL/PL ATELE T MCHC 33.4 g/dL 31.5-3 5.7 normal Not Available [facility] ([facility]) [address] [facility], [address], 08/08/2024 16:10:16 08/05/19 25 08/06/2024 CBC WITH DIFFE RENTI AL/PL ATELE T RDW 11.7 % 11.7-1 5.4 Not Available [facility] ([facility]) [address] [facility], [place], [address], 08/08/2024 16:10:16 08/05/19 25 08/06/2024 CBC WITH DIFFE RENTI AL/PL ATELE T platelets 468 x10e3 /uL 150-45 0 above high normal Not Available [facility] ([facility]) [address] [facility], [place], [address], 08/08/2024 16:10:16 08/05/19 25 08/06/2024 CBC WITH DIFFE RENTI AL/PL ATELE T neutrophils 56 % not estab. normal Not Available [facility] ([facility]) [address] [facility], [place], [address], 08/08/2024 16:10:16 08/05/19 25 08/06/2024 CBC WITH DIFFE RENTI AL/PL ATELE T lymphs 33 % not estab. normal Not Available [facility] ([facility]) [address] [facility], [place], [address], 08/08/2024 16:10:16 08/05/19 25 08/06/2024 CBC WITH DIFFE RENTI AL/PL ATELE T monocytes 9 % not estab. normal Not Available [facility] ([facility]) [address] [facility], [place], [address], 08/08/2024 16:10:16 08/05/19 25 08/06/2024 CBC WITH DIFFE RENTI AL/PL ATELE T eos 2 % not estab. normal Not Available [facility] ([facility]) [address] [facility], [place], [address], 08/08/2024 16:10:16 08/05/19 25 08/06/2024 CBC WITH DIFFE RENTI AL/PL ATELE T basos 0 % not estab. normal Not Available [facility] ([facility]) [address] [facility], [place], [address], 08/08/2024 16:10:16 08/05/19 25 08/06/2024 CBC WITH DIFFE RENTI AL/PL ATELE T immature cells [employer] Not Available [facility] ([facility]) [address] [place], [address], 08/08/2024 16:10:16 08/05/19 25 08/06/2024 CBC WITH DIFFE RENTI AL/PL ATELE T neutrophils (absolute) 3.3 x10e3 /uL 1.4-7. 0 normal Not Available [facility] ([facility]) [address] [place], [address], 08/08/2024 16:10:16 08/05/19 25 08/06/2024 CBC WITH DIFFE RENTI AL/PL ATELE T lymphs (absolute) 2.0 x10e3 /uL 0.7-3. 1 normal Not Available [facility] ([facility]) [address] [place], [address], 08/08/2024 16:10:16 08/05/19 25 08/06/2024 CBC WITH DIFFE RENTI AL/PL ATELE T monocytes(ab solute) 0.6 x10e3 /uL 0.1-0. 9 normal Not Available [facility] ([facility]) [address] [place], [address], 08/08/2024 16:10:16 08/05/19 25 08/06/2024 CBC WITH DIFFE RENTI AL/PL ATELE T eos (absolute) 0.1 x10e3 /uL 0.0-0. 4 normal Not Available [facility] ([facility]) [address] [place], [address], 08/08/2024 16:10:16 08/05/19 25 08/06/2024 CBC WITH DIFFE RENTI AL/PL ATELE T baso (absolute) 0.0 x10e3 /uL 0.0-0. 2 normal Not Available [facility] ([facility]) [address] [facility], [place], [address], 08/08/2024 16:10:16 08/05/19 25 08/06/2024 CBC WITH DIFFE RENTI AL/PL ATELE T immature granulocytes 0 % not estab. Not Available [facility] ([facility]) [address] [facility], [place], [address], 08/08/2024 16:10:16 08/05/19 25 08/06/2024 CBC WITH DIFFE RENTI AL/PL ATELE T immature grans (abs) 0.0 x10e3 /uL 0.0-0. 1 Not Available [facility] ([facility]) [address] [facility], [place], [address], 08/08/2024 16:10:16 08/05/19 25 08/06/2024 CBC WITH DIFFE RENTI AL/PL ATELE T NRBC [employer] Not Available [facility] ([facility]) [address] [facility], [place], [address], 08/08/2024 16:10:16 08/05/19 25 08/06/2024 CBC WITH DIFFE RENTI AL/PL ATELE T hematology comments: [employer] Not Available [facility] ([facility]) [address] [facility], [place], [address], 08/08/2024 16:10:16 08/05/19 25 08/06/2024 COMP. METAB OLIC PANEL (14) glucose 80 mg/dL 70-99 normal Not Available [facility] ([facility]) [address] [facility], [place], [address], 08/08/2024 16:10:17 08/05/19 25 08/06/2024 COMP. METAB OLIC PANEL (14) BUN 13 mg/dL 6-24 normal Not Available [facility] ([facility]) [address] [facility] [place], [address], 08/08/2024 16:10:17 08/05/19 25 08/06/2024 COMP. METAB OLIC PANEL (14) creatinine 0.80 mg/dL 0.57-1 .00 normal Not Available [facility] ([facility]) [address] [facility] [place], [address], 08/08/2024 16:10:17 08/05/19 25 08/06/2024 COMP. METAB OLIC PANEL (14) eGFR 94 mL/mi n/1.7 3 >59 normal Not Available [facility] ([facility]) [address] [facility] [place], [address], 08/08/2024 16:10:17 08/05/19 25 08/06/2024 COMP. METAB OLIC PANEL (14) BUN/creatini ne ratio 16 9-23 normal Not Available [facility] ([facility]) [address] [facility], [place], [address], 08/08/2024 16:10:17 08/05/19 25 08/06/2024 COMP. METAB OLIC PANEL (14) sodium 138 mmol/ L 134-14 4 normal Not Available [facility] ([facility]) [address] [facility] [place], [address], 08/08/2024 16:10:17 08/05/19 25 08/06/2024 COMP. METAB OLIC PANEL (14) potassium 4.5 mmol/ L 3.5-5. 2 normal Not Available [facility] ([facility]) [address] [facility] [place], [address], 08/08/2024 16:10:17 08/05/19 25 08/06/2024 COMP. METAB OLIC PANEL (14) chloride 101 mmol/ L 96-106 normal Not Available [facility] ([facility]) [address] [facility] [place], [address], 08/08/2024 16:10:17 08/05/19 25 08/06/2024 COMP. METAB OLIC PANEL (14) carbon dioxide, total 22 mmol/ L 20-29 normal Not Available [facility] ([facility]) [address] [facility] [place], [address], 08/08/2024 16:10:17 08/05/19 25 08/06/2024 COMP. METAB OLIC PANEL (14) calcium 9.9 mg/dL 8.7-10 .2 normal Not Available [facility] ([facility]) [address] [facility] [place], [address], 08/08/2024 16:10:17 08/05/19 25 08/06/2024 COMP. METAB OLIC PANEL (14) protein, total 7.4 g/dL 6.0-8. 5 normal Not Available [facility] ([facility]) [address] [facility] [place], [address], 08/08/2024 16:10:17 08/05/19 25 08/06/2024 COMP. METAB OLIC PANEL (14) albumin 4.5 g/dL 3.9-4. 9 normal Not Available [facility] ([facility]) [address] [facility] [place], [address], 08/08/2024 16:10:17 08/05/19 25 08/06/2024 COMP. METAB OLIC PANEL (14) globulin, total 2.9 g/dL 1.5-4. 5 Not Available [facility] ([facility]) [address] [facility] [place], [address], 08/08/2024 16:10:17 08/05/19 25 08/06/2024 COMP. METAB OLIC PANEL (14) bilirubin, total 0.5 mg/dL 0.0-1. 2 normal Not Available [facility] ([facility]) [address] [place], [address], 08/08/2024 16:10:17 08/05/19 25 08/06/2024 COMP. METAB OLIC PANEL (14) alkaline phosphatase 46 IU/L 44-121 normal Not Available [facility] ([facility]) [address] [place], [address], 08/08/2024 16:10:17 08/05/19 25 08/06/2024 COMP. METAB OLIC PANEL (14) AST (SGOT) 15 IU/L 0-40 normal Not Available [facility] ([facility]) [address] [place], [address], 08/08/2024 16:10:17 08/05/19 25 08/06/2024 COMP. METAB OLIC PANEL (14) ALT (SGPT) 14 IU/L 0-32 normal Not Available [facility] ([facility]) [address] [place], [address], 08/08/2024 16:10:17 08/05/19 25 08/06/2024 C-ROSALIA CTIVE PROTE IN, QUANT C-reactive protein, quant <1 mg/L 0-10 Not Available [facility] ([facility]) [address] [place], [address], 08/08/2024 16:10:19 08/05/19 25 08/18/2024 SPECI MEN STATU S REPOR T specimen status report COMMEN T Test not perfo rmed due to the age of this speci men. TEST: [id number] H. pylor i Stool Ag, EIA Not Available [facility] ([facility]) [address] [place], [address], 08/22/2024 11:08:56 08/05/19 25 08/18/2024 GI PROFI LE, STOOL , PCR campylobacte r COMMEN T Test not perfo rmed due to the age of this speci men. Not Available [facility] ([facility]) [address] [place], [address], 08/22/2024 11:08:46 08/05/19 25 08/18/2024 GI PROFI LE, STOOL , PCR C difficile toxin A/B TNP Test not perfo rmed Not Available [facility] ([facility]) [address] [place], [address], 08/22/2024 11:08:46 08/05/19 25 08/18/2024 GI PROFI LE, STOOL , PCR plesiomonas shigelloides TNP Test not perfo rmed Not Available [facility] ([facility]) [address] [place], [address], 08/22/2024 11:08:46 08/05/19 25 08/18/2024 GI PROFI LE, STOOL , PCR salmonella TNP Test not perfo rmed Not Available [facility] ([facility]) [address] [place], [address], 08/22/2024 11:08:46 08/05/19 25 08/18/2024 GI PROFI LE, STOOL , PCR vibrio TNP Test not perfo rmed Not Available [facility] ([facility]) [address] [place], [address], 08/22/2024 11:08:46 08/05/19 25 08/18/2024 GI PROFI LE, STOOL , PCR vibrio cholerae TNP Test not perfo rmed Not Available [facility] ([facility]) [address] [place], [address], 08/22/2024 11:08:46 08/05/19 25 08/18/2024 GI PROFI LE, STOOL , PCR yersinia enterocoliti ca TNP Test not perfo rmed Not Available [facility] ([facility]) [address] [place], [address], 08/22/2024 11:08:46 08/05/19 25 08/18/2024 GI PROFI LE, STOOL , PCR enteroaggreg ative E coli TNP Test not perfo rmed Not Available [facility] ([facility]) [address] [place], [address], 08/22/2024 11:08:46 08/05/19 25 08/18/2024 GI PROFI LE, STOOL , PCR enteropathog enic E coli TNP Test not perfo rmed Not Available [facility] ([facility]) [address] [place], [address], 08/22/2024 11:08:46 08/05/19 25 08/18/2024 GI PROFI LE, STOOL , PCR enterotoxige melina E coli TNP Test not perfo rmed Not Available [facility] ([facility]) [address] [place], [address], 08/22/2024 11:08:46 08/05/19 25 08/18/2024 GI PROFI LE, STOOL , PCR shiga-toxin- producing E coli TNP Test not perfo rmed Not Available [facility] ([facility]) [address] [place], [address], 08/22/2024 11:08:46 08/05/19 25 08/18/2024 GI PROFI LE, STOOL , PCR E coli O157 TNP Test not perfo rmed Not Available [facility] ([facility]) [address] [place], [address], 08/22/2024 11:08:46 08/05/19 25 08/18/2024 GI PROFI LE, STOOL , PCR shigella/ent eroinvasive E coli TNP Test not perfo rmed Not Available [facility] ([facility]) [address] [place], [address], 08/22/2024 11:08:46 08/05/19 25 08/18/2024 GI PROFI LE, STOOL , PCR cryptosporid ium TNP Test not perfo rmed Not Available [facility] ([facility]) [address] [place], [address], 08/22/2024 11:08:46 08/05/19 25 08/18/2024 GI PROFI LE, STOOL , PCR cyclospora cayetanensis TNP Test not perfo rmed Not Available [facility] ([facility]) [address] [place], [address], 08/22/2024 11:08:46 08/05/19 25 08/18/2024 GI PROFI LE, STOOL , PCR entamoeba histolytica TNP Test not perfo rmed Not Available [facility] ([facility]) [address] [place], [address], 08/22/2024 11:08:46 08/05/19 25 08/18/2024 GI PROFI LE, STOOL , PCR giardia lamblia TNP Test not perfo rmed Not Available [facility] ([facility]) [address] [place], [address], 08/22/2024 11:08:46 08/05/19 25 08/18/2024 GI PROFI LE, STOOL , PCR adenovirus F 40/41 TNP Test not perfo rmed Not Available [facility] ([facility]) [address] [place], [address], 08/22/2024 11:08:46 08/05/19 25 08/18/2024 GI PROFI LE, STOOL , PCR astrovirus TNP Test not perfo rmed Not Available [facility] ([facility]) [address] [place], [address], 08/22/2024 11:08:46 08/05/19 25 08/18/2024 GI PROFI LE, STOOL , PCR norovirus GI/gii TNP Test not perfo rmed Not Available [facility] ([facility]) [address] [facility], [place], [address], 08/22/2024 11:08:46 08/05/19 25 08/18/2024 GI PROFI LE, STOOL , PCR rotavirus A TNP Test not perfo rmed Not Available [facility] ([facility]) [address] [facility], [place], [address], 08/22/2024 11:08:46 08/05/19 25 08/18/2024 GI PROFI LE, STOOL , PCR sapovirus TNP Test not perfo rmed Not Available [facility] ([facility]) [address] [facility], [place], [address], 08/22/2024 11:08:46 08/05/19 25 08/18/2024 COMP. METAB OLIC PANEL (14) glucose COMMEN T mg/dL Test not perfo rmed. The requi red speci men for the test order ed was not recei blake. Not Available [facility] ([facility]) [address] [place], [address], 08/22/2024 11:08:48 08/05/19 25 08/18/2024 COMP. METAB OLIC PANEL (14) BUN TNP Test not perfo rmed Not Available [facility] ([facility]) [address] [place], [address], 08/22/2024 11:08:48 08/05/19 25 08/18/2024 COMP. METAB OLIC PANEL (14) creatinine TNP Test not perfo rmed Not Available [facility] ([facility]) [address] [place], [address], 08/22/2024 11:08:48 08/05/19 25 08/18/2024 COMP. METAB OLIC PANEL (14) eGFR [employer] Not Available [facility] ([facility]) [address], [place], [address], 08/22/2024 11:08:48 08/05/19 25 08/18/2024 COMP. METAB OLIC PANEL (14) BUN/creatini ne ratio [employer] Not Available [facility] ([facility]) [address], [place], [address], 08/22/2024 11:08:48 08/05/19 25 08/18/2024 COMP. METAB OLIC PANEL (14) sodium TNP Test not perfo rmed Not Available [facility] ([facility]) [address], [place], [address], 08/22/2024 11:08:48 08/05/19 25 08/18/2024 COMP. METAB OLIC PANEL (14) potassium TNP Test not perfo rmed Not Available [facility] ([facility]) [address], [place], [address], 08/22/2024 11:08:48 08/05/19 25 08/18/2024 COMP. METAB OLIC PANEL (14) chloride TNP Test not perfo rmed Not Available [facility] ([facility]) [address], [place], [address], 08/22/2024 11:08:48 08/05/19 25 08/18/2024 COMP. METAB OLIC PANEL (14) carbon dioxide, total TNP Test not perfo rmed Not Available [facility] ([facility]) [address], [place], [address], 08/22/2024 11:08:48 08/05/19 25 08/18/2024 COMP. METAB OLIC PANEL (14) calcium TNP Test not perfo rmed Not Available [facility] ([facility]) [address], [place], [address], 08/22/2024 11:08:48 08/05/19 25 08/18/2024 COMP. METAB OLIC PANEL (14) protein, total TNP Test not perfo rmed Not Available [facility] ([facility]) [address] [facility] [place], [address], 08/22/2024 11:08:48 08/05/19 25 08/18/2024 COMP. METAB OLIC PANEL (14) albumin TNP Test not perfo rmed Not Available [facility] ([facility]) [address], [place], [address], 08/22/2024 11:08:48 08/05/19 25 08/18/2024 COMP. METAB OLIC PANEL (14) globulin, total [employer] Not Available [facility] [facility]) [address] [facility], [place], [address], 08/22/2024 11:08:48 08/05/19 25 08/18/2024 COMP. METAB OLIC PANEL (14) A/G ratio BRAND MARKETING INTERN Not Available [facility] ([facility]) [address] [facility] [place], [address], 08/22/2024 11:08:48 08/05/19 25 08/18/2024 COMP. METAB OLIC PANEL (14) bilirubin, total TNP Test not perfo rmed Not Available [facility] ([facility]) [address] [facility] [place], [address], 08/22/2024 11:08:48 08/05/19 25 08/18/2024 COMP. METAB OLIC PANEL (14) alkaline phosphatase TNP Test not perfo rmed Not Available [facility] ([facility]) [address] [facility] [place], [address], 08/22/2024 11:08:48 08/05/19 25 08/18/2024 COMP. METAB OLIC PANEL (14) AST (SGOT) TNP Test not perfo rmed Not Available [facility] ([facility]) [address] [facility], [place], [address], 08/22/2024 11:08:48 08/05/19 25 08/18/2024 COMP. METAB OLIC PANEL (14) ALT (SGPT) TNP Test not perfo rmed Not Available [facility] ([facility]) [address] [place], [address], 08/22/2024 11:08:48 08/05/19 25 08/21/2024 PANCR EATIC ELAST ASE, FECAL pancreatic elastase, fecal >800 ug_el ast./ g >200 Sever e Pancr eatic Insuf ficie ncy: <100 Moder ate Pancr eatic Insuf ficie ncy: 100 - 200 Karina l: >200 Not Available [facility] ([facility]) [address] [place], [address], 08/22/2024 11:08:50 08/05/19 25 08/22/2024 CALPR OTECT IN, FECAL calprotectin , fecal 10 ug/g 0-120 Liana ntrat ion Inter preta tion Follo w-Up < 5 - 50 ug/g Karina l None >50 -120 ug/g Borde rline Re-ev aluat e in 4-6 weeks >120 ug/g Abnor mal Repea t as clini rio indic ated Not Available [facility] ([facility]) [address] [place], [address], 08/22/2024 11:08:51 08/05/19 25 08/18/[address] PROBL EM request problem COMMEN T Test not perfo rmed. The requi red speci men for the test order ed was not recei blake. TEST: 46401 2 Stephanie c Disea se Panel 52287 9 CBC With Diffe renti al/Pl atele t 22427 0 Comp. Metab olic Panel (14) 02658 7 C-Rosalia ctive Prote in, Quant Not Available [facility] ([facility]) [address] [place], [address], 08/22/2024 11:08:52 08/05/19 25 08/19/2024 OVA + JARROD ITE EXAM ova + parasite exam FINAL REPORT These resul ts were obtai nieves using wet prepa ratio n(s) and trich ayaan stain ed smear . This test does not inclu de testi ng for Crypt ospor idium parvu m, Cyclo spora , or Micro spori davey. Not Available [facility] ([facility]) [address] [facility], [place], [address], 08/22/2024 11:08:54 08/05/19 25 08/19/2024 OVA + JARROD ITE EXAM result 1 COMMEN T No ova, cysts , or jarrod ites seen. One negat stanley speci men does not rule out the possi bilit y of a jarrod itic infec tion. Not Available [facility] ([facility]) [address] [facility], [place], [address], 08/22/2024 11:08:54 08/05/19 25 08/18/[address] PROBL EM request problem COMMEN T Test not perfo rmed due to the age of this speci men. TEST: 39578 0 GI Profi le, Stool , PCR Not Available [facility] ([facility]) [address] [facility], [place], [address], 08/22/2024 11:08:55 08/05/19 25 08/18/2024 PLEAS E NOTE please note Commen t The date recor ded on the requi sitio n indic ates the sampl e(s) recei blake were great er than 72 hours old upon arriv al in our labor atory . Not Available [facility] ([facility]) [address] [facility], [place], [address], 08/22/2024 11:08:57 08/30/19 25 08/17/2024 imagi ng inter preta tion No observ ation record ed. [email or web address] [facility] (Scheduling) [address], [place], [address], 08/31/2024 08:45:49 08/30/1908/17/2024 US, trans vagin al No observ ation record ed. [email or web address] [facility] (Scheduling) [address], [place], [address], 09/12/2024 16:25:20 08/31/19 25 08/17/2024 CT, abdom en + pelvi s, w/ contr ast No observ ation record ed. KARMEN [facility] (Scheduling) [address], [place], [address], 08/31/2024 08:59:43 Result Notes None recorded. Problems Name Problem SNOMED Code Status Onset Date Resolution Date Notes Provider Name and Address Organization Details Recorded Time Stress 11036862 Active Jillian Urias null, [place] [facility] [place] 2 09:48:50 Essential hypertension 50344712 Active Jillian Uri[place] [facility] [place] 2 09:48:50 Mild anxiety 36080760 Active Jillian Urias null, [place] [facility] [place] 2 09:48:50 Problem Notes None recorded. Procedures Surgical History Date Name Laterality Status Provider Name and Address Organization Details Recorded Time 4 completed Alice [place] [facility] [place] 09/03/2023 10:22:14 4 Most Recent Mammogram completed Shital Maldon[place]ong [place] [facility] [place] 11/20/2023 11:34:19 3 Date of Last Pap Smear completed Aliceholly [place] [facility] [place] 09/03/2023 10:22:14 delivery completed Kerry Cuevas [place] [facility] [place] 03/31/2023 15:53:30 Imaging Results None recorded. Procedure [...] Updated DateTime 5 162.56 cm 24.1 kg/m2 27846.0 1 g 98.8 [degF] 98 % 98 % 71 /min 141/99 mm[Hg] Angie heck [place] [facility] [place] 5 09:14:53 Date Recorded Body height Body mass index (BMI) Body weight Body temperature Oxygen saturation Oxygen saturation in Arterial blood by Pulse oximetry Heart rate Heart rate Systolic And Diastolic Provider Name and Address Organization Details Last Updated DateTime 5 162.56 cm 23.7 kg/m2 03710.8 2 g 97.9 [degF] 99 % 99 % 65 /min 65 /min 135/98 mm[Hg] Ching Copeland [facility] & [place] 5 09:02:17 Date Recorded Body height Body mass index (BMI) Body weight Body temperature Oxygen saturation Oxygen saturation in Arterial blood by Pulse oximetry Heart rate Systolic And Diastolic Provider Name and Address Organization Details Last Updated DateTime 4 162.56 cm 22.8 kg/m2 86832.7 9 g 96.6 [degF] 100 % 100 % 59 /min 118/80 mm[Hg] [facility] & [place] 4 10:24:15 Date Recorded Body height Body mass index (BMI) Body weight Body temperature Oxygen saturation Oxygen saturation in Arterial blood by Pulse oximetry Heart rate Systolic And Diastolic Provider Name and Address Organization Details Last Updated DateTime 4 162.56 cm 23 kg/m2 99670.3 8 g 97.8 [degF] 99 % 99 % 51 /min 120/78 mm[Hg] Alice [facility] & [place] 4 13:24:16 Date Recorded Body height Body mass index (BMI) Body weight Body temperature Oxygen saturation Oxygen saturation in Arterial blood by Pulse oximetry Heart rate Systolic And Diastolic Provider Name and Address Organization Details Last Updated DateTime 4 162.56 cm 23.5 kg/m2 57812.1 5 g 98.2 [degF] 99 % 99 % 45 /min 108/64 mm[Hg] Alice [facility] & [place] 4 13:18:02 Social History Question Answer Notes LastModified by Organizat ion Details LastModified Time Tobacco Smoking Status Never Smoker Jillian Adonay [facility], [facility] & [place] 04/08/2022 09:52:03 Do You Have An Advance Directive? No [email or web address] Information not available 09/03/2023 If You Are , What Was Your Level Of Alcohol Consumption Prior To ? None [email or web address] Information not available 09/03/2023 Are You Blind Or Do You Have Difficulty Seeing? No [email or web address] Information not available 09/03/2023 What Is Your Level Of Caffeine Consumption? None [email or web address] Information not available 09/03/2023 What Was The Date Of Your Most Recent Tobacco Screening? 09/02/2023 [email or web address] Information not available 09/03/2023 Are You Passively Exposed To Smoke? No Information no t available 09/03/2023 How Much Tobacco Do You Smoke? No [email or web address] Information not available 09/03/2023 Has Tobacco Cessation Counseling Been Provided? No [email or web address] Information not available 09/03/2023 How Many Years Have You Smoked Tobacco? 0 [email or web address] Information not available 09/03/2023 Sex: Unknown Functional Status Question Answer Note LastModified by Organizat ion Details LastModified Time Do you use any illicit or recreational drugs? No [email or web address] Information not available 04/08/2022 Do you or have you ever used any other forms of tobacco or nicotine? No [email or web address] Information not available 09/03/2023 What is your level of alcohol consumption? Occasional [email or web address] Information not available 09/03/2023 Do you or have you ever used smokeless tobacco? Never used smokeless tobacco [email or web address] Information not available 09/03/2023 What is your exercise level? Moderate [email or web address] Information not available 09/03/2023 Mental Status Question Answer Note LastModified by Organization D etails LastModified Time Do you feel stressed (tense, restless, nervous, or anxious, or unable to sleep at night)? [id number] [email or web address] Information not available 09/03/2023 Family History Relationship [...] completed Kerry ramirez, [place] [facility] [place] 03/31/2023 14:51:54 COVID-19, mRNA, LNP-S, PF, 30 mcg/0.3 mL dose 10/31/2020 completed Kerry Raedi null, [place] [facility] [place] 03/31/2023 14:51:54 Past Encounters Encounter ID Performer Location Encounter Start Date Encounter Closed Date Diagnosis/Indication Diagnosis SNOMED-CT Code Diagnosis ICD10 Code Diagnosis IMO Codes Diagnosis Note [id number] Олег Villarreal MD [address] [place] [address] 04/08/2022 09:36:23 04/08/2022 10:47:21 Palpitations 52879227 R00.2 Essential hypertension 86103011 I10 Anxiety 87813601 F41.9 Acid reflux 098528608 K2 1.9 [id number] Олег Villarreal MD [address] [place] [address] 10/30/2022 13:23:32 10/30/2022 14:29:12 Adult health examination 328733602 Z00.00 Hyperlipid emia screening 995557169 Z13.220 Diabetes m ellitus screening 625910642 Z13.1 Essential hypertension 44394207 I10 Pain in pelvis 87507563 R10.2 check urine, AIT panel Vaginal discharge 593439 006 N89.8 see above, pending f/u with security officers and guards. [id number] Олег Villarreal MD [address] [place] [address] 11/25/2022 15:44:31 11/25/2022 16:26:01 Essential hypertension 81269229 I10 continue atenololha d been on HCTZ in the pastrefer to cards for consultpri or EKG WNLA1c lipids WNl in October Family his tory of coronary arteriosclerosis 044240849 Z82.49 Musculoskeletal pain 279 780579 M79.10 rec trial of massage/ch iro [id number] Anthony Pacheco MD [address] [place] [address] 12/12/2022 09:40:12 12/12/2022 11:22:41 Upper respiratory infection 00560281 J06.9 Pain in throat 633882851 R07.0 [id number] Олег Villarreal MD [address] [place] [address] 04/08/2023 13:30:32 04/08/2023 14:43:26 Essential hypertension 95002080 I10 pending echo with cardsstres s not covered by insurance, pt plans to discuss with cards Lower abdominal pain 545 00538 R10.30 suspect psoas syndrome but due to family hx of pancreatic cancer and other malignanci es, we can consider CT if she would like. she will first try stretching and therapy approach and then let me know how she wants to proceed. [id number] Олег Villarreal MD [address] [place] [address] 09/03/2023 10:15:05 09/03/2023 10:53:50 Right lateral elbow tendinopathy 9800609168 61418 M77.11 discussed splinting wrist to avoid activation of affected muscles/te ndons to rest while using voltaren topically and other supportive measures but order for PT and xray given if not improving, patient would also like to try topical compounded cream as well which will be faxed in [id number] Олег Villarreal MD [facility] [address] [place] [address] 12/23/2023 13:16:14 12/23/2023 15:37:50 Adult health examination 387364715 Z00.00 Hyperlipid emia screening 796824760 Z13.220 Diabetes m ellitus screening 086653598 Z13.1 Essential hypertension 92588556 I10 continue atenololdi scussed how she may be able to come off med if she has increase in cardio and monitors pressure, consider 1/2 dose if improving and following pressures Onychomycosis 389317359 B35.1 rx faxed to renetta chaves [id number] Олег Villarreal MD [facility] [address] [place] [address] 06/02/2024 13:13:25 06/02/2024 15:18:51 Abdominal pain 54161324 R10.9 Pain of mu ltiple joints 15402503 M25.50 Hyperlipidemia 77518471 E78.5 [id number] ANGIE FERNANDO NP [facility] [address] [place] [address] 08/05/2024 08:55:46 08/05/2024 10:35:21 Abdominal pain 52151595 R10.9 Labs today.Cyril mmend she schedule abdominal CT as previously ordered by Dr. Villarreal. Abdominal bloating 62444 9008 R14.0 Excessive flatus 7717675 7 R14.3 Excessive belching 41509 7000 R14.2 Loose stool 723966285 R1 9.5 Stool studies recommende d. [id number] ANGIE FERNANDO NP [facility] [address] [place] [address] 09/01/2024 08:53:28 09/01/2024 09:31:54 Abdominal pain 90779461 R10.9 Improving. CBC, CMP, CRP unremarkab le. Negative celiac panel. Loose stool 544363259 R1 9.5 Stool studies findings - normal fecal calprotect in, pancreatic elastase, and O&P. GI panel and H. pylori did not result due to age of specimen. With improvemen t in stool consistenc y we will hold off on repeat for now. Recommend metamucil consistent ly, increased water intake. Start OTC probiotic with billion cell count. Lesion of liver 35158906 0 K76.9 4 mm hypodense lesion in [...] - [employer] - PATHWAY X (HMO) [id number] Renée Green [id number] Renée Green 08/05/2024 1 [employer] (O) HIXKY Renée Green [id number] Renée Green Notes Date Note Type Note [...] mother and uncle. Олег Villarreal MD [address] [facility], [place], [address], [place] [facility] [place] 09/03/2023 12:54:16 12/23/2023 text/html ROS as noted [...] yet due for testingPap smear: follows with security officers and guards in [place], 2022 WNL HLP screening: due for screeningDM [...] topical. Олег Villarreal MD [address], [place], [address], [facility] & [place] 12/23/2023 14:23:14 06/02/2024 text/html ROS as noted [...] changes. Олег Villarreal MD [address], [place], [address], [facility] & [place] 06/02/2024 17:28:41 08/05/2024 text/html Renée Green is a 44 yr old female here today by referral for abdominal pain.During the Covid-19 pandemic she moved from [place] to [place]. Stress was increased during this time. She [...] has seemed to help some. She says STILL PUMP OPERATOR also performed a TVUS that was [...] of pancreatic cancer. ANGIE FERNANDO, MAKSIM [address] [facility], [place], [address], [place] [facility] [place] 08/08/2024 15:01:32 09/01/2024 text/html PREVIOUS: Renée Green is a 44 yr old female here today by referral for abdominal pain.During the Covid-19 pandemic she moved from [place] to [place]. Stress was increased during this time. She [...] has seemed to help some. 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 ANGIE FERNANDO, BRAND MARKETING INTERN [address], [place], [address], [facility] - [place] - [place] 09/01/2024 09:43:14 OBGyn Episode No OBEpisode recorded.
--- OUTSIDE RECORDS SUMMARY | 2025-05-31 13:56 | XMS_ITS | Clinical Summary ---
Author Organization [facility] Address [address] [place] [address] Care Team Providers Care Wafer Machine Operator Name Role Phone Gladis Villarreal MD Primary Care Provider [phone] Allergies No known active allergies Medications atenolol [...] patient's age to complete this topic Insurance [facility] Care Teams Wafer Machine Operator Relationship Specialty Start Date End Date Gladis Villarreal MD PCP - General Family Medicine 02/16/23
--- OUTSIDE RECORDS SUMMARY | 2025-05-31 13:56 | XMS_ITS | Clinical Summary ---
Author Organization Healthcare Address [address] [place] [address] Care Team Providers Care Oak Tanner Name Role Phone Shyanne Castro [place] SHAH Primary Care Provider [phone] Allergies No known active allergies Medications lisinopril [...] any time in the past 12 m [facility], were you homeless or living in a half-way (including now)? No 09/07/2024 Utilities Answer Date Recorded In the past 12 months has th e [employer], gas, oil, or water company threatened to [...] Screenings 03/07/2025 [facility]-Adult SDOH Screenings 03/07/2025 09/07/2024 [id number] Vaccine ( season) 2025 10/31/2020, 10/03/2020 [facility]-Influenza [...] to Health Maintenance Insurance DAVID Care Teams Oak Tanner Relationship Specialty Start Date End Date Shyanne Castro APRN [address] [place] [address] PCP - General Family Medicine 09/07/24
--- OUTSIDE RECORDS SUMMARY | 2025-05-31 13:56 | XMS_ITS | Encounter Summary ---
Author Organization Healthcare Address [address] [place] [address] Care Team Providers Care Brooch And Bracelet Maker Name Role Phone Shyanne Castro APRN Primary Care Provider [phone] Deb Devine Unavailable Unavailabl e Encounter Details Date Type Department Care Team (Late st Contact Info) Description 09/07/2024 Outside Procedure External Location [address] [place] [address] Provider, Caden Ashley Social History Tobacco Use Types Packs/Day Years [...] any time in the past [address] [facility], were you homeless or living in a nursing home (including now)? No 09/07/2024 Utilities Answer Date [...] AM EST Narrative 09/07/2024 11:51 AM EST [address] [address] Name: COLE GREEN Exam Date: 09/07/2024 : 1980 Age 44 years Gender: F Physician: GARIMA DAVIS Facility: [facility] Facility HSV: Outpatient Exam: JAZMINE SCRN MAMMO [...] Thank you for referring COLE GREEN to [facility]. Legally authenticated by BRENDA DAVILA 2024-09-07 11:43:54 Procedure Note Provider, Caden Ashley - 09/07/2024 [address] [place] [address] Name: COLE GREEN Exam Date: 09/07/2024 : 1980 Age 44 years Gender: F Physician: GARIMA DAVIS Facility: [facility] Facility HSV: Outpatient Exam: JAZMINE SCRN MAMMO [...] by: Galo Mendiola MD 09/07/2024 11:46 AM [facility] Dictated By: Galo Mendiola Transcribed By: Transcribed On: 09/07/2024 11:43 AM Electronically signed by: Galo Mendiola 09/07/2024 Thank you for referring COLE GREEN to [facility]. Legally authenticated by BRENDA DAVILA 2024-09-07 11:43:54 Generic Ashley Provider IMG BI PROCEDURES Fi nal Result documented in this encounter Visit Diagnoses Not on filedocumented in this encounter Additional Health Concerns Assessment Noted Time PHQ-9 Depression Total Score: 0 09/07/19 9:33 AM EST A Body Mass Index follow-up plan has been documented for the patient 09/07/2024 12:05 PM EST documented as of this encounter Care Teams Brooch And Bracelet Maker Relationship Specialty Start Date End Date Shyanne Castro APRN [address] [place] [address] PCP - General Family Medicine 09/07/24 Deb Devine Clinical Newspaper Subscription Solicitor 09/07/24 10/11/24 documented as of this encounter
[2025-05-31 16:01] LABS: Free T4 (Free Thyroxine) 0.85 ng/dl (0.78-2.19)
[2025-05-31 16:15] LABS: Thyroid Stimulating Hormone 0.35 uIU/mL (0.465-4.68)
== END 2025-05-31 23:59 | disposition home or self-care (01) ==
LOC: LAB 13:39
PROVIDERS: PCP Nurse Practitioner Family; Visit Provider Student in an Organized Health Care Education/Training Program
DX: E05.90 Thyrotoxicosis, unspecified without thyrotoxic crisis or storm (principal)
CPT/HCPCS: 36415; 83520; 84439; 84443

== ENCOUNTER 2025-06-21 16:44 | Outpatient (CLI) | payer OTHER, SELFPAY ==
--- OUTSIDE RECORDS SUMMARY | 2025-06-21 16:48 | XMS_ITS | Patient Health Record ---
Author Organization [facility] Address [address] [facility] [address] [place] [address] Care Team Providers Care Actuarial Technician Name Role Phone Pati Matta [facility] [phone] Reason For Referral No Information Social History [...] Status Risk Notes Problem Contraception care education (713723614) Advised about oral contraception (Z30.09) 010 Active confirmed CONTRACEPTIVE MANAGEMENT Plan Of Treatment No Information Medical (General) History Medical History History ICD Code SOCIAL HX: denies SOCIAL HX: denies denies MICRONOR 0.35 MG TABS (NORETHINDRONE (CO NTRACEPTIVE)) Surgical History Surgery Date(Month/Year) c/s 02/26
--- OUTSIDE RECORDS SUMMARY | 2025-06-21 16:48 | XMS_ITS | Encounter Summary ---
Author Organization Healthcare Address [address] [place] [address] Care Team Providers Care Raker Buffing Wheel Name Role Phone MatthewShyanne Kenyon SHAH Primary Care Provider [phone] Deb Devine Unavailable Unavailable Encounter Details Date Type Department Care Team (Late st Contact Info) Description 09/07/2024 Outside Procedure External Location [address] [place] [address] [place] Social History Tobacco Use Types Packs/Day Years [...] any time in the past 12 m [facility], were you homeless or living in a care home (including now)? No 09/07/2024 Utilities Answer [...] AM EST Narrative 09/07/2024 11:51 AM EST [address] [address] Name: COLE GREEN Exam Date: 09/07/2024 : 1980 Age 44 years Gender: F Physician: GARIMA DAVIS Facility: [facility] Facility HSV: Outpatient Exam: JAZMINE SCRN MAMMO [...] Thank you for referring COLE GREEN to [facility]. Legally authenticated by BRENDA DAVILA 2024-09-07 11:43:54 Procedure Note Provider, [facility] - 09/07/2024 [address] [place] [address] Name: COLE GREEN Exam Date: 09/07/2024 : 1980 Age 44 years Gender: F Physician: GARIMA DAVSI Facility: [facility] Facility HSV: Outpatient Exam: JAZMINE SCRN MAMMO [...] by: Galo Mendiola MD 09/07/2024 11:46 AM [facility] Dictated By: Galo Mendiola Transcribed By: Transcribed On: 09/07/2024 11:43 AM Electronically signed by: Galo Mendiola 09/07/2024 Thank you for referring COLE GREEN to [facility]. Legally authenticated by BRENDA DAVILA 2024-09-07 11:43:54 us Generic [place] Provider IMG BI PROCEDURES Fi nal Result documented in this encounter Visit Diagnoses Not on filedocumented in this encounter Additional Health Concerns Assessment Noted Time PHQ-9 Depression Total Score: 0 09/07/19 9:33 AM EST A Body Mass Index follow-up plan has been documented for the patient 09/07/2024 12:05 PM EST documented as of this encounter Care Teams Raker Buffing Wheel Relationship Specialty Start Date End Date Shyanne Castro APRN [address] [place] [address] PCP - General Family Medicine 09/07/24 Deb Devine Clinical Handle Bender 09/07/24 10/11/24 documented as of this encounter
--- OUTSIDE RECORDS SUMMARY | 2025-06-21 16:48 | XMS_ITS | Clinical Summary ---
Author Organization Healthcare Address [address] [place] [address] Care Team Providers Care Edm Operator Name Role Phone Shyanne Castro Kenyon SHAH Primary Care Provider [phone] Allergies No known active allergies Medications lisinopril [...] any time in the past 12 m [facility], were you homeless or living in a half-way (including now)? No 09/07/2024 Utilities Answer Date Recorded In the past 12 months has th e [employer], gas, oil, or water company threatened to [...] Screenings 03/07/2025 [facility]-Adult SDOH Screenings 03/07/2025 09/07/2024 [id number] Vaccine ( season) 2025 10/31/2020, 10/03/2020 [facility]-Influenza [...] to Health Maintenance Insurance DAVID Care Teams Edm Operator Relationship Specialty Start Date End Date Shyanne Castro APRN [address] [place] [address] PCP - General Family Medicine 09/07/24
--- OUTSIDE RECORDS SUMMARY | 2025-06-21 16:48 | XMS_ITS | Clinical Summary ---
Author Organization [facility] Address [address] [place] [address] Care Team Providers Care Goodwill Ambassador Name Role Phone Gladis Villarreal MD Primary Care Provider [phone] Allergies No known active allergies Medications atenolol [...] patient's age to complete this topic Insurance * Guarantor: Renée Green Account Type Relation to Patient Date of Phone Billing Address Personal/Family Self 1980 [address] [facility] [place] [id number] [facility] Care Teams Goodwill Ambassador Relationship Specialty Start Date End Date Gladis Villarreal MD PCP - General Family Medicine 02/16/23
== END 2025-06-21 23:59 | disposition home or self-care (01) ==
LOC: LAB.DROPOF 16:44
PROVIDERS: PCP Nurse Practitioner Family; Visit Provider Nurse Practitioner
DX: B35.1 Tinea unguium (principal)
CPT/HCPCS: 87101; 87220